=== PATIENT | male | born 1955 | race Caucasian/White ===

== ENCOUNTER 2016-08-14 08:32 | Observation (INO) ==
--- NOTE | 2016-08-14 09:04 | Emergency Department Note ---
Disposition Clinical Impression: Atrial fibrillation with RVR Disposition: Admitted As Inpatient Condition: Fair Time of Disposition: 09:24 Arrhythmia/Palpitations HPI - General Chief Complaint: ED Arrhythmia/Palpitations Stated Complaint: "a-fib" Time Seen by Provider: 08/14/16 08:39 Source: patient Limitations: no limitations Nursing Notes Reviewed: Yes Vital Signs Reviewed: Yes - History of Present Illness HPI Narrative: 60-year-old who has a history of atrial fibrillation in the past he was admitted on amiodarone and then for about 6 months then brought back into the hospital switched to sotalol and beta jassi. He should has been in sinus since that time and developed irregular heartbeat this morning was some exertional chest discomfort. Fred had a cardiac workup in several years. Factors include hypertension, cigarette smoking borderline diabetes. Pt Subjective Complaint: rapid heart beat, irregular heart beat Onset (ago): year(s) Severity: mild, moderate Context: occurred during rest Arrhythmia History: atrial fibrillation Associated symptoms: Reports: denies other symptoms Treatments prior to arrival: beta-jassi - Related Data Home Medications Medication Instructions Recorded Confirmed Albuterol Sulfate [Albuterol 2 puff IH Q6HR PRN 08/14/16 08/14/16 Inhaler] Aspirin [Lo-Dose Aspirin EC] 81 mg PO DAILY 08/14/16 08/14/16 Carvedilol [Coreg] 3.125 mg PO DAILY 08/14/16 08/14/16 Fluticasone/Salmeterol [Advair 1 puff IH Q12H 08/14/16 08/14/16 250-50 Diskus] Furosemide [Lasix] 40 mg PO DAILY 08/14/16 08/14/16 Multivitamin [One Daily Essential] 1 tab PO DAILY 08/14/16 08/14/16 Rivaroxaban [Xarelto] 20 mg PO DAILY 08/14/16 08/14/16 Sotalol HCl [Betapace] 160 mg PO DAILY 08/14/16 08/14/16 Spironolactone [Aldactone] 12.5 mg PO DAILY 08/14/16 08/14/16 Allergies Allergy/AdvReac Type Severity Reaction Status Date / Time lisinopril AdvReac Cough Verified 11/26/15 07:00 flu vaccine Allergy Vomiting Uncoded 11/26/15 07:00 All systems ED: reviewed and negative except as stated. Constitutional: Denies: fever, chills, weakness, weight change Eyes: Denies: eye pain, eye discharge, vision change ENT ED: Denies: ear pain, throat pain, dental pain, hearing loss, epistaxis, congestion, dysphagia Cardiovascular: Reports: palpitations. Denies: chest pain, dyspnea on exertion , edema, syncope Respiratory: Denies: cough, dyspnea, wheezes, hemoptysis, stridor Gastrointestinal: Denies: abdominal pain, nausea, vomiting, diarrhea, constipation, hematemesis, melena, hematochezia Genitourinary: Denies: urgency, dysuria, frequency, hematuria Musculoskeletal: Denies: back pain, neck pain, arthralgia, myalgia Integumentary: Denies: rash, abrasion, lesions Neurological: Denies: headache, weakness, numbness, paresthesias, confusion, abnormal gait, vertigo Psychiatric: Denies: anxiety, depression, suicidal thoughts, homicidal thoughts , auditory hallucinations, visual hallucinations Endocrine: Denies: fatigue Hematological/Lymphatic: Denies: easy bleeding, easy bruising Allergic/Immunologic: Denies: facial swelling, urticaria Past Medical History - Past Medical History Medical history: Reports: atrial fibrillation, COPD, coronary artery disease, diabetes Psychiatric history: Reports: no psych history - Social History Smoking Status: Never smoker Smokeless Tobacco Status: No Alcohol use: Reports: occasionally Drug use: Reports: none Physical Exam - General Limitations: no limitations General appearance: alert, in no apparent distress - Head Head exam: atraumatic, normocephalic, normal inspection - Eye Eye exam: Present: normal appearance, PERRL, EOMI - ENT ENT exam: normal exam, normal oropharynx, mucous membranes moist - Neck Neck exam: Present: normal inspection, full ROM, trachea midline - Chest Chest inspection: Present: normal inspection, symmetric chest wall rise - Respiratory Respiratory exam: Present: normal lung sounds bilaterally - Cardiovascular Cardiovascular exam: Present: tachycardia, irregular rhythm - Abdominal Exam Abdominal exam: Present: soft, Non-Tender. Absent: tenderness, distention, guarding, rebound, rigidity - Extremities Exam Extremities exam: Present: normal inspection, full ROM. Absent: tenderness, pedal edema - Expanded Lower Extremity Exam Neurovascular/Tendon exam: Absent: motor deficit, sensory deficit, tendon deficit Gait: observed and normal - Back Exam Back exam: Present: normal inspection, full ROM. Absent: tenderness - Neurological Exam Neurological exam: Present: alert, oriented X3 - Psychiatric Psychiatric exam: Present: normal affect, normal mood - Skin Skin exam: Present: warm, dry, intact, normal color Course - Consultations Consultation #1: Discussed with cardiology , recommends admission as the patient is in A. fib on a high dose of sotalol. Time: 09:23 Consultation #2: Discussed with , who feels cardiology should admit the patient. 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 Time: 11:07 Consultation #3: I discussed the case with Dr. Soliz the on-call plywood factory worker who would like the patient admitted to the hospitalist. Time: 11:13 Additional Consultation(s): 11:20 AM discussed with , admit to 2. Vital Signs Temperature 97.9 F 08/14/16 08:34 Pulse Rate 110 08/14/16 08:34 Respiratory Rate 16 08/14/16 08:34 Blood Pressure 113/76 08/14/16 08:34 O2 Sat by Pulse Oximetry 96 08/14/16 08:34 Temperature 98 F 08/14/16 11:58 Pulse Rate 114 08/14/16 12:00 Respiratory Rate 17 08/14/16 11:58 Blood Pressure 127/87 08/14/16 11:58 O2 Sat by Pulse Oximetry 99 08/14/16 11:58 Oxygen Delivery Oxygen Delivery Room Air Arrhythmia/Palpitations - Lab Data Result diagrams: 08/14/16 09:07 08/14/16 09:07 Lab Results 08/14/16 08/14/16 08/14/16 Range/Units 09:07 09:07 09:07 WBC 6.9 (4.3-11.1) K/mcL RBC 4.83 (4.19-5.50) M/mcL Hgb 15.1 (12.9-16.9) g/dL Hct 44.3 (37.5-50.1) % MCV 91.7 (83.0-100.0) fL MCH 31.3 (28.0-33.3) pg MCHC 34.1 (31.6-35.5) g/dL RDW 13.1 (11.5-14.5) % Plt Count 185 (140-400) K/mcL MPV 10.2 (9.4-12.4) fL Immature Gran % 0.3 (0-4) % Seg Neutrophils % 59.1 % Lymphocytes % 25.5 % Monocytes % 11.8 % Eosinophils % 2.7 % Basophils % 0.6 % Neutrophils # 4.1 (1.6-8.9) K/mcL Lymphocytes # 1.8 (0.6-4.6) K/mcL Monocytes # 0.8 (0.0-1.3) K/mcL Eosinophils # 0.2 (0.0-0.6) K/mcL Basophils # 0.0 (0.0-0.2) K/mcL PT 17.4 H (9.4-12.1) Seconds INR 1.6 APTT 36.5 H (26.0-36.0) Seconds Sodium 136 (136-145) mEq/L Potassium 4.1 (3.5-4.5) mEq/L Chloride 106 (98-109) mEq/L Carbon Dioxide 22 (19-29) mEq/L BUN 17 (8-26) mg/dL Creatinine 1.00 (0.72-1.25) mg/dL Est GFR ( Amer) > 60 (> 60) Est GFR (Non-Af Amer) > 60 (> 60) BUN/Creatinine Ratio 17 (6-26) Glucose 136 H (70-99) mg/dL Calculated Osmolality 286 (280-300) Calcium 8.8 (8.6-10.8) mg/dL Troponin I (0-0.03) ng/mL TSH 1.797 (0.350-4.840) mcIU/mL 08/14/16 Range/Units 09:07 WBC (4.3-11.1) K/mcL RBC (4.19-5.50) M/mcL Hgb (12.9-16.9) g/dL Hct (37.5-50.1) % MCV (83.0-100.0) fL MCH (28.0-33.3) pg MCHC (31.6-35.5) g/dL RDW (11.5-14.5) % Plt Count (140-400) K/mcL MPV (9.4-12.4) fL Immature Gran % (0-4) % Seg Neutrophils % % Lymphocytes % % Monocytes % % Eosinophils % % Basophils % % Neutrophils # (1.6-8.9) K/mcL Lymphocytes # (0.6-4.6) K/mcL Monocytes # (0.0-1.3) K/mcL Eosinophils # (0.0-0.6) K/mcL Basophils # (0.0-0.2) K/mcL PT (9.4-12.1) Seconds INR APTT (26.0-36.0) Seconds Sodium (136-145) mEq/L Potassium (3.5-4.5) mEq/L Chloride (98-109) mEq/L Carbon Dioxide (19-29) mEq/L BUN (8-26) mg/dL Creatinine (0.72-1.25) mg/dL Est GFR ( Amer) (> 60) Est GFR (Non-Af Amer) (> 60) BUN/Creatinine Ratio (6-26) Glucose (70-99) mg/dL Calculated Osmolality (280-300) Calcium (8.6-10.8) mg/dL Troponin I 0.01 (0-0.03) ng/mL TSH (0.350-4.840) mcIU/mL - EKG Data EKG attestation: Yes I reviewed and interpreted this EKG. Rate: tachycardia Rhythm: A.Fib Interpretation: no acute changes
[2016-08-14 09:23] LABS: Basophils % 0.6 %; Eosinophils # 0.2 K/mcL (0.0-0.6); Eosinophils % 2.7 %; Hematocrit 44.3 % (37.5-50.1); Hemoglobin 15.1 g/dL (12.9-16.9); Immature Granulocytes % 0.3 % (0-4); Lymphocytes # 1.8 K/mcL (0.6-4.6); Lymphocytes % 25.5 %; Mean Corpuscular HGB Conc 34.1 g/dL (31.6-35.5); Mean Corpuscular Hemoglobin 31.3 pg (28.0-33.3); Mean Corpuscular Volume 91.7 fL (83.0-100.0); Mean Platelet Volume 10.2 fL (9.4-12.4); Monocytes # 0.8 K/mcL (0.0-1.3); Monocytes % 11.8 %; Neutrophils # 4.1 K/mcL (1.6-8.9); Platelet Count 185 K/mcL (140-400); Red Blood Count 4.83 M/mcL (4.19-5.50); Red Cell Distribution Width 13.1 % (11.5-14.5); Segmented Neutrophils % 59.1 %
[2016-08-14 09:30] LABS: INR 1.6; Prothrombin Time 17.4 Seconds (9.4-12.1)
[2016-08-14 09:32] LABS: Activated Partial Thrombo Time 36.5 Seconds (26.0-36.0)
[2016-08-14 09:34] LABS: BUN/Creatinine Ratio 17 (6-26); Blood Urea Nitrogen 17 mg/dL (8-26); Calcium 8.8 mg/dL (8.6-10.8); Carbon Dioxide 22 mEq/L (19-29); Chloride 106 mEq/L (98-109); Glucose 136 mg/dL (70-99); Osmolality,Calculated 286 (280-300); Potassium 4.1 mEq/L (3.5-4.5); Sodium 136 mEq/L (136-145); eGFR For African Americans > 60 (> 60); eGFR For Non-African Americans > 60 (> 60)
[2016-08-14 09:56] LABS: Thyroid Stimulating Hormone 1.797 mcIU/mL (0.350-4.840)
[2016-08-14] MEDS ORDERED: Ondansetron 4 MG/2 ML VIAL IVP PRN (11:17)
[2016-08-14] MEDS ORDERED: Naloxone 0.4 MG/ML INJ IVP PRN (11:17)
[2016-08-14] MEDS: Budesonide/Formoterol 80/4.5 MDI IH SCH ×2 (11:30→20:26)
--- NOTE | 2016-08-14 12:35 | Internal Med History&Physical ---
Date of Encounter: 08/14/16 Time of Encounter: 12:35 Assessment and Plan (1) Atrial fibrillation with RVR Current visit: Yes Status: Acute Gave IV Cardizem one dose Resumed home medicatons, may titrate coreg up, starting from next dose Obtain ECHO Cardiology eval Patient is clinically stable (2) Morbid obesity Current visit: Yes Status: Chronic Lifestyle modification Qualifiers: Obesity type: unspecified obesity type Qualified Code(s): E66.01 - Morbid ( severe) obesity due to excess calories (3) Hypertension Current visit: Yes Status: Chronic Controlled, continue current meds Qualifiers: Hypertension type: essential hypertension Qualified Code(s): I10 - Essential (primary) hypertension Internal Medicine - H&P: HPI Chief complaint: Afib Admitted From: Home Plans for Post Hospital Care: Home History of present illness: Mr. Landa is a 60 year old male with Morbid Obesity, HTN, Known Afib, Morbid Obesity, States he was at work (here at [employer] ) and started feeling "wierd", he got an EKG done which showed Afib with RVR, VR 120 He reports he has been in rhythm, for at least 4-5 years and has been complaint with his medications He has no chest pain, chest pressure, palpitations, dizziness, difficulty breathing, orthopnea, PND, or leg swelling He denies illicit drug use After he was found in Afib with RVR, he presented to cardiology clinic, from where he was referred to ER for further eval. Patient mentioned his senior pl sql developer said he may need "cardioversion' At this time of review, he is asymptomatic, his vitals are stable and he is able to participate in the history taking and physicals Work up in ER revealed Afib with RVR, normal CBC, Chem, TSH WNL. Initial troponin negative. Patient is on high dose of sotalol and low dose coreg, he did not miss any medications. He will be placed on observation for afib with RVR with cardiology consultation Past Med Surg Social Fam HX - Past Medical History Medical history: atrial fibrillation, COPD, coronary artery disease, diabetes Psychiatric history: no psych history - Social History Smoking Status: Former smoker Smokeless Tobacco Status: No Alcohol use: occasionally Drug use: none Internal Medicine - H&P: Meds Albuterol Sulfate [Albuterol Inhaler] 2 puff IH Q6HR PRN 08/14/16 [History] Aspirin [Lo-Dose Aspirin EC] 81 mg PO DAILY 08/14/16 [History] Carvedilol [Coreg] 3.125 mg PO DAILY 08/14/16 [History] Fluticasone/Salmeterol [Advair 250-50 Diskus] 1 puff IH Q12H 08/14/16 [History] Furosemide [Lasix] 40 mg PO DAILY 08/14/16 [History] Multivitamin [One Daily Essential] 1 tab PO DAILY 08/14/16 [History] Rivaroxaban [Xarelto] 20 mg PO DAILY 08/14/16 [History] Sotalol HCl [Betapace] 160 mg PO DAILY 08/14/16 [History] Spironolactone [Aldactone] 12.5 mg PO DAILY 08/14/16 [History] Allergies lisinopril Adverse Reaction (Verified 11/26/15 07:00) Cough flu vaccine Allergy (Uncoded 11/26/15 07:00) Vomiting All Systems PM: A 10-system review of systems was performed and is negative for pertinent findings except as documented above in the HPI. - Constitutional Constitutional: no chills, no fever(s), no night sweats - EENT Eyes: no change in vision, no discharge, no pain, no photophobia Ears: no ear discharge, no ear pain, no tinnitus Nose, mouth and throat: no dysphagia, no nasal discharge, no neck pain, no sore throat - Cardiovascular Cardiovascular ROS IM: as per HPI - Respiratory Respiratory: as per HPI - Gastrointestinal Gastrointestinal: no abdominal pain, no diarrhea, no hematemesis, no hematochezia, no melena, no nausea, no vomiting - Musculoskeletal Musculoskeletal ROS IM: no numbness, no tingling - Integumentary Integumentary IM: no rash, no unusual bruising - Neurological Neurological ROS: no confusion, no convulsions, no focal weakness, no numbness, no tingling, no tremor(s) - Hematologic/Lymphatic Hematologic/Lymphatic: no easy bruising - Constitutional Vitals: Temp Pulse Resp BP Pulse Ox 98 F 111 17 127/87 99 08/14/16 11:58 08/14/16 11:58 08/14/16 11:58 08/14/16 11:58 05/09/17 11:58 General appearance: Present: A&O X 3, morbidly obese, pleasant - Head Head exam: Present: atraumatic, normocephalic - Eye Eye exam: Present: PERRL, conjuntiva pink, sclera anicteric Pupils: Present: PERRL - Neck Neck exam general surgery: Present: supple, trachea midline. Absent: lymphadenopathy - Respiratory Respiratory exam: Present: CTAB. Absent: accessory muscle use, rales, rhonchi, wheezes - Cardiovascular Cardiovascular exam: Present: RRR, +S1, +S2. Absent: diastolic murmur, gallop, rubs, systolic murmur - GI/Abdominal GI/Abdominal exam: Present: normal bowel sounds, soft, no peritoneal signs. Absent: distended, tenderness - Extremities Exam Extremities exam: Present: warm, radial pulses palpable and symetrical. Absent : calf tenderness, cyanotic Additional comments: Chronic venous stasis changes, no pedal edema. Bilateral knee scars, normal ROM. Pulses present, no ulcers - Neurological Exam Neurological exam: Present: alert, CN II-XII intact, oriented X3, no focal deficits. Absent: pronater drift, facial droop, speech deficit - Skin Skin exam: Present: dry, intact Internal Med - H&P Results - Labs CBC & Chem 7: 08/14/16 09:07 08/14/16 09:07
--- NOTE | 2016-08-14 13:45 | Cardiology Consult Note ---
Date of Encounter: 08/14/16 Time of Encounter: 13:45 Assessment and Plan (1) Atrial fibrillation with RVR Current Visit: Yes Status: Acute - Continue home medications: Coreg 3.125 mg daily, Lasix 40 mg daily, sotalol 160 mg twice a day, Xarelto 20 mg daily, spironolactone 12.5 mg daily. - TTE ordered to evaluate EF and any wall motion abnormalities. - NPO at midnight for cardioversion tomorrow - suspect pt's chest discomfort from the A fib with RVR. No further ischemic workup necessary at this time. Discussion w patient/family: The assessment and plan as outlined above was discussed with the patient and/or family members who expressed understanding and agreement. All questions were answered. Thank you for involving us in the care of your patient. Please call with any questions. History of Present Illness Consult date: 08/14/16 Requesting physician: Madi Rocha Consult reason: A fib with RVR Chief complaint: palpitations History of present illness: Mr. Landa is a 60 year old male with a past medical history of atrial fibrillation on xarelto, COPD, CAD, diet controlled type 2 diabetes, morbid obesity with BMI 44 who presented to [facility] ED in atrial fibrillation with RVR. Patient states this morning he got up and felt some chest tightness that seemed to come and go. Then walking into work, he got short of breath and felt his pulse racing. 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 fib with RVR. They then sent him down to the emergency department for evaluation. Patient sees fur blowing machine operator Dr. Hager and last appointment was 2016. No medication changes were made at that time. His last heart catheter was done 10/15/2011 showing LVEF 10-15% with minimal CAD. A repeat transthoracic echo on 02/14/2015 showed left ventricular ejection fraction of 50 -55% with mildly dilated LV, mild systolic dysfunction, moderate LAE. Patient states the cardiomyopathy back in 2011 was likely due to his lifestyle. He had been going through a divorce and was drinking at least a 12 pack a day. States he still drinks about 2 beers daily. Occasionally smokes a cigarette. Past Med Surg Social Fam HX - Past Medical History Medical history: atrial fibrillation, COPD, coronary artery disease, diabetes Psychiatric history: no psych history - Social History Smoking Status: Former smoker Smokeless Tobacco Status: No Alcohol use: occasionally Drug use: none Medications and Allergies Albuterol Sulfate [Albuterol Inhaler] 2 puff IH Q6HR PRN 08/14/16 [History] Aspirin [Lo-Dose Aspirin EC] 81 mg PO DAILY 08/14/16 [History] Carvedilol [Coreg] 3.125 mg PO DAILY 08/14/16 [History] Fluticasone/Salmeterol [Advair 250-50 Diskus] 1 puff IH Q12H 08/14/16 [History] Furosemide [Lasix] 40 mg PO DAILY 08/14/16 [History] Multivitamin [One Daily Essential] 1 tab PO DAILY 08/14/16 [History] Rivaroxaban [Xarelto] 20 mg PO DAILY 08/14/16 [History] Sotalol HCl [Betapace] 160 mg PO DAILY 08/14/16 [History] Spironolactone [Aldactone] 12.5 mg PO DAILY 08/14/16 [History] Allergies lisinopril Adverse Reaction (Verified 11/26/15 07:00) Cough flu vaccine Allergy (Uncoded 11/26/15 07:00) Vomiting All Systems Review: A 10-system review of systems was performed and is negative for pertinent findings except as documented above in the HPI. - Constitutional Constitutional: no weakness - EENT Eyes: no blurred vision Nose, mouth and throat: no dysphagia - Cardiovascular Cardiovascular: dyspnea on exertion, palpitations, no chest pain at rest - Respiratory Respiratory: dyspnea, no cough - Gastrointestinal Gastrointestinal: no abdominal pain, no nausea - Genitourinary Genitourinary: no dysuria - Musculoskeletal Musculoskeletal: back pain (chronic), no muscle weakness - Integumentary Integumentary: no rash - Neurological Neurological: no dizziness, no focal weakness Physical Examination Vital Signs, Last 4 Hours Temp Pulse Resp BP Pulse Ox 08/14/16 12:00 114 08/14/16 11:58 98 F 111 17 127/87 99 08/14/16 11:36 18 114/90 08/14/16 11:31 116 19 101/80 98 08/14/16 11:28 110 18 114/90 97 General: Conversant, No Apparent Distress HEENT: Atraumatic, Mucus Membranes Moist Neck: No JVD, Normal carotid pulses Cardiac: Other (a fib with rate 80s-110s) Lungs: Normal Breath Sounds, No Wheeze, Rales, Rhonchi Neuro: Alert and responsive, No focal deficits noted Abdomen: Soft, Non-Tender Skin: No rashes noted on visualized skin Musculoskeletal: No Chest Wall Tenderness Extremities: No Edema, Normal Pulses Results 08/14/16 09:07 08/14/16 09:07 - Imaging and Cardiology Chest Xray: report reviewed - EKG Interpretation EKG results cardiology: personally reviewed, no diagnostic ischemia, other (11: 61- a fib with rvr with rate 140s bpm. QTC 436, Normal axis) Consult Discharge Plan - Plan Referrals: Christopher Poole MD [Primary Care Provider] -
[2016-08-14] MEDS ORDERED: Perflutren Lipid Microsphere 1.3 ML in 0.9 % Sodium Chloride 8.7 ML IVP ONE (16:54)
[2016-08-14] MEDS ORDERED: Perflutren Lipid Microsphere 2 ML VIAL ONE (17:00)
--- NOTE | 2016-08-14 17:08 | Electrocardiograph Report ---
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
--- NOTE | 2016-08-14 17:10 | Electrocardiograph Report ---
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
[2016-08-15 06:13] LABS: Basophils % 0.5 %; Eosinophils # 0.2 K/mcL (0.0-0.6); Eosinophils % 2.4 %; Hematocrit 41.3 % (37.5-50.1); Hemoglobin 14.5 g/dL (12.9-16.9); Immature Granulocytes % 0.2 % (0-4); Lymphocytes # 1.6 K/mcL (0.6-4.6); Lymphocytes % 25.3 %; Mean Corpuscular HGB Conc 35.1 g/dL (31.6-35.5); Mean Corpuscular Volume 91.2 fL (83.0-100.0); Mean Platelet Volume 10.2 fL (9.4-12.4); Monocytes # 0.7 K/mcL (0.0-1.3); Monocytes % 11.3 %; Neutrophils # 3.8 K/mcL (1.6-8.9); Platelet Count 146 K/mcL (140-400); Red Blood Count 4.53 M/mcL (4.19-5.50); Red Cell Distribution Width 12.9 % (11.5-14.5); Segmented Neutrophils % 60.3 %
[2016-08-15 06:21] LABS: BUN/Creatinine Ratio 17 (6-26); Blood Urea Nitrogen 15 mg/dL (8-26); Calcium 8.7 mg/dL (8.6-10.8); Carbon Dioxide 24 mEq/L (19-29); Chloride 105 mEq/L (98-109); Glucose 131 mg/dL (70-99); Magnesium 1.7 mg/dL (1.6-2.6); Osmolality,Calculated 287 (280-300); Phosphorous 3.4 mg/dL (2.3-4.7); Potassium 4.1 mEq/L (3.5-4.5); Sodium 137 mEq/L (136-145); eGFR For African Americans > 60 (> 60); eGFR For Non-African Americans > 60 (> 60)
[2016-08-15] MEDS: Budesonide/Formoterol 80/4.5 MDI IH SCH (08:17)
[2016-08-15] MEDS ORDERED: Multivit/Ca/Min/Fe/FA 1 TAB TABLET PO SCH (09:00)
[2016-08-15] MEDS ORDERED: *HR* Rivaroxaban 10 MG TABLET PO SCH (09:00)
[2016-08-15] MEDS ORDERED: Spironolactone 25 MG TABLET PO SCH (09:00)
[2016-08-15] MEDS ORDERED: Furosemide 40 MG TABLET PO SCH (09:00)
[2016-08-15] MEDS ORDERED: Aspirin Enteric Coated 81 MG Tablet PO SCH (09:00)
--- NOTE | 2016-08-15 11:03 | ECHO - Doppler Report ---
Echo with Imaging Enhancement Agent Name: Duran Landa Date of Study: 08/14/2016 Date: 1955 Ht: 74.0 in Medical Record#: [id number] Age: 60 Wt: 347.0 lb Gender: Male BSA: 2.75 Order #: [id number] Location: [facility] Room #: 2N14 Reading Physician: Bertram Campa DO, FACJAZMIN Tesfaye Title Insurance Agent: Annette Steele Ordering Physician: Yassine Sanchez CNP Primary Physician: Christopher Poole MD Indications: Afib Impressions: Technically sub-optimal due to body habitus. Atrial fibrillation with RVR; HR 100-120 bpm. LVEF 25%. Severely dilated left ventricle. Severe global left ventricular systolic dysfunction. Indeterminate diastolic function. Normal right ventricular structure and function. Severely dilated left atrium. Unable to estimate RVSP due to lack of TR jet. No significant valvular dysfunction. Compared to prior report from 2015, LV size has enlarged and function has decreased. Left Ventricular Wall Motion: Rest Echo Findings The apex, apical inferior, mid inferior, basal inferior, apical anterior, mid anterior, basal anterior, apical septal, mid inferior septal, basal inferior septal, apical lateral, mid anterior lateral, basal anterior lateral, mid anterior septal, mid inferior lateral, basal anterior septal and basal inferior lateral lazaro were hypokinetic. Findings: Study Quality * Technically sub-optimal due to body habitus. ECG Findings * Atrial fibrillation with RVR; HR 100-120 bpm. Left Ventricle * LVEF 25%. * Severely dilated left ventricle. * Severe global left ventricular systolic dysfunction. * Indeterminate diastolic function. Right Ventricle * Normal right ventricular structure and function. Left Atrium * Severely dilated left atrium. Right Atrium * Moderately dilated right atrium. Interatrial Septum * Interatrial septum not well evaluated. Aortic Valve * Aortic valve not well visualized. * No aortic regurgitation. * No aortic stenosis. Mitral Valve * Normal mitral valve structure and function. * No mitral regurgitation. * No mitral stenosis. Tricuspid Valve * Normal tricuspid valve structure and function. * Trace tricuspid regurgitation. * Unable to estimate RVSP due to lack of TR jet. Pulmonic Valve * Pulmonic valve not well visualized. Aorta * Normally sized aortic root. Pericardium * The pericardium appears normal. IVC * Normal IVC dimensions and inspiratory collapse. Pulmonary Artery * Normal visualized portions of the main pulmonary artery. History Hypertension Years 40 Packs 1 Congestive Heart Failure 02/14/2015 a Previous Echo was performed. Contrast: Definity 1.3 ml in 8.7 ml of saline 3 ml. Measurements: BP: 127/ 87 2D Normal Values RVIDd: 4.20 cm <2.7 cm IVSd: 1.10 cm 0.6 - 1.0 cm LVIDd: 6.50 cm 3.7 - 5.6 cm LVPWd: 1.10 cm 0.6 - 1.1 cm LVIDs: 5.10 cm 1.5 - 3.6 cm AO: 3.00 cm < 4.0 cm LA: 5.20 cm 2.0 - 4.0cm %FS: 22.70 cm >25 % LA volume: 115 Mitral Valve Peak E:1.03 m/sec Peak E' Lat Edward:10.2 cm/s Peak E' Med Edward:7.99 cm/s E/E' Lat Ratio:10.1 E/E' Med Ratio:12.9 Tricuspid Valve TV Regurg Peak Grad: 10.00mmHg TV Regurg Peak Edward: 1.55m/sec Updated by Bertram Campa DO, ZELALEM, JAZMIN, ANDRIY on 08/15/2016 10:55:32 AM electronically signed on 08/15/2016 10:58:00 AM with status of Final Wall Motion Pollack: 1=Normal, 2=Hypokinesis, 3=Akinesis, 4=Dyskinesis, 5=Aneurysmal, 6=Hyperkinetic, X=Not Visualized (Blank)=Missing
[2016-08-15] MEDS ORDERED: *HR* Midazolam HCl 5 MG/5 ML VIAL IVP ONE ×2 (11:33→12:06)
[2016-08-15] MEDS ORDERED: *HR* FentaNYL (PF) 250 MCG/5 ML VIAL ONE (11:33)
[2016-08-15] MEDS ORDERED: 0.9 % Sodium Chloride 1,000 ML ONE (11:42)
--- NOTE | 2016-08-15 11:46 | Pre-Sedation Evaluation ---
Pre-sedation evaluation - Pre-sedation checklist Date of procedure: 08/15/16 Procedure: cv Recent Vitals: Last Vital Signs Temp 97.7 F 08/15/16 08:01 Pulse 114 08/15/16 08:52 Resp 16 08/15/16 08:17 BP 109/91 08/15/16 08:01 Pulse Ox 97 08/15/16 08:17 H&P (including ROS) documented in medical record: Yes Previous reaction to sedatives/anesthetics: No Dietary Status: NPO after Midnight Airway Assessment: Patient can open mouth completely, TMJ function normal, Micrognathia (under-bite, receding chin) absent Dentition: No loose teeth or bridges Possible difficult airway: No ASA Classification *see protocol: CLASS II-Mild systemic disease Plan of Care: Pt appropriate candidate for procedure/moderate/conscious sedation , Risks/benefits of procedure/sedation discussed w/ patient/family
--- NOTE | 2016-08-15 13:52 | Event Note ---
Date of Encounter: 08/15/16 Time of Encounter: 10:00 - Cardiology Event Note No acute events overnight. Okay to proceed with cardioversion today.
[2016-08-15 15:32] VITALS: BP 116/82
--- NOTE | 2016-08-15 16:05 | Discharge Summary ---
Date of Encounter: 08/15/16 Time of Encounter: 16:00 - Discharge Diagnosis (1) Atrial fibrillation with RVR Priority: Primary Status: Acute (2) Hypertension Priority: Secondary Status: Chronic Qualifiers: Hypertension type: essential hypertension Qualified Code(s): I10 - Essential (primary) hypertension (3) Morbid obesity Priority: Secondary Status: Chronic Qualifiers: Obesity type: unspecified obesity type Qualified Code(s): E66.01 - Morbid ( severe) obesity due to excess calories - Discharge Medications Home Medications: Albuterol Sulfate [Albuterol Inhaler] 2 puff IH Q6HR PRN 08/14/16 [History] Aspirin [Lo-Dose Aspirin EC] 81 mg PO DAILY 08/14/16 [History] Carvedilol [Coreg] 3.125 mg PO DAILY 08/14/16 [History] Fluticasone/Salmeterol [Advair 250-50 Diskus] 1 puff IH Q12H 08/14/16 [History] Furosemide [Lasix] 40 mg PO DAILY 08/14/16 [History] Multivitamin [One Daily Essential] 1 tab PO DAILY 08/14/16 [History] Rivaroxaban [Xarelto] 20 mg PO DAILY 08/14/16 [History] Sotalol HCl [Betapace] 160 mg PO BID 08/14/16 [History] Spironolactone [Aldactone] 12.5 mg PO DAILY 08/14/16 [History] Allergies/Adverse Reactions: Allergies lisinopril Adverse Reaction (Verified 11/26/15 07:00) Cough flu vaccine Allergy (Uncoded 11/26/15 07:00) Vomiting Procedures/tests Complete & Pending: Procedures Performed prior 72 hours Category Date Time Status CL Cardioversion [CL] Routine Telecommunications Project Manager 08/14/16 15:26 Ordered ECG 12 lead ECG [ECG] Routine Y 08/14/16 11:59 Completed EV echocardiogram w enhance Routine Y 08/14/16 15:25 Completed Date of admission: 08/14/16 11:19 Primary care physician: Christopher Poole MD Consults: 08/14/16 12:37 Consult to Cardiology [CONS] Routine Comment: Consulting Provider: Card[facility] [place] Reason for Consult: Afib with RVR, asymptomatic, referred for possible cardioversion?? from cardiology clinic, kindly evaluate. Thank you. Call Completed: Yes - Patient Status Disposition: Home, Self-Care Condition: Good Functional capacity at discharge: independent ambulation Overall status at discharge: patient is progressing back to baseline - Discharge Instructions Instructions: Atrial Fibrillation (DC), Chronic Hypertension (DC), Obesity (DC) Follow Up With: Christopher Poole MD [Primary Care Provider] - 08/23/16 1:00 pm Estuardo Hager MD [Partnered Physician] - (IN 1 WEEK) Additional Instructions: PLEASE CHECK YOUR BLOOD PRESSURE TWICE DAILY (SAME TIME EVERY DAY IN THE MORNING AND EVENING), WRITE DOWN THE NUMBERS AND BRING RECORD TO DOCTOR'S APPOINTMENT. - Diet and Activity Activity: resume usual activities as tolerated Diet: low fat, low cholesterol, low salt diet Interval History: patient underwent cardioversion this morning with successful conversion to NSR. Hospital course: Mr. 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 His last heart catheter was done 10/15/2011 showing LVEF 10-15% with minimal CAD. Transthoracic echo on 02/14/2015 showed left ventricular ejection fraction of 50 -55% with mildly dilated LV, mild systolic dysfunction, moderate LAE. The day of admission, he got up and felt some chest tightness that seemed to come and go. Then walking into work, he got short of breath and felt his pulse racing. 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 fib with RVR. In our ED, he was in afib with HR of 118 in EKG. He underwent DCCV with successful conversion to NSR. Repeat echocardiogram showed atrial fib with HR 120s, LVEF 25%, severely LV systolic dysfunction. Current EF is likely due to tachycardia induced-- discussed with Dr. Benigno Soliz. Cardioverted successfully today to SR. PLAN: Follow up in the cardiology clinic for repeat echo as outpatient. Continue Sotalol and Coreg. Patient explained in detail his diagnosis and treatment. He verbalized understanding and agreed with the plan. all questions answered. - Time Spent with Patient Total time spent providing and/or coordinating discharge services: - Constitutional Vitals: Temp Pulse Resp BP Pulse Ox 97.4 F L 75 16 116/82 98 08/15/16 15:30 08/15/16 15:30 08/15/16 15:30 08/15/16 15:30 08/15/16 15:30 General appearance: Present: A&O X 3, morbidly obese, pleasant
--- NOTE | 2016-08-15 17:02 | Event Note ---
Date of Encounter: 08/15/16 Time of Encounter: 17:00 - Cardiology Event Note Echo resulted--EF 25%, globally reduced. EF was 50-55% 02/2015. Hx of NICMP with EF 10-15% in 2011 with negative cath. Current CMP thought to be tachycardia induced--discussed with Dr. Benigno Soliz. Cardioverted successfully today to SR. Recommend repeat echo as outpt now that pt is out of A-Fib and not tachycardic. Cardiology signing off. Reconsult PRN. Continue Sotalol and Coreg.
--- NOTE | 2016-08-16 16:03 | Invasive Diagnostic Lab ---
Cardioversion Name: Duran Landa Date of Study: 08/15/2016 : 1955 Ht: 188.0 cm / 74.0 in Medical Record#: [id number] Age: 60 Wt: 158.2 kg / 348.8 lb Gender: Male BSA: 2.75 Location: Fluoro Dose: 5 mGy BMI: 44.76 Operating Physician: Benigno Soliz MD, FACC Referring MD: Procedures Performed: Procedure CARDIOVERSION, EXTERNAL Indications: Description Atrial arrhythmia Impressions: Recommendations: Procedure Description: Following informed consent , the patient was sedated. After adequate sedation was achieved, cardioversion in the AP approach was successful using 300 Joules of biphasic energy. Normal sinus rhythm was restored after 2 attempt(s). The patient was monitored for the standard 30 minutes post procedure. Attempt # 1 200 joules Attempt # 2 300 joules Procedure Medications Time Medication Dose Unit Route Given By 11:45 AM Oxygen 2 L/min nasal cannula Rosemary Campos RN 11:45 AM Versed 2 Mg Intravenous Rosemary Campos RN 11:45 AM Fentanyl 50 Mcg Intravenous Rosemary Campos RN 11:50 AM Oxygen 6 L/min nasal cannula Rosemary Campos RN 11:51 AM Versed 2 Mg Intravenous Rosemary Campos RN 11:51 AM Fentanyl 25 Mcg Intravenous Rosemary Campos RN 11:52 AM Oxygen 6 L/min simple face mask Rosemary Campos RN 11:57 AM Benadryl 50 Mg Intravenous Rosemary Campos RN 11:59 AM Versed 1 Mg Intravenous Rosemary Campos RN 11:59 AM Fentanyl 25 Mcg Intravenous Rosemary Campos RN 12:01 PM Versed 1 Mg Intravenous Rosemary Campos RN 12:01 PM Fentanyl 25 Mcg Intravenous Rosemary Campos RN 12:07 PM Versed 1 Mg Intravenous Rosemary Campos RN 12:07 PM Fentanyl 25 Mcg Intravenous Rosemary Campos RN Contrast: Isovue 0 ml. Complications: No complications occurred during the procedure. Complication None Updated by Benigno Soliz MD, FAC on 08/16/2016 3:58:59 PM electronically signed on 08/16/2016 3:59:41 PM with status of Final
== END 2016-08-15 17:24 | disposition home or self-care (01) ==
LOC: EMEROO 08:32 → 2NNU 08:32
PROVIDERS: ADMIT Internal Medicine; ATTEND Internal Medicine

== ENCOUNTER 2016-08-30 09:59 | Inpatient (IN) ==
--- NOTE | 2016-08-30 10:08 | Emergency Department Note ---
Disposition Clinical Impression: Atrial fibrillation with RVR, Palpitations Disposition: Admitted As Inpatient Condition: Good Referrals: Christopher Poole MD [Primary Care Provider] - Forms: ED Satisfaction Letter Arrhythmia/Palpitations HPI - General Chief Complaint: ED Arrhythmia/Palpitations Stated Complaint: A-Fib Time Seen by Provider: 08/30/16 10:04 Source: patient Mode of arrival: ambulatory Limitations: no limitations Nursing Notes Reviewed: Yes Vital Signs Reviewed: Yes - History of Present Illness Pt Subjective Complaint: rapid heart beat, "heart racing", "skipped beats", palpitations Onset (ago): week(s) (2) Duration: intermittent Severity: moderate Context: occurred during exertion Arrhythmia History: atrial fibrillation, history of electrical cardioversion Associated symptoms: Reports: chest pain, shortness of breath. Denies: near- syncope, nausea, vomiting Treatments prior to arrival: beta-jassi - Related Data Home Medications Medication Instructions Recorded Confirmed Albuterol Sulfate [Albuterol 2 puff IH Q6HR PRN 08/14/16 08/14/16 Inhaler] Aspirin [Lo-Dose Aspirin EC] 81 mg PO DAILY 08/14/16 08/14/16 Carvedilol [Coreg] 3.125 mg PO DAILY 08/14/16 08/14/16 Fluticasone/Salmeterol [Advair 1 puff IH Q12H 08/14/16 08/14/16 250-50 Diskus] Furosemide [Lasix] 40 mg PO DAILY 08/14/16 08/14/16 Multivitamin [One Daily Essential] 1 tab PO DAILY 08/14/16 08/14/16 Rivaroxaban [Xarelto] 20 mg PO DAILY 08/14/16 08/14/16 Sotalol HCl [Betapace] 160 mg PO BID 08/14/16 08/15/16 Spironolactone [Aldactone] 12.5 mg PO DAILY 08/14/16 08/14/16 Allergies Allergy/AdvReac Type Severity Reaction Status Date / Time lisinopril AdvReac Cough Verified 11/26/15 07:00 flu vaccine Allergy Vomiting Uncoded 11/26/15 07:00 All systems ED: reviewed and negative except as stated. Constitutional: Denies: fever Cardiovascular: Reports: chest pain, palpitations, dyspnea on exertion. Denies : edema, syncope Past Medical History - Past Medical History Source: patient, old records reviewed, nursing notes reviewed Medical history: Reports: atrial fibrillation, COPD, coronary artery disease, diabetes Psychiatric history: Reports: no psych history - Social History Smoking Status: Former smoker Smokeless Tobacco Status: No Alcohol use: Reports: occasionally Drug use: Reports: none Physical Exam - General Limitations: no limitations General appearance: alert, in no apparent distress - Head Head exam: atraumatic, normocephalic, normal inspection - Eye Eye exam: Present: normal appearance, PERRL, EOMI - Expanded Eye Exam Pupils: Left: reactive - ENT ENT exam: normal exam, normal oropharynx, mucous membranes moist - Expanded ENT Exam External ear exam: Present: normal external inspection Mouth exam: Present: normal external inspection Teeth exam: Present: normal inspection Throat exam: Present: normal inspection - Neck Neck exam: Present: normal inspection, full ROM, trachea midline - Chest Chest inspection: Present: normal inspection, symmetric chest wall rise - Respiratory Respiratory exam: Present: normal lung sounds bilaterally - Cardiovascular Cardiovascular exam: Present: tachycardia (103), irregular rhythm - Abdominal Exam Abdominal exam: Present: soft, Non-Tender. Absent: tenderness, distention, guarding, rebound, rigidity - Extremities Exam Extremities exam: Present: normal inspection, full ROM. Absent: tenderness, pedal edema - Expanded Upper Extremity Exam Shoulder exam: Present: normal inspection, full ROM Arm exam: Present: normal inspection, full ROM Elbow exam: Present: normal inspection, full ROM Forearm/Wrist exam: Present: normal inspection, full ROM Hand exam: Present: normal inspection, full ROM Vascular exam: Normal: capillary refill, radial pulse - Expanded Lower Extremity Exam Hip/Pelvis exam: Present: normal inspection, full ROM Upper leg exam: Present: normal inspection, full ROM Knee exam: Present: normal inspection, full ROM Lower leg exam: Present: normal inspection, full ROM Ankle exam: Present: normal inspection, full ROM Foot/toe exam: Present: normal inspection, full ROM Neurovascular/Tendon exam: Absent: motor deficit, sensory deficit, tendon deficit - Back Exam Back exam: Present: normal inspection, full ROM. Absent: tenderness - Neurological Exam Neurological exam: Present: alert, oriented X3 - Expanded Neurological Exam Patient oriented to: Present: person, place, time Coma Scale Eye Opening: Spontaneous Coma Scale Motor Response: Obeys Commands Coma Scale Verbal Response: Oriented Coma Scale Total: 15 - Psychiatric Psychiatric exam: Present: normal affect, normal mood - Skin Skin exam: Present: warm, dry, intact, normal color Course - Consultations Consultation #1: cardiology evaluated the patient ER they want admitted to the hospitalist service the plan is to stop the sotalol at amiodarone and possible cardiac ablation Time: 12:22 Vital Signs Temperature 98.1 F 08/30/16 10:02 Pulse Rate 111 08/30/16 10:02 Respiratory Rate 22 08/30/16 10:02 Blood Pressure 170/82 08/30/16 10:02 O2 Sat by Pulse Oximetry 98 08/30/16 10:02 Temperature 98.1 F 08/30/16 10:02 Pulse Rate 98 08/30/16 11:48 Respiratory Rate 18 08/30/16 11:48 Blood Pressure 130/96 08/30/16 11:48 O2 Sat by Pulse Oximetry 98 08/30/16 11:48 Oxygen Delivery Oxygen Delivery Room Air Arrhythmia/Palpitations - Differential Diagnosis Differential Diagnosis: Likely: palpitations, ventricular premature beats, supraventricular tachycardia, ventricular tachycardia, metabolic/electrolyte disturbance - Medical Records Medical records reviewed: Yes I reviewed the patient's medical records. - Lab Data Lab results reviewed: Yes I reviewed the patient's lab results. Result diagrams: 08/30/16 10:25 08/30/16 10:25 Lab Results 08/30/16 08/30/16 08/30/16 Range/Units 10:25 10:25 10:25 WBC 5.9 (4.3-11.1) K/mcL RBC 4.83 (4.19-5.50) M/mcL Hgb 15.2 (12.9-16.9) g/dL Hct 43.9 (37.5-50.1) % MCV 90.9 (83.0-100.0) fL MCH 31.5 (28.0-33.3) pg MCHC 34.6 (31.6-35.5) g/dL RDW 12.7 (11.5-14.5) % Plt Count 185 (140-400) K/mcL MPV 10.0 (9.4-12.4) fL Immature Gran % 0.2 (0-4) % Seg Neutrophils % 51.7 % Lymphocytes % 33.7 % Monocytes % 11.5 % Eosinophils % 2.2 % Basophils % 0.7 % Neutrophils # 3.0 (1.6-8.9) K/mcL Lymphocytes # 2.0 (0.6-4.6) K/mcL Monocytes # 0.7 (0.0-1.3) K/mcL Eosinophils # 0.1 (0.0-0.6) K/mcL Basophils # 0.0 (0.0-0.2) K/mcL PT 16.9 H (9.4-12.1) Seconds INR 1.5 APTT 35.3 (26.0-36.0) Seconds Sodium 137 (136-145) mEq/L Potassium 3.9 (3.5-4.5) mEq/L Chloride 102 (98-109) mEq/L Carbon Dioxide 26 (19-29) mEq/L BUN 18 (8-26) mg/dL Creatinine 1.08 (0.72-1.25) mg/dL Est GFR ( Amer) > 60 (> 60) Est GFR (Non-Af Amer) > 60 (> 60) BUN/Creatinine Ratio 17 (6-26) Glucose 140 H (70-99) mg/dL Calculated Osmolality 288 (280-300) Calcium 9.2 (8.6-10.8) mg/dL Magnesium 1.6 (1.6-2.6) mg/dL Troponin I (0-0.03) ng/mL TSH 1.777 (0.350-4.840) mcIU/mL 08/30/ Range/Units 10:25 WBC (4.3-11.1) K/mcL RBC (4.19-5.50) M/mcL Hgb (12.9-16.9) g/dL Hct (37.5-50.1) % MCV (83.0-100.0) fL MCH (28.0-33.3) pg MCHC (31.6-35.5) g/dL RDW (11.5-14.5) % Plt Count (140-400) K/mcL MPV (9.4-12.4) fL Immature Gran % (0-4) % Seg Neutrophils % % Lymphocytes % % Monocytes % % Eosinophils % % Basophils % % Neutrophils # (1.6-8.9) K/mcL Lymphocytes # (0.6-4.6) K/mcL Monocytes # (0.0-1.3) K/mcL Eosinophils # (0.0-0.6) K/mcL Basophils # (0.0-0.2) K/mcL PT (9.4-12.1) Seconds INR APTT (26.0-36.0) Seconds Sodium (136-145) mEq/L Potassium (3.5-4.5) mEq/L Chloride (98-109) mEq/L Carbon Dioxide (19-29) mEq/L BUN (8-26) mg/dL Creatinine (0.72-1.25) mg/dL Est GFR ( Amer) (> 60) Est GFR (Non-Af Amer) (> 60) BUN/Creatinine Ratio (6-26) Glucose (70-99) mg/dL Calculated Osmolality (280-300) Calcium (8.6-10.8) mg/dL Magnesium (1.6-2.6) mg/dL Troponin I 0.01 (0-0.03) ng/mL TSH (0.350-4.840) mcIU/mL - Radiology Data Radiology results reviewed: Yes I reviewed the patient's radiology results.
[2016-08-30 10:38] LABS: Basophils % 0.7 %; Eosinophils # 0.1 K/mcL (0.0-0.6); Eosinophils % 2.2 %; Hematocrit 43.9 % (37.5-50.1); Hemoglobin 15.2 g/dL (12.9-16.9); Immature Granulocytes % 0.2 % (0-4); Lymphocytes % 33.7 %; Mean Corpuscular HGB Conc 34.6 g/dL (31.6-35.5); Mean Corpuscular Hemoglobin 31.5 pg (28.0-33.3); Mean Corpuscular Volume 90.9 fL (83.0-100.0); Monocytes # 0.7 K/mcL (0.0-1.3); Monocytes % 11.5 %; Platelet Count 185 K/mcL (140-400); Red Blood Count 4.83 M/mcL (4.19-5.50); Red Cell Distribution Width 12.7 % (11.5-14.5); Segmented Neutrophils % 51.7 %
[2016-08-30 10:40] LABS: INR 1.5; Prothrombin Time 16.9 Seconds (9.4-12.1)
[2016-08-30 10:42] LABS: Activated Partial Thrombo Time 35.3 Seconds (26.0-36.0)
[2016-08-30 10:46] LABS: BUN/Creatinine Ratio 17 (6-26); Blood Urea Nitrogen 18 mg/dL (8-26); Calcium 9.2 mg/dL (8.6-10.8); Carbon Dioxide 26 mEq/L (19-29); Chloride 102 mEq/L (98-109); Glucose 140 mg/dL (70-99); Magnesium 1.6 mg/dL (1.6-2.6); Osmolality,Calculated 288 (280-300); Potassium 3.9 mEq/L (3.5-4.5); Sodium 137 mEq/L (136-145); eGFR For African Americans > 60 (> 60); eGFR For Non-African Americans > 60 (> 60)
[2016-08-30 11:08] LABS: Thyroid Stimulating Hormone 1.777 mcIU/mL (0.350-4.840)
[2016-08-30] MEDS ORDERED: 0.9 % Sodium Chloride 1,000 ML IVC ONE (11:17)
--- NOTE | 2016-08-30 12:41 | Cardiology Consult Note ---
Date of Encounter: 08/30/16 Time of Encounter: 11:30 Assessment and Plan (1) Atrial fibrillation with RVR Current Visit: Yes Status: Acute Per Cardiology: Patient with known history of paroxysmal atrial fibrillation previously managed past 4-5 years with sotalol 160 mg by mouth every 12 hours. Recent failed therapy with subsequent increased dose of Coreg and cardioversion within the past few weeks with successful conversion to sinus rhythm on second shock. Now with recurrent A. fib with RVR. Patient reviewed and discussed with Dr. Flores and EP consult completed with Dr. Benigno Soliz. Recommendations for admission and discontinuation sotalol. Once sotalol washout will proceed with by mouth amiodarone 200 mg by mouth twice a day most likely to be started Saturday. Continue with rate control strategy with beta jassi. Possible cardioversion if not rate controlled prior to discharge. TSH and mag stable. Troponin negative 1. (2) Nonischemic cardiomyopathy Current Visit: Yes Status: Acute Per Cardiology: Past history of nonischemic cardio myopathy suspected to be tachycardia induced. Had noted EF of 10% October 2011, 45-50% in 2012 and most recently 50-55% . Echo from last week showed EF down to 25%. Chest x-ray shows mild vascular congestion, patient with mild conversational dyspnea, with edema. We'll discontinue IV fluids and give IV Lasix 40 mg 1 now. Patient discussed and reviewed with Dr. Flores and Dr. Soliz, patient is symptomatically prior to recurrent A. fib and no further ischemic evaluation warranted at this time. (3) [facility] current use of antiarrhythmic drug Current Visit: Yes Status: Chronic Per Cardiology: Recommend admission and discontinuation of sotalol. Will allow for washout with intent to initiate amiodarone this weekend. (4) [facility] current use of anticoagulant Current Visit: Yes Status: Acute Per Cardiology: Patient remains on Xarelto 20 mg by mouth daily. Has not missed any doses. Kidney fxn stable. Denies any active bleeding or blood loss. If were to require DCCV, no [place] would be required. Medical records indicate hx of CVA, however patient denies. (5) SNEHA on CPAP Current Visit: Yes Status: Chronic Per Cardiology: Patient to have bring in home machine. Discussion w patient/family: The assessment and plan as outlined above was discussed with the patient who expressed understanding and agreement. All questions were answered. Thank you for involving us in the care of your patient. Please call with any questions. History of Present Illness Consult date: 08/30/16 Requesting physician: Roland Elkins Consult reason: Afib RVR Chief complaint: Fatigue, BRIGGS, "afib" History of present illness: Mr. Landa is a 61 year old male with relevant past medical history of paroxysmal atrial fibrillation on sotalol therapy and anticoagulated with serosal, history of nonischemic cardiomyopathy, checked sleep apnea with utilization of CPAP, and reported diet-controlled diabetes mellitus. Cardiology consult from ER today for recurrent A. fib with RVR. Patient reports since cardioversion about a week and a half to 2 weeks ago he did feel better for a few days. Unfortunately about one week ago he reports he "went back into A. fib "has been expressing increasing fatigue, dyspnea on exertion, and exertional chest tightness. He reports compliance with sotalol and recent increased dose of Coreg. Additional complaint with his relative denies any active bleeding or blood loss. Reports compliance with CPAP at home. He does report he drinks about 2-3 beers daily. Denies any recent fever, chills, nausea , vomiting, diarrhea, cough. Reports prior to the past few weeks had "been feeling great" and doing his normal activities. Also, prior to this event he denies any chest pain, dyspnea on exertion, or fatigue. Past Med Surg Social Fam HX - Past Medical History Attestation: Yes The following information was validated with the patient. Source: patient, old records reviewed Medical history: atrial fibrillation, COPD, coronary artery disease, diabetes Psychiatric history: no psych history - Social History Smoking Status: Former smoker Smokeless Tobacco Status: No Alcohol use: occasionally Drug use: none Medications and Allergies Albuterol Sulfate [Albuterol Inhaler] 2 puff IH Q6HR PRN 08/14/16 [History] Aspirin [Lo-Dose Aspirin EC] 81 mg PO DAILY 08/14/16 [History] Carvedilol [Coreg] 3.125 mg PO DAILY 08/14/16 [History] Fluticasone/Salmeterol [Advair 250-50 Diskus] 1 puff IH Q12H 08/14/16 [History] Furosemide [Lasix] 40 mg PO DAILY 08/14/16 [History] Multivitamin [One Daily Essential] 1 tab PO DAILY 08/14/16 [History] Rivaroxaban [Xarelto] 20 mg PO DAILY 08/14/16 [History] Sotalol HCl [Betapace] 160 mg PO BID 08/14/16 [History] Spironolactone [Aldactone] 12.5 mg PO DAILY 08/14/16 [History] Allergies lisinopril Adverse Reaction (Verified 11/26/15 07:00) Cough flu vaccine Allergy (Uncoded 11/26/15 07:00) Vomiting All Systems Review: A 10-system review of systems was performed and is negative for pertinent findings except as documented above in the HPI. - Constitutional Constitutional: fatigue - Cardiovascular Cardiovascular: as per HPI, chest pain with exertion, dyspnea on exertion, leg edema Physical Examination Vital Signs, Last 4 Hours Temp Pulse Resp BP Pulse Ox 08/30/16 11:48 98 18 130/96 98 08/30/16 11:35 115 22 127/71 98 08/30/16 10:41 98 08/30/16 10:12 111 22 170/82 98 08/30/16 10:02 98.1 F 111 22 170/82 98 General: Conversant, No Apparent Distress HEENT: Atraumatic, Normocephaly, Mucus Membranes Moist Neck: No JVD, Normal carotid pulses Cardiac: No Murmur, Other (Irregularly irregular) Lungs: Normal Breath Sounds, No Wheeze, Rales, Rhonchi, Other (Slightly diminished bases, mild conversational dyspnea noted) Neuro: Alert and responsive, No focal deficits noted Abdomen: Soft, Non-Tender, Other (Obese) Skin: No rashes noted on visualized skin, Other (lower extremities dusky colored ) Extremities: Normal Pulses, Other (+1 pitting edema to bilateral lower extremities) Results 08/30/16 10:25 08/30/16 10:25 Lab Results Laboratory Tests 08/30/16 08/30/16 08/30/16 10:25 10:25 10:25 Hgb 15.2 Hct 43.9 Plt Count 185 INR 1.5 Potassium 3.9 Creatinine 1.08 Est GFR (Non-Af Amer) > 60 Magnesium 1.6 Troponin I TSH 1.777 08/30/16 10:25 Hgb Hct Plt Count INR Potassium Creatinine Est GFR (Non-Af Amer) Magnesium Troponin I 0.01 TSH ITS Impressions Chest X-Ray 08/30/16 10:07 IMPRESSION: Cardiomegaly with mild pulmonary vascular congestion D/ / Estuardo Fuller MD / Estuardo Fuller MD Interpreting Provider: Estuardo Fuller MD Active Medications Sodium Chloride (0.9 % Sodium Chloride) 1,000 mls @ 150 mls/hr IVC .[id number] ONE Stop: 08/30/16 17:56 Last Admin: 08/30/16 11:32 Dose: 150 mls/hr - Imaging and Cardiology Echo: report reviewed Cardiac cath: report reviewed - EKG Interpretation EKG results cardiology: personally reviewed (afib rvr), other (Currently A. fib with RVR in the 90s to 100s) Consult Discharge Plan - Plan Referrals: Christopher Poole MD [Primary Care Provider] -
[2016-08-30] MEDS ORDERED: Furosemide 40 MG/4 ML VIAL IVP ONE (12:43)
--- NOTE | 2016-08-30 13:08 | Electrocardiograph Report ---
[address] [place], [place] [address] Test Date: 2016-08-30 Pat Name: Duran Landa Department: 105 Room: [facility] Gender: M Quality Assurance Supervisor: : 1955 Requested By: Roland Elkins Order Number: [id number] Reading MD: Gene Flores MD Measurements Intervals [place] Rate: 99 P: MT: 0 QRS: 0 QRSD: 89 T: 31 QT: 364 QTc: 420 Interpretive Statements ATRIAL FIBRILLATION Poor R wave progression Electronically Signed On 08-30-2016 13:07:15 EDT by Gene Flores MD
--- NOTE | 2016-08-30 13:09 | Cardiology Consult Note ---
Date of Encounter: 08/30/16 Time of Encounter: 13:05 Assessment and Plan (1) Atrial fibrillation with RVR Current Visit: Yes Status: Acute Per Electrophysiology: Known hx of PAF, managed past 4-5 years with sotalol 160 mg by mouth every 12 hours. Recent failed therapy with subsequent increased dose of Coreg and successful DCCV within the past 2 weeks. Now with recurrent A. fib with RVR. EP was consulted for recommendations. Reviewed and discussed with Dr. Benigno Soliz. Recommend discontinuation of sotalol. Allow Sotalol washout for 48 hours. Start amiodarone 200 mg PO BID on Saturday. Continue BB and will uptitrate as necessary. Possible DCCV during stay if not rate controlled prior to discharge. TSH and mag stable. Troponin negative 1. Pt anticoagulated on Xarelto with no missed doses in the past month. Will plan to follow-up with EP, Dr. Benigno Soliz as outpt to discuss A-Fib ablation. (2) Nonischemic cardiomyopathy Current Visit: Yes Status: Acute Per Electrophysiology: Hx of NICMP thought to be tachycardia induced. EF of 10% October 2011, then improved to 50-55%. Echo last week shows EF again reduced to 25%. CXR shows mild vascular congestion, patient with mild conversational dyspnea, with edema. Agree with D/Cing IV fluids and give IV Lasix 40 mg 1 now. Current CMP possible tachycardia induced with recurrence of A-Fib. Discussed with Dr. Benigno Soliz. No need for ischemic evaluation during this stay. Recheck echo as outpt to re-evaluate EF, then determine if further work-up is necessary. 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 Will allow for 48 hour washout with intent to initiate amiodarone 200mg BID on Saturday. Discussion w patient/family: The assessment and plan as outlined above was discussed with the patient and/or family members who expressed understanding and agreement. All questions were answered. Thank you for involving us in the care of your patient. Please call with any questions. I will discuss all the above with Dr. Benigno Soliz and make changes as necessary. History of Present Illness Consult date: 08/30/16 Requesting physician: Chico Mccarthy Consult reason: A-Fib Chief complaint: fatigue, dyspnea, chest tightness History of present illness: Mr. Landa is a 61 year old male with relevant PMH of PAF on sotalol and anticoagulated with xarelto, hx of NICMP that initially recovered with recent decrease in EF to 25%, SNEHA with CPAP, and reported diet-controlled diabetes mellitus. Electrophysiology consult from ER today for recurrent A. fib with RVR on Sotalol. Patient had a cardioversion approximately 2 weeks ago and felt better for a few days. One week ago he felt he went back into A. fib. He is symptomatic with increasing fatigue, dyspnea on exertion, and exertional chest tightness. He reports compliance with sotalol and recent increased dose of Coreg. Reports compliance with CPAP at home. He reports he drinking 2-3 beers daily. Reports prior to the past few weeks had been feeling great and doing his normal activities without any chest pain, dyspnea on exertion, or fatigue. Past Med Surg Social Fam HX - Past Medical History Medical history: atrial fibrillation, COPD, coronary artery disease, diabetes Psychiatric history: no psych history - Social History Smoking Status: Former smoker Smokeless Tobacco Status: No Alcohol use: occasionally Drug use: none Medications and Allergies Albuterol Sulfate [Albuterol Inhaler] 2 puff IH Q6HR PRN 08/14/16 [History] Aspirin [Lo-Dose Aspirin EC] 81 mg PO DAILY 08/14/16 [History] Carvedilol [Coreg] 3.125 mg PO BID 08/14/16 [History] Fluticasone/Salmeterol [Advair 250-50 Diskus] 1 puff IH Q12H 08/14/16 [History] Furosemide [Lasix] 40 mg PO DAILY 08/14/16 [History] Multivitamin [One Daily Essential] 1 tab PO DAILY 08/14/16 [History] Rivaroxaban [Xarelto] 20 mg PO DAILY 08/14/16 [History] Sotalol HCl [Betapace] 160 mg PO BID 08/14/16 [History] Spironolactone [Aldactone] 12.5 mg PO DAILY 08/14/16 [History] Allergies lisinopril Adverse Reaction (Verified 11/26/15 07:00) Cough flu vaccine Allergy (Uncoded 11/26/15 07:00) Vomiting All Systems Review: A 10-system review of systems was performed and is negative for pertinent findings except as documented above in the HPI. - Constitutional Constitutional: fatigue - Cardiovascular Cardiovascular: as per HPI, chest pain with exertion, dyspnea on exertion - Respiratory Respiratory: dyspnea Physical Examination Vital Signs Temp Pulse Resp BP Pulse Ox 08/30/16 11:48 98 18 130/96 98 08/30/16 11:35 115 22 127/71 98 08/30/16 10:41 98 08/30/16 10:12 111 22 170/82 98 08/30/16 10:02 98.1 F 111 22 170/82 98 Intake and Output 08/29/16 08/30/16 08/30/16 23:59 07:59 15:59 Other: Weight 156.489 kg Patient Weight 08/30/16 23:59 Weight 156.489 kg General: Conversant, No Apparent Distress HEENT: Atraumatic, Normocephaly, Mucus Membranes Moist Neck: No JVD, Normal carotid pulses Cardiac: Other (irregularly irregular) Lungs: Normal Breath Sounds, No Wheeze, Rales, Rhonchi Neuro: Alert and responsive, No focal deficits noted Abdomen: Soft, Non-Tender Skin: No rashes noted on visualized skin Musculoskeletal: No Chest Wall Tenderness Extremities: No Clubbing, No Cyanosis, Normal Pulses, Other (mild BLE edema noted) Results 08/30/16 10:25 08/30/16 10:25 Short CBC 08/30/16 Range/Units 10:25 WBC 5.9 (4.3-11.1) K/mcL Hgb 15.2 (12.9-16.9) g/dL Hct 43.9 (37.5-50.1) % Plt Count 185 (140-400) K/mcL Neutrophils # 3.0 (1.6-8.9) K/mcL BMP 08/30/16 Range/Units 10:25 Sodium 137 (136-145) mEq/L Potassium 3.9 (3.5-4.5) mEq/L Chloride 102 (98-109) mEq/L Carbon Dioxide 26 (19-29) mEq/L BUN 18 (8-26) mg/dL Creatinine 1.08 (0.72-1.25) mg/dL Glucose 140 H (70-99) mg/dL Calcium 9.2 (8.6-10.8) mg/dL Cardiac Enzymes 08/30/16 Range/Units 10:25 Troponin I 0.01 (0-0.03) ng/mL Impressions Chest X-Ray 08/30/16 10:07 IMPRESSION: Cardiomegaly with mild pulmonary vascular congestion D/ / Estuardo Fuller MD / Estuardo Fuller MD Interpreting Provider: Estuardo Fuller MD - Imaging and Cardiology Echo: report reviewed Cardiac cath: report reviewed - EKG Interpretation EKG results cardiology: personally reviewed Consult Discharge Plan - Plan Referrals: Christopher Poole MD [Primary Care Provider] -
--- NOTE | 2016-08-30 13:13 | Event Note ---
Date of Encounter: 08/30/16 Time of Encounter: 13:11 1. Recurrent A fib with RVR, unclear trigger, had ablation cardiology recomended to stop sotalol and start amiodarone continue Xarelto consider to repeat ablation 2. acute systolic CHF exacerbation due to A fib with RVR, EF 25% start Lasix 40 mg IV BID strict I's and O's daily weight 3) COPD not oxygen dep, stable 4) CAD Inpatient. Time spent 40 min
[2016-08-30] MEDS ORDERED: Naloxone 0.4 MG/ML INJ IVP PRN (13:21)
--- NOTE | 2016-08-30 13:48 | Internal Med History&Physical ---
<Seth Cross Roselyn - Last Filed: 08/30/16 14:19> Date of Encounter: 08/30/16 Time of Encounter: 12:30 Assessment and Plan (1) Atrial fibrillation with RVR Current visit: Yes Status: Acute Assess: Mr. Landa is a 61 year old male who presents from the ED with chief complaint of atrial fibrillation with RVR, palpitations, and shortness of breath with exertion. Patient also reports feeling of chest tightness with no radiation to arms or neck and no muscle weakness. Syeda was cardioverted assess fully on 08/14/16 but came out of rhythm within the past week. Patient has a history of atrial fibrillation. Plan: Continuous cardiac telemetry ordered Repeat EKG Cardiology consult ordered and confirmed Stop sotalol per cardiology Amiodarone to start on 09/01/16 per cardiology Continue Xarelto Consider repeat cardioversion (2) CHF (congestive heart failure) Current visit: Yes Status: Acute Assess: Patient presents with acute congestive heart failure related to A. fib with RVR and current EF of 25% Plan: Lasix 40 mg BID ordered Measure I&O Measure daily weight Monitor patient's vital signs Qualifiers: Congestive heart failure type: unspecified congestive heart failure type Congestive heart failure chronicity: unspecified congestive heart failure chronicity Qualified Code(s): I50.9 - Heart failure, unspecified (3) COPD (chronic obstructive pulmonary disease) Current visit: Yes Status: Chronic Assess: Patient presents with history of chronic obstructive pulmonary disease. Patient reports that 5 years ago he smoked 1-1/2 packs per day. Patient also currently reports SOB with exertion. Plan: O2 @ 2L with titration if SpO2 <92% Continue albuterol inhaler PRN Continue Symbicort Monitor SpO2 Monitor patient's vital signs Falls precautions due to patient's current status of SOB with exertion Bedrest with bathroom privileges Qualifiers: COPD type: unspecified COPD Qualified Code(s): J44.9 - Chronic obstructive pulmonary disease, unspecified (4) CAD (coronary artery disease) Current visit: Yes Status: Chronic Assess: Patient presents with history of coronary artery disease. Plan: Lipitor 40 mg daily ordered Continue low-dose aspirin therapy Continue Coreg Continue Xarelto Continue spironolactone Qualifiers: Coronary Disease-Associated Artery/Lesion type: unspecified vessel or lesion type [place]oi vs. transplanted heart: sun'aq heart Associated angina: without angina Qualified Code(s): I25.10 - Atherosclerotic heart disease of [place] coronary artery without angina pectoris (5) Hypertension Current visit: Yes Status: Chronic Assess: Patient presents with chronic history of hypertension. Plan: Continue spironolactone Qualifiers: Hypertension type: essential hypertension Qualified Code(s): I10 - Essential (primary) hypertension (6) DVT prophylaxis Current visit: Yes Status: Acute Assess: Patient to be continued on current Xarelto and low-dose aspirin therapy as DVT prophylaxis. Antiembolic stockings are contraindicated due to patient's current bilateral lower extremity and pedal edema edema. Internal Medicine - H&P: HPI Chief complaint: Afib with RVR/Palpitations Admitted From: Emergency Dept Plans for Post Hospital Care: Home History of present illness: Mr. Landa is a 61 year old male who presents from the ED with chief complaint of atrial fibrillation with RVR, palpitations, and shortness of breath with exertion. Patient also reports feeling of chest tightness with no radiation to arms or neck and no muscle weakness. Syeda was cardioverted assess fully on 08/14/16 but came out of rhythm within the past week. Patient has a history of atrial fibrillation, coronary artery disease, diabetes and COPD. Patient is also currently hyperlipidemic and morbidly obese. Patient states he was on amiodarone previously 5 years ago but this was discontinued. Recent denies syncope, falls, dizziness, generalized weakness, nausea, vomiting , and diarrhea. Patient reports she drank heavily 5 years ago included a case of beer a day and whiskey. Patient also reports he smoked one pack per day 5 years ago as well. Patient states he has reduced his alcohol use to 2 beers per day and no longer smokes cigarettes. Cardiology consult placed in the ED. I confirmed cardiology plan to stop sotalol and begin administration of amiodarone on Saturday09/01/16 cardiology CMP, Yassine Sanchez. Asians admitted inpatient status with continuous cardiac telemetry, repeat EKG, continuation of Coreg and Xarelto, trending troponins x2, illustration of supplemental O2, and SPO2 monitoring. Lipitor 40 mg daily ordered for current hyperlipidemia. DVT prophylaxis contraindicated due to continuation of Xarelto. Falls precautions with bed rest and bathroom privileges. Patient to be monitored closely. Past Med Surg Social Fam HX - Past Medical History Source: patient Medical history: atrial fibrillation, COPD, coronary artery disease, diabetes ( Patient is currently prediabetic status) Psychiatric history: no psych history - Past Surgical History Surgical History: orthopedic, other (Right shoulder, 3 skips on knees bilaterally, repair of right broken tibia with screws and rods, and bilateral knee replacement.) - Social History Smoking Status: Former smoker Packs per day: 1-1 1/2 PPD Smokeless Tobacco Status: No Alcohol use: occasionally (Patient reports drinking 2 beers per day currently.) , heavy (Patient reports drinking 1 case of beer daily and whiskey 5 years ago. He reports he now only drinks 2 beers per day.) Drug use: none Occupational status: employed Current living situation: Home, With Family Activity Level: Independent ambulation, Very active Recent Out of Country Travel Within the Last 8 Weeks: No Exposure or Possible Exposure to Illness During Travel: No - Family History Mother Race: Family Member Ethnicity: Non- Living Status: Age at : 78 Cause of : Complications from Hep C Father Race: Family Member Ethnicity: Non- Living Status: Cause of : Unknown Brother Race: Family Member Ethnicity: Non- Living Status: Still Living Hx Family Medical Disorders: No Sister Race: Family Member Ethnicity: Non- Living Status: Still Living Hx Family Cardiac Disorders: Yes (BP, Hyperlipidemia) Internal Medicine - H&P: Meds Albuterol Sulfate [Albuterol Inhaler] 2 puff IH Q6HR PRN 08/14/16 [History] Aspirin [Lo-Dose Aspirin EC] 81 mg PO DAILY 08/14/16 [History] Carvedilol [Coreg] 3.125 mg PO BID 08/14/16 [History] Fluticasone/Salmeterol [Advair 250-50 Diskus] 1 puff IH Q12H 08/14/16 [History] Furosemide [Lasix] 40 mg PO DAILY 08/14/16 [History] Multivitamin [One Daily Essential] 1 tab PO DAILY 08/14/16 [History] Rivaroxaban [Xarelto] 20 mg PO DAILY 08/14/16 [History] Sotalol HCl [Betapace] 160 mg PO BID 08/14/16 [History] Spironolactone [Aldactone] 12.5 mg PO DAILY 08/14/16 [History] Allergies lisinopril Adverse Reaction (Verified 11/26/15 07:00) Cough flu vaccine Allergy (Uncoded 11/26/15 07:00) Vomiting All Systems PM: A 10-system review of systems was performed and is negative for pertinent findings except as documented above in the HPI. - Constitutional Constitutional: no chills, no fever(s), no night sweats - EENT Eyes: no change in vision, no discharge, no pain, no photophobia Ears: no ear discharge, no ear pain, no tinnitus Nose, mouth and throat: no dysphagia, no nasal discharge, no neck pain, no sore throat - Breasts Breasts: as per HPI - Cardiovascular Cardiovascular ROS IM: as per HPI, dyspnea, irregular heart rhythm, palpitations , no chest pain, no diaphoresis, no lightheadedness, no syncope - Respiratory Respiratory: wheezing, no cough, no dyspnea, no excessive phlegm production - Gastrointestinal Gastrointestinal: no abdominal pain, no diarrhea, no hematemesis, no hematochezia, no melena, no nausea, no vomiting - Genitourinary Genitourinary ROS male: as per HPI - Musculoskeletal Musculoskeletal ROS IM: no numbness, no tingling - Integumentary Integumentary IM: unusual bruising (Bruising present due to Xarelto), no rash - Neurological Neurological ROS: no confusion, no convulsions, no focal weakness, no numbness, no tingling, no tremor(s) - Psychiatric Psychiatric: as per HPI - Endocrine Endocrine IM: as per HPI - Hematologic/Lymphatic Hematologic/Lymphatic: easy bruising - Allergic/Immunologic Allergic/Immunologic: as per HPI - Constitutional Vitals: Temp Pulse Resp BP Pulse Ox 98.1 F 98 18 130/96 98 08/30/16 10:02 08/30/16 11:48 08/30/16 11:48 08/30/16 11:48 08/30/16 11:48 General appearance: Present: cooperative, A&O X 3, morbidly obese, pleasant, no acute distress, answers questions appropriately - Head Head exam: Present: atraumatic, normocephalic - Eye Eye exam: Present: PERRL, conjuntiva pink, sclera anicteric Pupils: Present: PERRL - ENT ENT exam: Present: normal exam, normal external ear exam - Neck Neck exam general surgery: Present: supple, trachea midline. Absent: lymphadenopathy - Respiratory Respiratory exam: Present: CTAB, wheezes (Mild expiratory wheezes noted bilaterally on auscultation). Absent: accessory muscle use, rales, rhonchi - Cardiovascular Cardiovascular exam: Present: irregular rhythm - GI/Abdominal GI/Abdominal exam: Present: normal bowel sounds, soft, no peritoneal signs. Absent: distended, tenderness - Rectal Rectal exam: Present: deferred - Additional comments: exam deferred. - Extremities Exam Extremities exam: Present: normal capillary refill, pedal edema (Bilaterally), warm, radial pulses palpable and symetrical. Absent: calf tenderness, cyanotic - Back Exam Back exam: Present: normal inspection - Neurological Exam Neurological exam: Present: CN II-XII intact, oriented X3, no focal deficits. Absent: pronater drift, facial droop, speech deficit - Psychiatric Psychiatric exam: Present: normal affect, normal mood - Skin Skin exam: Present: dry, intact Internal Med - H&P Results - Labs CBC & Chem 7: 08/30/16 10:25 08/30/16 10:25 - EKG Data Prior EKG available for review: yes When compared to previous EKG: there is no significant change EKG comments: 08/30/16 13:57 EKG dated 08/14/16 shows atrial fibrillation with rapid ventricular response. EKG dated shows atrial fibrillation - Diagnostic Studies Chest x-ray Additional comments: 1-View CXR chest dated 08/30/16 shows stable cardiomegaly. There appears to be mild pulmonary vascular congestion. No acute airspace disease. No pleural effusion. Overall impression: Cardiomegaly with mild pulmonary vascular congestion. - VTE Reasons for not Prescribing Prophylaxis: Not indicated-Anticoagulated or INR therapeutic <Hebert Parada H - Last Filed: 08/30/16 15:50> Date of Encounter: 08/30/16 Internal Medicine - H&P: HPI History of present illness: Mr. Landa is a 61 year old male All Systems PM: A 10-system review of systems was performed and is negative for pertinent findings except as documented above in the HPI. - Constitutional Vitals: Temp Pulse Resp BP Pulse Ox 98.3 F 100 20 126/110 95 08/30/16 15:46 08/30/16 15:46 08/30/16 15:46 08/30/16 15:46 08/30/16 15:46 Internal Med - H&P Results - Labs CBC & Chem 7: 08/30/16 10:25 08/30/16 10:25 Labs: Cardiac Enzymes 08/30/16 Range/Units 13:41 Troponin I 0.01 (0-0.03) ng/mL - Attending Attestation 1. Recurrent A fib with RVR, unclear trigger, had ablation cardiology recomended to stop sotalol and start amiodarone continue Xarelto consider to repeat ablation 2. acute systolic CHF exacerbation due to A fib with RVR, EF 25% start Lasix 40 mg IV BID strict I's and O's daily weight 3) COPD not oxygen dep, stable 4) CAD Inpatient. Time spent 40 min I examined this patient and my medical decision-making was reviewed with the INTERNAL CONTROL CONSULTANT/PA/Advanced Practice Nurse/Resident Physician. I agree with the documented findings, disposition and treatment plan as described except to the extent set forth below.
[2016-08-30] MEDS ORDERED: Ibuprofen 400 MG TABLET PO PRN (14:09)
[2016-08-30] MEDS ORDERED: *HR* Morphine 2 MG/ML SYRINGE IVP PRN (14:09)
[2016-08-30] MEDS ORDERED: *HR* HYDROcodone/Acet 5/325 mg TABLET PO PRN (14:09)
[2016-08-30] MEDS: Budesonide/Formoterol 80/4.5 MDI IH SCH ×2 (15:46→21:28)
[2016-08-30] MEDS: Furosemide 40 MG TABLET PO SCH (17:51)
[2016-08-31 04:14] LABS: Basophils % 0.6 %; Eosinophils # 0.2 K/mcL (0.0-0.6); Eosinophils % 3.8 %; Hematocrit 42.9 % (37.5-50.1); Hemoglobin 14.4 g/dL (12.9-16.9); Immature Granulocytes % 0.5 % (0-4); Mean Corpuscular HGB Conc 33.6 g/dL (31.6-35.5); Mean Corpuscular Volume 92.3 fL (83.0-100.0); Monocytes # 0.8 K/mcL (0.0-1.3); Neutrophils # 3.3 K/mcL (1.6-8.9); Platelet Count 164 K/mcL (140-400); Red Blood Count 4.65 M/mcL (4.19-5.50); Red Cell Distribution Width 12.8 % (11.5-14.5); Segmented Neutrophils % 51.1 %
[2016-08-31 04:29] LABS: Alanine Aminotransferase 30 Units/L (0-55); Albumin 3.4 g/dL (3.5-5.0); Albumin/Globulin Ratio 1.2 (1.1-2.2); Alkaline Phosphatase 72 Units/L (38-126); Aspartate Amino Transferase 25 Units/L (5-34); BUN/Creatinine Ratio 15 (6-26); Bilirubin,Total 0.8 mg/dL (0.2-1.2); Blood Urea Nitrogen 16 mg/dL (8-26); Calcium 8.7 mg/dL (8.6-10.8); Carbon Dioxide 24 mEq/L (19-29); Chloride 102 mEq/L (98-109); Globulin 2.9 g/dL (2.4-3.5); Glucose 125 mg/dL (70-99); Magnesium 1.6 mg/dL (1.6-2.6); Osmolality,Calculated 287 (280-300); Potassium 3.9 mEq/L (3.5-4.5); Sodium 137 mEq/L (136-145); Total Protein 6.3 g/dL (6.0-8.3); eGFR For African Americans > 60 (> 60); eGFR For Non-African Americans > 60 (> 60)
[2016-08-31] MEDS: Budesonide/Formoterol 80/4.5 MDI IH SCH ×2 (07:59→20:27)
--- NOTE | 2016-08-31 08:22 | Cardiology Progress Note ---
Date of Encounter: 08/31/16 Time of Encounter: 08:30 Assessment and Plan (1) Atrial fibrillation with RVR Current Visit: Yes Status: Acute Per Electrophysiology: Known hx of PAF, managed past 4-5 years with sotalol 160 mg by mouth every 12 hours. Recent failed therapy with subsequent increased dose of Coreg and successful DCCV within the past 2 weeks. Now with recurrent A. fib with RVR. EP consult appreciated-- off sotalol. Allow Sotalol washout for 48 hours. Start amiodarone 200 mg PO BID on Saturday. Continue BB and will uptitrate as necessary-- average heart rate on telemetry as 24 hours 128, currently A. fib at 126. Will discontinue Coreg and start Toprol-XL 25 mg by mouth daily. Systolic blood pressures in the 100s to 110s. Will discontinue Aldactone to allow for blood pressure room for titration of beta jassi. Recommend avoid calcium channel jassi with low EF. Possible DCCV during stay if not rate controlled prior to discharge. TSH and mag stable. Troponin negative 1. Pt anticoagulated on Xarelto with no missed doses in the past month. Will plan to follow-up with EP, Dr. Benigno Soliz as outpt to discuss A-Fib ablation. (2) Nonischemic cardiomyopathy Current Visit: Yes Status: Acute Per Cardiology: Hx of NICMP thought to be tachycardia induced. EF of 10% October 2011, then improved to 50-55%. Echo last week shows EF again reduced to 25. CXR shows mild vascular congestion, patient with mild conversational dyspnea, with edema. On Lasix 40mg PO BID. Net negative 2550ml. Suspect mild systolic HF contributing to RVR. Current CMP possible tachycardia induced with recurrence of A-Fib. Discussed with Dr. Benigno Soliz/Dr. Flores. No need for ischemic evaluation during this stay. Re-check echo as outpt to re-evaluate EF, then determine if further work-up is necessary. (3) long-term current use of antiarrhythmic drug Current Visit: Yes Status: Chronic Per Cardiology: Sotalol off. Will allow for 48 hour washout with intent to initiate amiodarone 200mg BID on Saturday. 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 Has not missed any doses. Kidney fxn stable. Denies any active bleeding or blood loss. If were to require DCCV, no [place] would be required. Medical records indicate hx of CVA, however patient denies. (5) SNEHA on CPAP Current Visit: Yes Status: Chronic Per Cardiology: Patient utilizing home machine. Discussion w patient/family: The assessment and plan as outlined above was discussed with the patient who expressed understanding and agreement. All questions were answered. Thank you for involving us in the care of your patient. Please call with any questions. Subjective Principal diagnosis: Afib RVR Interval history: Patient denies any chest pain. Reports shortness of breath at rest slightly improved. Denies any current palpitations. Denies any concerns or complaints. Reports thoughts well throughout the night. Objective Vital Signs, Last 4 Hours Pulse Resp BP Pulse Ox 08/31/16 07:00 118 19 113/88 95 General: Conversant, No Apparent Distress HEENT: Atraumatic, Normocephaly Cardiac: No Murmur, Other (Irregularly irregular) Lungs: Normal Breath Sounds, No Wheeze, Rales, Rhonchi Neuro: Alert and responsive, No focal deficits noted Skin: No rashes noted on visualized skin Extremities: Other (+1 nonpitting bilateral lower extremity right greater than left edema) Results 08/31/16 03:52 08/31/16 03:52 Lab Results Laboratory Tests 08/31/16 03:52 Creatinine 1.06 Est GFR (Non-Af Amer) > 60 Impressions Chest X-Ray 08/30/16 10:07 IMPRESSION: Cardiomegaly with mild pulmonary vascular congestion D/ / Estuardo Fuller MD / Estuardo Fuller MD Interpreting Provider: Estuardo Fuller MD Active Medications Acetaminophen/Hydrocodone Bitart ([place] 5-325 Mg) 1 tab PO Q4HR PRN PRN Reason: Moderate Pain (4-6) Stop: 03/01/17 14:10 Albuterol Sulfate (Albuterol Inhaler) 2 puff IH Q6HR PRN PRN Reason: Shortness Of Breath Stop: 03/01/17 13:37 Aspirin (Aspirin Ec) 81 mg PO DAILY [facility] Stop: 03/02/17 09:01 Atorvastatin Calcium (Lipitor) 40 mg PO HS [facility] Stop: 03/01/17 21:01 Last Admin: 08/30/16 20:02 Dose: 40 mg Budesonide/Formoterol Fumarate (Symbicort) 2 puff IH [id number] [facility]AI Stop: 03/01/17 13:46 Last Admin: 08/31/16 07:59 Dose: 2 puff Furosemide (Lasix) 40 mg PO BIDDIURETIC [facility]AI Stop: 03/01/17 17:01 Last Admin: 08/30/16 17:51 Dose: 40 mg Ibuprofen (Motrin) 400 mg PO Q6HR PRN PRN Reason: Mild Pain (1-3) Stop: 03/01/17 14:10 Metoprolol Succinate (Toprol Xl) 25 mg PO DAILY [facility] Stop: 03/02/17 09:01 Morphine Sulfate (Morphine Sulfate) 2 mg IVP Q4HR PRN PRN Reason: Severe Pain (7-10) Stop: 03/01/17 14:10 Multivitamins/Calcium (Thera M Plus) 1 tab PO DAILY [facility] Stop: 03/02/17 09:01 Naloxone HCl (Narcan) 0.4 mg IVP Q2MIN PRN PRN Reason: Opioid Reversal Stop: 03/01/17 13:22 Rivaroxaban (Xarelto) 20 mg PO DAILY [facility] Stop: 03/02/17 09:01 - Imaging and Cardiology Chest Xray: report reviewed - EKG Interpretation EKG results cardiology: other (24-hour time she reviewed with average heart rate 128, atrial fibrillation, currently A. fib in the 120s on telemetry) - VTE Reasons for not Prescribing Prophylaxis: Not indicated-Anticoagulated or INR therapeutic Consult Discharge Plan - Plan Referrals: Christopher Poole MD [Primary Care Provider] -
[2016-08-31] MEDS ORDERED: Metoprolol XL (24 HR) Succ 25 MG TAB.ER.24H PO SCH (09:00)
[2016-08-31] MEDS ORDERED: Spironolactone 25 MG TABLET PO SCH (09:00)
[2016-08-31] MEDS: *HR* Rivaroxaban 10 MG TABLET PO SCH (09:51)
[2016-08-31] MEDS: Aspirin Enteric Coated 81 MG Tablet PO SCH (09:51)
[2016-08-31] MEDS: Multivit/Ca/Min/Fe/FA 1 TAB TABLET PO SCH (09:51)
[2016-08-31] MEDS: Furosemide 40 MG TABLET PO SCH ×2 (09:51→16:12)
--- NOTE | 2016-08-31 13:15 | Internal Med Progress Note ---
<Bennett Skaggs P - Last Filed: 08/31/16 13:40> Date of Encounter: 08/31/16 - Constitutional Vitals: Temp Pulse Resp BP Pulse Ox 98.1 F 91 19 113/100 95 08/31/16 03:53 08/31/16 12:45 08/31/16 07:00 08/31/16 12:45 08/31/16 07:00 Internal Medicine: Result - Labs CBC & Chem 7: 08/31/16 03:52 08/31/16 03:52 Labs: Short CBC 08/31/16 Range/Units 03:52 WBC 6.4 (4.3-11.1) K/mcL Hgb 14.4 (12.9-16.9) g/dL Hct 42.9 (37.5-50.1) % Plt Count 164 (140-400) K/mcL Neutrophils # 3.3 (1.6-8.9) K/mcL BMP 08/31/16 03:52 Sodium 137 Potassium 3.9 Chloride 102 Carbon Dioxide 24 BUN 16 Creatinine 1.06 Glucose 125 H Calcium 8.7 Cardiac Enzymes 08/30/16 08/30/16 Range/Units 13:41 19:38 Troponin I 0.01 0.00 (0-0.03) ng/mL Liver Function 08/31/16 Range/Units 03:52 Total Bilirubin 0.8 (0.2-1.2) mg/dL AST 25 (5-34) Units/L ALT 30 (0-55) Units/L Alkaline Phosphatase 72 (38-126) Units/L Albumin 3.4 L (3.5-5.0) g/dL - ABG Interpretation ABG results: PT/INR, D-dimer PT 16.9 Seconds (9.4-12.1) H 08/30/16 10:25 Consult Discharge Plan - Plan Referrals: Christopher Poole MD [Primary Care Provider] - - Attending Attestation I examined this patient and my medical decision-making was reviewed with the BODYWORK THERAPIST/PA/Advanced Practice Nurse/Resident Physician. I agree with the documented findings, disposition and treatment plan as described except to the extent set forth below. <Bahman Albrecht - Last Filed: 08/31/16 16:43> Date of Encounter: 08/31/16 Time of Encounter: 10:00 - Assessment and plan (1) Atrial fibrillation with RVR Current Visit: Yes Status: Acute Assessment and plan: - Still in A-fib at rate as high as 130s this morning. - Patient was on sotalol for past 4-5 years but recently hospitalized 2 weeks ago for A-fib RVR. Patient had successful cardioversion on 08/14/16 but back to A- fib again within a week after discharge. - Cardiology on board and plans to start amiodarone 200 mg PO BID on Saturday ( after 48-hour sotalol washout). - Continue Toprol XL. - Continue to monitor with telemetry. (2) Nonischemic cardiomyopathy Current Visit: Yes Status: Acute Assessment and plan: - History of nonischemic cardiomyopathy likely tachycardia-induced. - LVEF was 10% in October 2011, then improved to 50-55% but latest echo on 08/14/16 showed LVEF 25%. - CXR on admission shows mild vascular congestion. - Continue diuresis with Lasix. Net negative 2.3 L since admission. - Strict I/O, daily weigh, fluid restriction. - Continue to monitor. (3) COPD (chronic obstructive pulmonary disease) Current Visit: Yes Status: Chronic Assessment and plan: - Continue bronchodilators and Symbicort. Qualifiers: COPD type: unspecified COPD Qualified Code(s): J44.9 - Chronic obstructive pulmonary disease, unspecified (4) SNEHA on CPAP Current Visit: Yes Status: Chronic Assessment and plan: - Continue CPAP use at night or sleep during patient's hospital stay. (5) Hypertension Current Visit: Yes Status: Chronic Assessment and plan: - BP within normal range. - Continue current antihypertensive regimen. Qualifiers: Hypertension type: essential hypertension Qualified Code(s): I10 - Essential (primary) hypertension - Subjective Interval history: No significant event noted overnight. Patient was seen and examined this morning. Patient reports his symptoms are only exertion with shortness of breath , racing heart and chest tightness on exertion. Patient denies syncope, fever, chills, nausea, vomiting, diarrhea. Patient is aware of cardiology's plan to switch him to Amiodarone. Patient is still in A-fib with rate as high as 130s per bedside monitor. - Constitutional Vitals: Temp Pulse Resp BP Pulse Ox 98.1 F 91 19 113/100 95 08/31/16 03:53 08/31/16 12:45 08/31/16 07:00 08/31/16 12:45 08/31/16 07:00 General appearance: Present: cooperative, A&O X 3, morbidly obese, pleasant, no acute distress, answers questions appropriately - Head Head exam: Present: atraumatic, normocephalic - Eye Eye exam: Present: EOMI, PERRL, conjuntiva pink, sclera anicteric - Neck Neck exam general surgery: Present: supple, trachea midline. Absent: lymphadenopathy - Respiratory Respiratory exam: Present: CTAB. Absent: accessory muscle use, rales, rhonchi, wheezes - Cardiovascular Cardiovascular exam: Present: irregular rhythm, +S1, +S2, tachycardia. Absent: diastolic murmur, gallop, rubs, systolic murmur - GI/Abdominal GI/Abdominal exam: Present: normal bowel sounds, soft, no peritoneal signs. Absent: distended, tenderness - Extremities Exam Extremities exam: Present: pedal edema (Mild to moderate), warm, radial pulses palpable and symetrical. Absent: calf tenderness, cyanotic - Neurological Exam Neurological exam: Present: CN II-XII intact, oriented X3, no focal deficits. Absent: pronater drift, facial droop, speech deficit - Skin Skin exam: Present: dry, intact, warm Internal Medicine: Result - Labs CBC & Chem 7: 08/31/16 03:52 08/31/16 03:52 Labs: Short CBC 08/31/16 Range/Units 03:52 WBC 6.4 (4.3-11.1) K/mcL Hgb 14.4 (12.9-16.9) g/dL Hct 42.9 (37.5-50.1) % Plt Count 164 (140-400) K/mcL Neutrophils # 3.3 (1.6-8.9) K/mcL BMP 08/31/16 03:52 Sodium 137 Potassium 3.9 Chloride 102 Carbon Dioxide 24 BUN 16 Creatinine 1.06 Glucose 125 H Calcium 8.7 Cardiac Enzymes 08/30/16 08/30/16 Range/Units 13:41 19:38 Troponin I 0.01 0.00 (0-0.03) ng/mL Liver Function 08/31/16 Range/Units 03:52 Total Bilirubin 0.8 (0.2-1.2) mg/dL AST 25 (5-34) Units/L ALT 30 (0-55) Units/L Alkaline Phosphatase 72 (38-126) Units/L Albumin 3.4 L (3.5-5.0) g/dL - ABG Interpretation ABG results: PT/INR, D-dimer PT 16.9 Seconds (9.4-12.1) H 08/30/16 10:25 - VTE Reasons for not Prescribing Prophylaxis: Not indicated-Anticoagulated or INR therapeutic
[2016-08-31] MEDS ORDERED: Metoprolol XL (24 HR) Succ 25 MG TAB.ER.24H PO ONE (13:40)
[2016-08-31] MEDS ORDERED: Acetaminophen 325 MG TABLET PO PRN (14:05)
[2016-09-01 04:55] LABS: BUN/Creatinine Ratio 23 (6-26); Blood Urea Nitrogen 22 mg/dL (8-26); Calcium 8.8 mg/dL (8.6-10.8); Carbon Dioxide 26 mEq/L (19-29); Chloride 101 mEq/L (98-109); Glucose 118 mg/dL (70-99); Osmolality,Calculated 288 (280-300); Potassium 3.6 mEq/L (3.5-4.5); Sodium 137 mEq/L (136-145); eGFR For African Americans > 60 (> 60); eGFR For Non-African Americans > 60 (> 60)
[2016-09-01] MEDS: Budesonide/Formoterol 80/4.5 MDI IH SCH ×2 (08:04→20:25)
[2016-09-01] MEDS: *HR* Rivaroxaban 10 MG TABLET PO SCH (08:28)
[2016-09-01] MEDS: Aspirin Enteric Coated 81 MG Tablet PO SCH (08:28)
[2016-09-01] MEDS: Metoprolol XL (24 HR) Succ 25 MG TAB.ER.24H PO SCH (08:28)
[2016-09-01] MEDS: Multivit/Ca/Min/Fe/FA 1 TAB TABLET PO SCH (08:28)
[2016-09-01] MEDS: Furosemide 40 MG TABLET PO SCH ×2 (08:28→16:56)
--- NOTE | 2016-09-01 10:35 | Cardiology Progress Note ---
Date of Encounter: 09/01/16 Time of Encounter: 08:45 Assessment and Plan (1) Atrial fibrillation with RVR Current Visit: Yes Status: Acute Per Cardiology: Known hx of PAF, managed past 4-5 years with sotalol 160 mg by mouth every 12 hours. Recent failed therapy with subsequent increased dose of Coreg and successful DCCV within the past 2 weeks. Now with recurrent A. fib with RVR. TSH and mag stable. Troponin negative 3. Off Sotalol. ECG today showed A. fib with RVR at 117, QT/QTC 316/386. Per previous discussion with EP, will initiate amiodarone 200 mg PO BID. On Toprol-XL 50 mg by mouth daily. Systolic blood pressure in the 90s to 100s. We'll titrate beta jassi if able. Recommend avoid calcium channel jassi with low EF. Possible DCCV during stay if not rate controlled prior to discharge. Will plan to follow-up with EP, Dr. Benigno Soliz as outpt to discuss A-Fib ablation once rate controlled. Pt anticoagulated on Xarelto with no missed doses in the past month. (2) Nonischemic cardiomyopathy Current Visit: Yes Status: Acute Per Cardiology: Hx of NICMP thought to be tachycardia induced. EF of 10% October 2011, then improved to 50-55%. Echo last week shows EF again reduced to 25. On Lasix 40mg PO BID. I&O net -2570ml. Suspect mild systolic HF contributing to RVR. Current CMP possible tachycardia induced with recurrence of A-Fib. Discussed with Dr. Benigno Soliz/Dr. Flores. No need for ischemic evaluation during this stay. Re- check echo as outpt to re-evaluate EF, then determine if further work-up is necessary. Consider adding ARB if able once afib rate controlled. 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 Will initiate amiodarone 200mg BID. (4) residential current use of anticoagulant Current Visit: Yes Status: Acute Per Cardiology: Patient remains on Xarelto 20 mg by mouth daily. Has not missed any doses. Kidney fxn stable. Denies any active bleeding or blood loss. If were to require DCCV, no [place] would be required. Medical records indicate hx of CVA, however patient denies. (5) SNEHA on CPAP Current Visit: Yes Status: Chronic Per Cardiology: Patient utilizing home machine. Discussion w patient/family: The assessment and plan as outlined above was discussed with the patient who expressed understanding and agreement. All questions were answered. Thank you for involving us in the care of your patient. Please call with any questions. Subjective Principal diagnosis: Afib RVR Interval history: Patient denies any chest pain. Reports shortness of breath at rest slightly improved. Denies any current palpitations. Denies any concerns or complaints. Reports slept well throughout the night. Objective Vital Signs, Last 4 Hours Temp Pulse Resp BP Pulse Ox 09/01/16 08:05 16 96 09/01/16 07:32 97.6 F 111 16 107/93 97 General: Conversant, No Apparent Distress HEENT: Atraumatic, Normocephaly, Mucus Membranes Moist Neck: No JVD, Normal carotid pulses Cardiac: No Murmur, Other (Irregularly irregular) Lungs: Normal Breath Sounds, No Wheeze, Rales, Rhonchi Neuro: Alert and responsive, No focal deficits noted Abdomen: Soft, Non-Tender Skin: No rashes noted on visualized skin Musculoskeletal: No Chest Wall Tenderness Extremities: Normal Pulses, Other (+1 nonpitting bilateral lower extremity) Results 08/31/16 03:52 09/01/16 03:39 Lab Results Laboratory Tests 08/30/16 08/30/16 08/30/16 10:25 13:41 19:38 Troponin I 0.01 0.01 0.00 Active Medications Acetaminophen (Tylenol) 650 mg PO Q6HR PRN PRN Reason: Mild Pain Stop: 03/02/17 14:06 Acetaminophen/Hydrocodone Bitart ([place] 5-325 Mg) 1 tab PO Q4HR PRN PRN Reason: Moderate Pain (4-6) Stop: 03/01/17 14:10 Albuterol Sulfate (Albuterol Inhaler) 2 puff IH Q6HR PRN PRN Reason: Shortness Of Breath Stop: 03/01/17 13:37 Amiodarone HCl (Cordarone) 200 mg PO BID SARAI Stop: 03/03/17 10:46 Aspirin (Aspirin Ec) 81 mg PO DAILY [facility]AI Stop: 03/02/17 09:01 Last Admin: 09/01/16 08:28 Dose: 81 mg Atorvastatin Calcium (Lipitor) 40 mg PO HS SARAI Stop: 03/01/17 21:01 Last Admin: 08/31/16 21:41 Dose: 40 mg Budesonide/Formoterol Fumarate (Symbicort) 2 puff IH [id number] SARAI Stop: 03/01/17 13:46 Last Admin: 09/01/16 08:04 Dose: 2 puff Furosemide (Lasix) 40 mg PO BIDDIURETIC SARAI Stop: 03/01/17 17:01 Last Admin: 09/01/16 08:28 Dose: 40 mg Metoprolol Succinate (Toprol Xl) 50 mg PO DAILY [facility] Stop: 03/03/17 09:01 Last Admin: 09/01/16 08:28 Dose: 50 mg Morphine Sulfate (Morphine Sulfate) 2 mg IVP Q4HR PRN PRN Reason: Severe Pain (7-10) Stop: 03/01/17 14:10 Multivitamins/Calcium (Thera M Plus) 1 tab PO DAILY [facility] Stop: 03/02/17 09:01 Last Admin: 09/01/16 08:28 Dose: 1 tab Naloxone HCl (Narcan) 0.4 mg IVP Q2MIN PRN PRN Reason: Opioid Reversal Stop: 03/01/17 13:22 Rivaroxaban (Xarelto) 20 mg PO DAILY [facility] Stop: 03/02/17 09:01 Last Admin: 09/01/16 08:28 Dose: 20 mg - EKG Interpretation EKG results cardiology: other (Telemetry reviewed with average heart rate 117 the past 12 hours, remains atrial fibrillation, currently A. fib in the 120s) - VTE Reasons for not Prescribing Prophylaxis: Not indicated-Anticoagulated or INR therapeutic Consult Discharge Plan - Plan Referrals: Christopher Poole MD [Primary Care Provider] -
--- NOTE | 2016-09-01 11:17 | Internal Med Progress Note ---
Date of Encounter: 09/01/16 Time of Encounter: 11:15 - Assessment and plan (1) Atrial fibrillation with RVR Current Visit: Yes Status: Acute Assessment and plan: - Still in A-fib at rate as high as 130s this morning. - Patient was on sotalol for past 4-5 years but recently hospitalized 2 weeks ago for A-fib RVR. Patient had successful cardioversion on 08/14/16 but back to A- fib again within a week after discharge. - Cardiology on board and plans to start amiodarone 200 mg PO BID on Saturday ( after 48-hour sotalol washout). - Continue Toprol XL. - Continue to monitor with telemetry. 09/01/2016 Noted that this morning heart rate is still in the 130s. Cardiology on board. Noted that plan is to start amiodarone today. We will follow the recommendation from cardiology. (2) Nonischemic cardiomyopathy Current Visit: Yes Status: Acute Assessment and plan: - History of nonischemic cardiomyopathy likely tachycardia-induced. - LVEF was 10% in October 2011, then improved to 50-55% but latest echo on 08/14/16 showed LVEF 25%. - CXR on admission shows mild vascular congestion. - Continue diuresis with Lasix. Net negative 2.3 L since admission. - Strict I/O, daily weigh, fluid restriction. - Continue to monitor. (3) COPD (chronic obstructive pulmonary disease) Current Visit: Yes Status: Chronic Assessment and plan: - Continue bronchodilators and Symbicort. Qualifiers: COPD type: unspecified COPD Qualified Code(s): J44.9 - Chronic obstructive pulmonary disease, unspecified (4) SNEHA on CPAP Current Visit: Yes Status: Chronic Assessment and plan: - Continue CPAP use at night or sleep during patient's hospital stay. - Subjective Interval history: Seen and examined. Chart reviewed. Patient is comfortably sitting up in a chair. Patient denies chest pain, shortness of breath, palpitation or any flutter sensation. - Constitutional Vitals: Temp Pulse Resp BP Pulse Ox 97.6 F 111 16 107/93 96 09/01/16 07:32 09/01/16 07:32 09/01/16 08:05 09/01/16 07:32 09/01/16 08:05 General appearance: Present: cooperative, A&O X 3, morbidly obese, pleasant, no acute distress, answers questions appropriately - Head Head exam: Present: atraumatic, normocephalic - Eye Eye exam: Present: PERRL, conjuntiva pink, sclera anicteric Pupils: Present: PERRL - Neck Neck exam general surgery: Present: supple, trachea midline. Absent: lymphadenopathy - Respiratory Respiratory exam: Present: CTAB. Absent: accessory muscle use, rales, rhonchi, wheezes - Cardiovascular Cardiovascular exam: Present: RRR, +S1, +S2. Absent: diastolic murmur, gallop, rubs, systolic murmur - GI/Abdominal GI/Abdominal exam: Present: normal bowel sounds, soft, no peritoneal signs. Absent: distended, tenderness - Extremities Exam Extremities exam: Present: warm, radial pulses palpable and symetrical. Absent : calf tenderness, cyanotic, pedal edema - Neurological Exam Neurological exam: Present: CN II-XII intact, oriented X3, no focal deficits. Absent: pronater drift, facial droop, speech deficit - Skin Skin exam: Present: dry, intact Internal Medicine: Result - Labs CBC & Chem 7: 08/31/16 03:52 09/01/16 03:39 Labs: BMP 09/01/16 03:39 Sodium 137 Potassium 3.6 Chloride 101 Carbon Dioxide 26 BUN 22 Creatinine 0.96 Glucose 118 H Calcium 8.8 - ABG Interpretation ABG results: PT/INR, D-dimer PT 16.9 Seconds (9.4-12.1) H 08/30/16 10:25 - VTE Reasons for not Prescribing Prophylaxis: Not indicated-Anticoagulated or INR therapeutic Consult Discharge Plan - Plan Referrals: Christopher Poole MD [Primary Care Provider] -
[2016-09-01] MEDS: *HR* Amiodarone 200 MG TABLET PO SCH ×2 (12:11→20:12)
[2016-09-02 05:39] LABS: Basophils % 0.6 %; Eosinophils # 0.2 K/mcL (0.0-0.6); Eosinophils % 3.4 %; Hematocrit 42.5 % (37.5-50.1); Hemoglobin 14.8 g/dL (12.9-16.9); Immature Granulocytes % 0.4 % (0-4); Immature Platelets 4.5 % (1.1-6.1); Lymphocytes # 2.2 K/mcL (0.6-4.6); Lymphocytes % 32.2 %; Mean Corpuscular HGB Conc 34.8 g/dL (31.6-35.5); Mean Corpuscular Hemoglobin 31.6 pg (28.0-33.3); Mean Corpuscular Volume 90.6 fL (83.0-100.0); Mean Platelet Volume 10.3 fL (9.4-12.4); Monocytes # 0.9 K/mcL (0.0-1.3); Monocytes % 12.8 %; Neutrophils # 3.4 K/mcL (1.6-8.9); Platelet Count 170 K/mcL (140-400); Red Blood Count 4.69 M/mcL (4.19-5.50); Red Cell Distribution Width 12.6 % (11.5-14.5); Segmented Neutrophils % 50.6 %
[2016-09-02 06:08] LABS: Alanine Aminotransferase 27 Units/L (0-55); Albumin 3.4 g/dL (3.5-5.0); Albumin/Globulin Ratio 1.1 (1.1-2.2); Alkaline Phosphatase 96 Units/L (38-126); Aspartate Amino Transferase 18 Units/L (5-34); BUN/Creatinine Ratio 19 (6-26); Bilirubin,Total 0.5 mg/dL (0.2-1.2); Blood Urea Nitrogen 21 mg/dL (8-26); Carbon Dioxide 27 mEq/L (19-29); Chloride 102 mEq/L (98-109); Glucose 126 mg/dL (70-99); Osmolality,Calculated 291 (280-300); Potassium 4.1 mEq/L (3.5-4.5); Sodium 138 mEq/L (136-145); Total Protein 6.4 g/dL (6.0-8.3); eGFR For African Americans > 60 (> 60); eGFR For Non-African Americans > 60 (> 60)
[2016-09-02] MEDS: Budesonide/Formoterol 80/4.5 MDI IH SCH ×2 (07:57→20:27)
--- NOTE | 2016-09-02 08:13 | Cardiology Progress Note ---
Date of Encounter: 09/02/16 Time of Encounter: 09:00 Assessment and Plan (1) Atrial fibrillation with RVR Current Visit: Yes Status: Acute Per Cardiology: Known hx of PAF, managed past 4-5 years with sotalol 160 mg by mouth every 12 hours. Recent failed therapy with subsequent increased dose of Coreg and successful DCCV within the past 2 weeks. Now with recurrent A. fib with RVR. TSH and mag stable. Troponin negative 3. Off Sotalol. ECG today showed A. fib with RVR. On amiodarone 200 mg PO BID and Toprol-XL 50 mg by mouth daily. Systolic blood pressure in the 90s to 100s. We'll titrate beta jassi if able. Recommend avoid calcium channel jassi with low EF. Possible DCCV tomorrow. Will plan to follow-up with EP, Dr. Benigno Soliz as outpt to discuss A-Fib ablation once rate controlled. Pt anticoagulated on Xarelto with no missed doses in the past month. (2) Nonischemic cardiomyopathy Current Visit: Yes Status: Acute Per Cardiology: Hx of NICMP thought to be tachycardia induced. EF of 10% October 2011, then improved to 50-55%. Echo last week shows EF again reduced to 25. On Lasix 40mg PO BID. I&O net -2420ml. Suspect mild systolic HF contributing to RVR. Current CMP possible tachycardia induced with recurrence of A-Fib. Discussed with Dr. Benigno Soliz/Dr. Flores. No need for ischemic evaluation during this stay. Re- check echo as outpt to re-evaluate EF, then determine if further work-up is necessary. Consider adding ARB if able once afib rate controlled. 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 Now on amiodarone 200mg BID. (4) group home current use of anticoagulant Current Visit: Yes Status: Acute Per Cardiology: Patient remains on Xarelto 20 mg by mouth daily. Has not missed any doses. Kidney fxn stable. Denies any active bleeding or blood loss. If were to require DCCV, no [place] would be required. Medical records indicate hx of CVA, however patient denies. (5) SNEHA on CPAP Current Visit: Yes Status: Chronic Per Cardiology: Patient utilizing home machine. Discussion w patient/family: The assessment and plan as outlined above was discussed with the patient who expressed understanding and agreement. All questions were answered. Thank you for involving us in the care of your patient. Please call with any questions. Subjective Principal diagnosis: Afib RVR Interval history: Patient denies any chest pain. Reports shortness of breath at rest slightly improved. Denies any current palpitations. Denies any concerns or complaints. Reports slept well throughout the night. Objective Vital Signs, Last 4 Hours Temp Pulse Resp BP Pulse Ox 09/02/16 07:23 97.8 F 117 15 107/95 98 09/02/16 05:23 97.9 F 18 103/90 98 General: Conversant, No Apparent Distress HEENT: Atraumatic, Normocephaly, Mucus Membranes Moist Cardiac: Reg Rate and Rhythm, Normal S1 and S2, No Murmur Lungs: Normal Breath Sounds, No Wheeze, Rales, Rhonchi Neuro: Alert and responsive, No focal deficits noted Skin: No rashes noted on visualized skin Musculoskeletal: No Chest Wall Tenderness Extremities: Normal Pulses, Other (trace nonpitting bilateral LE edema) Results 09/02/16 05:07 09/02/16 05:47 Lab Results Laboratory Tests 09/02/16 05:47 Creatinine 1.12 Est GFR (Non-Af Amer) > 60 Active Medications Acetaminophen (Tylenol) 650 mg PO Q6HR PRN PRN Reason: Mild Pain Stop: 03/02/17 14:06 Acetaminophen/Hydrocodone Bitart ([place] 5-325 Mg) 1 tab PO Q4HR PRN PRN Reason: Moderate Pain (4-6) Stop: 03/01/17 14:10 Albuterol Sulfate (Albuterol Inhaler) 2 puff IH Q6HR PRN PRN Reason: Shortness Of Breath Stop: 03/01/17 13:37 Amiodarone HCl (Cordarone) 200 mg PO BID [facility]AI Stop: 03/03/17 10:46 Last Admin: 09/02/16 08:54 Dose: 200 mg Aspirin (Aspirin Ec) 81 mg PO DAILY [facility] Stop: 03/02/17 09:01 Last Admin: 09/02/16 08:55 Dose: 81 mg Atorvastatin Calcium (Lipitor) 40 mg PO HS [facility] Stop: 03/01/17 21:01 Last Admin: 09/01/16 20:12 Dose: 40 mg Budesonide/Formoterol Fumarate (Symbicort) 2 puff IH [id number] SARAI Stop: 03/01/17 13:46 Last Admin: 09/02/16 07:57 Dose: 2 puff Furosemide (Lasix) 40 mg PO BIDDIURETIC SARAI Stop: 03/01/17 17:01 Last Admin: 09/02/16 08:54 Dose: 40 mg Metoprolol Succinate (Toprol Xl) 50 mg PO DAILY [facility] Stop: 03/03/17 09:01 Last Admin: 09/02/16 08:54 Dose: 50 mg Morphine Sulfate (Morphine Sulfate) 2 mg IVP Q4HR PRN PRN Reason: Severe Pain (7-10) Stop: 03/01/17 14:10 Multivitamins/Calcium (Thera M Plus) 1 tab PO DAILY [facility] Stop: 03/02/17 09:01 Last Admin: 09/02/16 08:54 Dose: 1 tab Naloxone HCl (Narcan) 0.4 mg IVP Q2MIN PRN PRN Reason: Opioid Reversal Stop: 03/01/17 13:22 Rivaroxaban (Xarelto) 20 mg PO DAILY [facility] Stop: 03/02/17 09:01 Last Admin: 09/02/16 08:54 Dose: 20 mg - EKG Interpretation EKG results cardiology: other (Telemetry reviewed with average heart rate past 12 hours 116, remains atrial fibrillation, currently A. fib in the 110s to 120s) - VTE Reasons for not Prescribing Prophylaxis: Not indicated-Anticoagulated or INR therapeutic Consult Discharge Plan - Plan Referrals: Christopher Poole MD [Primary Care Provider] -
[2016-09-02] MEDS: Furosemide 40 MG TABLET PO SCH ×2 (08:54→16:54)
[2016-09-02] MEDS: *HR* Amiodarone 200 MG TABLET PO SCH ×2 (08:54→20:55)
[2016-09-02] MEDS: Multivit/Ca/Min/Fe/FA 1 TAB TABLET PO SCH (08:54)
[2016-09-02] MEDS: Metoprolol XL (24 HR) Succ 25 MG TAB.ER.24H PO SCH (08:54)
[2016-09-02] MEDS: *HR* Rivaroxaban 10 MG TABLET PO SCH (08:54)
[2016-09-02] MEDS: Aspirin Enteric Coated 81 MG Tablet PO SCH (08:55)
--- NOTE | 2016-09-02 15:05 | Internal Med Progress Note ---
Date of Encounter: 09/02/16 Time of Encounter: 15:02 - Assessment and plan (1) Atrial fibrillation with RVR Current Visit: Yes Status: Acute Assessment and plan: - Still in A-fib at rate as high as 130s this morning. - Patient was on sotalol for past 4-5 years but recently hospitalized 2 weeks ago for A-fib RVR. Patient had successful cardioversion on 08/14/16 but back to A- fib again within a week after discharge. - Cardiology on board and plans to start amiodarone 200 mg PO BID on Saturday ( after 48-hour sotalol washout). - Continue Toprol XL. - Continue to monitor with telemetry. 09/01/2016 Noted that this morning heart rate is still in the 130s. Cardiology on board. Noted that plan is to start amiodarone today. We will follow the recommendation from cardiology. 09/02/2016 Heart rate still about 100 bpm. Noted from cardiology that patient is scheduled for possible cardioversion tomorrow. Nothing by mouth from midnight. (2) Nonischemic cardiomyopathy Current Visit: Yes Status: Acute Assessment and plan: - History of nonischemic cardiomyopathy likely tachycardia-induced. - LVEF was 10% in October 2011, then improved to 50-55% but latest echo on 08/14/16 showed LVEF 25%. - CXR on admission shows mild vascular congestion. - Continue diuresis with Lasix. Net negative 2.3 L since admission. - Strict I/O, daily weigh, fluid restriction. - Continue to monitor. (3) COPD (chronic obstructive pulmonary disease) Current Visit: Yes Status: Chronic Assessment and plan: - Continue bronchodilators and Symbicort. Qualifiers: COPD type: unspecified COPD Qualified Code(s): J44.9 - Chronic obstructive pulmonary disease, unspecified (4) SNEHA on CPAP Current Visit: Yes Status: Chronic Assessment and plan: - Continue CPAP use at night or sleep during patient's hospital stay. - Subjective Interval history: Seen and examined. Chart reviewed. Patient is comfortably sitting up in a chair. Patient denies chest pain, shortness of breath, palpitation or any flutter sensation. 09/02/2016 Seen and examined. Chart reviewed. Patient is comfortably sitting up in a chair. Patient's heart rate is still about 100 bpm. - Constitutional Vitals: Temp Pulse Resp BP Pulse Ox 98.2 F 103 15 121/104 97 09/02/16 11:24 09/02/16 11:24 09/02/16 11:24 09/02/16 11:24 09/02/16 11:24 General appearance: Present: cooperative, A&O X 3, morbidly obese, pleasant, no acute distress, answers questions appropriately - Head Head exam: Present: atraumatic, normocephalic - Eye Eye exam: Present: PERRL, conjuntiva pink, sclera anicteric Pupils: Present: PERRL - Neck Neck exam general surgery: Present: supple, trachea midline. Absent: lymphadenopathy - Respiratory Respiratory exam: Present: CTAB. Absent: accessory muscle use, rales, rhonchi, wheezes - Cardiovascular Cardiovascular exam: Present: RRR, +S1, +S2. Absent: diastolic murmur, gallop, rubs, systolic murmur - GI/Abdominal GI/Abdominal exam: Present: normal bowel sounds, soft, no peritoneal signs. Absent: distended, tenderness - Extremities Exam Extremities exam: Present: warm, radial pulses palpable and symetrical. Absent : calf tenderness, cyanotic, pedal edema - Neurological Exam Neurological exam: Present: CN II-XII intact, oriented X3, no focal deficits. Absent: pronater drift, facial droop, speech deficit - Skin Skin exam: Present: dry, intact Internal Medicine: Result - Labs CBC & Chem 7: 09/02/16 05:07 09/02/16 05:47 Labs: Short CBC 09/02/16 Range/Units 05:07 WBC 6.8 (4.3-11.1) K/mcL Hgb 14.8 (12.9-16.9) g/dL Hct 42.5 (37.5-50.1) % Plt Count 170 (140-400) K/mcL Neutrophils # 3.4 (1.6-8.9) K/mcL BMP 09/02/16 05:47 Sodium 138 Potassium 4.1 Chloride 102 Carbon Dioxide 27 BUN 21 Creatinine 1.12 Glucose 126 H Calcium 9.0 Liver Function 09/02/16 Range/Units 05:47 Total Bilirubin 0.5 (0.2-1.2) mg/dL AST 18 (5-34) Units/L ALT 27 (0-55) Units/L Alkaline Phosphatase 96 (38-126) Units/L Albumin 3.4 L (3.5-5.0) g/dL - ABG Interpretation ABG results: PT/INR, D-dimer PT 16.9 Seconds (9.4-12.1) H 08/30/16 10:25 - VTE Reasons for not Prescribing Prophylaxis: Not indicated-Anticoagulated or INR therapeutic Consult Discharge Plan - Plan Referrals: Christopher Poole MD [Primary Care Provider] -
[2016-09-03] MEDS ORDERED: *HR* FentaNYL (PF) 100 MCG/2 ML VIAL ONE (09:51)
[2016-09-03] MEDS ORDERED: *HR* Midazolam HCl 2 MG/2 ML VIAL ONE (09:53)
[2016-09-03] MEDS: Budesonide/Formoterol 80/4.5 MDI IH SCH (10:07)
--- NOTE | 2016-09-03 10:51 | Event Note ---
Date of Encounter: 09/03/16 Time of Encounter: 09:30 - Cardiology Event Note Remains A. fib with RVR on telemetry with current heart rate in the 110s to 120s and average heart rate the past 12 hours 118. Now on amiodarone 200 mg by mouth twice a day and Toprol-XL 50 mg by mouth daily. Systolic blood pressures 110's. Per discussion with Dr. Snider, plan for DC cardioversion today. Remains on Xarelto and has not missed any doses in the past 30 days. Patient is agreeable and all questions answered. Further recs after cardioversion. Possible DC to home later today.
[2016-09-03] MEDS: *HR* Rivaroxaban 10 MG TABLET PO SCH (10:52)
[2016-09-03] MEDS: *HR* Amiodarone 200 MG TABLET PO SCH (10:52)
[2016-09-03] MEDS ORDERED: 0.9 % Sodium Chloride 1,000 ML ONE (11:18)
--- NOTE | 2016-09-03 12:40 | Event Note ---
Date of Encounter: 09/03/16 Time of Encounter: 12:40 - Cardiology Event Note S/p DCCV with one shock of 250J with successful conversion to SR. Remains SR on tele in the 80's. Cardiology will s/o, re-consult PRN, f/u scheduled. All questions answered.
[2016-09-03] MEDS: Furosemide 40 MG TABLET PO SCH (13:31)
[2016-09-03] MEDS: Multivit/Ca/Min/Fe/FA 1 TAB TABLET PO SCH (13:31)
[2016-09-03] MEDS: Metoprolol XL (24 HR) Succ 25 MG TAB.ER.24H PO SCH (13:31)
[2016-09-03] MEDS: Aspirin Enteric Coated 81 MG Tablet PO SCH (13:31)
--- NOTE | 2016-09-03 14:35 | Internal Med Progress Note ---
Date of Encounter: 09/03/16 Time of Encounter: 14:00 - Assessment and plan (1) Atrial fibrillation with RVR Current Visit: Yes Status: Acute (2) Nonischemic cardiomyopathy Current Visit: Yes Status: Acute (3) COPD (chronic obstructive pulmonary disease) Current Visit: Yes Status: Chronic Qualifiers: COPD type: unspecified COPD Qualified Code(s): J44.9 - Chronic obstructive pulmonary disease, unspecified (4) SNEHA on CPAP Current Visit: Yes Status: Chronic (5) Hypertension Current Visit: Yes Status: Chronic Qualifiers: Hypertension type: essential hypertension Qualified Code(s): I10 - Essential (primary) hypertension - Subjective Interval history: No significant event noted overnight. Patient was seen and examined this morning. Patient reports his symptoms are only exertion with shortness of breath , racing heart and chest tightness on exertion. Patient denies syncope, fever, chills, nausea, vomiting, diarrhea. Patient is aware of cardiology's plan to switch him to Amiodarone. Patient is still in A-fib with rate as high as 130s per bedside monitor. - Constitutional Vitals: Temp Pulse Resp BP Pulse Ox 98.2 F 86 16 114/92 97 09/03/16 10:35 09/03/16 10:35 09/03/16 10:35 09/03/16 10:35 09/03/16 10:35 General appearance: Present: cooperative, A&O X 3, morbidly obese, pleasant, no acute distress, answers questions appropriately Internal Medicine: Result - Labs CBC & Chem 7: 09/02/16 05:07 09/02/16 05:47 - ABG Interpretation ABG results: PT/INR, D-dimer PT 16.9 Seconds (9.4-12.1) H 08/30/16 10:25 - VTE Reasons for not Prescribing Prophylaxis: Not indicated-Anticoagulated or INR therapeutic Consult Discharge Plan - Plan Referrals: Christopher Poole MD [Primary Care Provider] -
--- NOTE | 2016-09-03 15:20 | Discharge Summary ---
<Bahman Albrecht - Last Filed: 09/03/16 17:07> Date of Encounter: 09/03/16 Time of Encounter: 14:30 - Discharge Diagnosis (1) Atrial fibrillation with RVR Priority: Primary Status: Acute (2) Nonischemic cardiomyopathy Priority: Secondary Status: Acute (3) COPD (chronic obstructive pulmonary disease) Priority: Secondary Status: Chronic Qualifiers: COPD type: unspecified COPD Qualified Code(s): J44.9 - Chronic obstructive pulmonary disease, unspecified (4) SNEHA on CPAP Priority: Secondary Status: Chronic (5) Hypertension Priority: Secondary Status: Chronic Qualifiers: Hypertension type: essential hypertension Qualified Code(s): I10 - Essential (primary) hypertension - Discharge Medications Prescriptions: Amiodarone [Cordarone] 200 mg PO BID #60 tablet Atorvastatin [Lipitor] 40 mg PO HS #30 tablet Metoprolol XL (24 HR) Succ [Toprol Xl] 50 mg PO DAILY #30 tab.er.24h Home Medications: Albuterol Sulfate [Albuterol Inhaler] 2 puff IH Q6HR PRN 08/14/16 [History] Aspirin [Lo-Dose Aspirin EC] 81 mg PO DAILY 08/14/16 [History] Fluticasone/Salmeterol [Advair 250-50 Diskus] 1 puff IH Q12H 08/14/16 [History] Furosemide [Lasix] 40 mg PO DAILY 08/14/16 [History] Multivitamin [One Daily Essential] 1 tab PO DAILY 08/14/16 [History] Rivaroxaban [Xarelto] 20 mg PO DAILY 08/14/16 [History] Spironolactone [Aldactone] 12.5 mg PO DAILY 08/14/16 [History] Amiodarone [Cordarone] 200 mg PO BID #60 tablet 09/03/16 [Rx] Atorvastatin [Lipitor] 40 mg PO HS #30 tablet 09/03/16 [Rx] Metoprolol XL (24 HR) Succ [Toprol Xl] 50 mg PO DAILY #30 tab.er.24h 09/03/16 [ Rx] Allergies/Adverse Reactions: Allergies lisinopril Adverse Reaction (Verified 11/26/15 07:00) Cough flu vaccine Allergy (Uncoded 11/26/15 07:00) Vomiting Procedures/tests Complete & Pending: Procedures Performed prior 72 hours Category Date Time Status EV cardioversion Routine Y 09/03/16 11:42 Ordered Date of admission: 08/30/16 13:21 Primary care physician: Christopher Poole MD Consults: 08/31/16 08:15 Consult to Electrophysiology (EP) [CONS] Routine Consulting Provider: [facility] [place] Reason for Consult: afib RVR, antiarrhythmic therapy Call Completed: Yes Discharging clinician: Bahman Albrecht Anticipated date of discharge: 09/03/16 - Patient Status Disposition: Home, Self-Care Condition: Good Functional capacity at discharge: independent ambulation Overall status at discharge: patient is progressing back to baseline - Discharge Instructions Instructions: Metoprolol (By mouth), Amiodarone (By mouth), Atorvastatin (By mouth), Atrial Fibrillation (DC) Follow Up With: Benigno Soliz MD [Partnered Physician] - 09/05/16 10:00 am () Christopher Poole MD [Primary Care Provider] - (Within a week.) Forms: Inpatient Work/School Release Additional Instructions: Please be aware that your Coreg and Sotalol have been discontinued. Please take prescribed amiodarone 200 mg by mouth twice a day and Toprol XL 50 mg by mouth daily. You can go back to work on 09/10/16. Please follow up with Dr. Benigno Soliz of [place] [facility] at 10 (or 10:30) am on 09/05/16 Please follow up with your primary care physician Dr. Poole within a week regarding your hospitalization. - Diet and Activity Activity: increase activity as tolerated Diet: low fat, low cholesterol, low salt diet Hospital course: Mr. Landa is a 61 year old male with PMH of paroxysmal A-fib on sotalol and anticoagulated with Xarelto, history of NICMP that initially recovered with recent decrease in EF to 25%, SNEHA with CPAP, and reported diet-controlled diabetes mellitus. Patient had recently hospitalization for A-fib RVR and received successful cardioversion on 08/14/16. Patient noted to be back to A-fib one week after discharge from prior hospitalization. Patient presented to [place] ED with complaint of racing heart and dyspnea on exertion. Patient was noted to have A-fib RVR with heart rate as high as 130s and admitted on 08/30/16 for further management and closely monitoring with telemetry. Cardiology started patient on amiodarone 200 mg PO BID on 09/01 after 48-hour sotalol washout period. Patient was switched from Coreg to Toprol XL 50 mg PO daily. Patient was still in A-fib with HR as high as 120s after start of the medication change and eventually received cardioversion on 09/03/16, which successfully put patient back to sinus rhythm at rate of 80s-90s. Case was discussed with cardiology, given patient is back to sinus rhythm and remains hemodynamically stable, patient can be discharged home with current regimen of amiodarone and Toprol XL. Patient can go back to work on 09/10/16. Patient is instructed to follow up with Dr. Benigno Soliz of [place] [facility] at 10:30 am on 09/05/[address] Poole within a week regarding his hospitalization. - Time Spent with Patient Total time spent providing and/or coordinating discharge services: Greater than 30 minutes - Constitutional Vitals: Temp Pulse Resp BP Pulse Ox 98.2 F 86 16 114/92 97 09/03/16 10:35 09/03/16 10:35 09/03/16 10:35 09/03/16 10:35 09/03/16 10:35 General appearance: Present: cooperative, A&O X 3, morbidly obese, pleasant, no acute distress, answers questions appropriately - Head Head exam: Present: atraumatic, normocephalic - Eye Eye exam: Present: EOMI, PERRL, conjuntiva pink, sclera anicteric - Neck Neck exam general surgery: Present: supple, trachea midline. Absent: lymphadenopathy - Respiratory Respiratory exam: Present: CTAB. Absent: accessory muscle use, rales, rhonchi, wheezes - Cardiovascular Cardiovascular exam: Present: RRR, +S1, +S2. Absent: diastolic murmur, gallop, rubs, systolic murmur - GI/Abdominal GI/Abdominal exam: Present: normal bowel sounds, soft, no peritoneal signs. Absent: distended, tenderness - Extremities Exam Extremities exam: Present: pedal edema (Mild), warm, radial pulses palpable and symetrical. Absent: calf tenderness, cyanotic - Neurological Exam Neurological exam: Present: CN II-XII intact, oriented X3, no focal deficits. Absent: pronater drift, facial droop, speech deficit - Skin Skin exam: Present: dry, intact, warm - VTE Reasons for not Prescribing Prophylaxis: Not indicated-Anticoagulated or INR therapeutic <Bennett Skaggs P - Last Filed: 09/03/16 17:09> Date of Encounter: 09/03/16 - Discharge Diagnosis (1) Atrial fibrillation with RVR Status: Acute (2) Nonischemic cardiomyopathy Status: Acute (3) COPD (chronic obstructive pulmonary disease) Status: Chronic Qualifiers: COPD type: unspecified COPD Qualified Code(s): J44.9 - Chronic obstructive pulmonary disease, unspecified (4) SNEHA on CPAP Status: Chronic Procedures/tests Complete & Pending: Procedures Performed prior 72 hours Category Date Time Status EV cardioversion Routine Y 09/03/16 11:42 Ordered Date of admission: 08/30/16 13:21 Primary care physician: Christopher Poole MD Consults: 08/31/16 08:15 Consult to Electrophysiology (EP) [CONS] Routine Consulting Provider: [facility] [place] Reason for Consult: afib RVR, antiarrhythmic therapy Call Completed: Yes Hospital course: Mr. Landa is a 61 year old male - Time Spent with Patient Total time spent providing and/or coordinating discharge services: - Constitutional Vitals: Temp Pulse Resp BP Pulse Ox 98.2 F 137 22 122/108 95 09/03/16 10:35 09/03/16 11:10 09/03/16 11:10 09/03/16 11:10 09/03/16 11:10 - Attending Attestation I examined this patient and my medical decision-making was reviewed with the HIDE SPREADER/PA/Advanced Practice Nurse/Resident Physician. I agree with the documented findings, disposition and treatment plan as described except to the extent set forth below.
[2016-09-03 16:24] VITALS: BP 122/108
--- NOTE | 2016-09-04 09:05 | Event Note ---
Date of Encounter: 09/03/16 (Late Entry) Time of Encounter: 12:00 - Cardiology Event Note CARDIOVERSION PROCEDURE: Patient procedure planned to be done in his room due to [facility] and staffing. R/B/A of procedure were discussed with the patient. Patient consented to proceed. Patient admitted compliance with xarelto for at least 30 days. After adequate sedation, patient underwent DCCV utilizing pad placement in the AP approach. DCCV was successful in judaism of normal sinus rhythm from atrial fibrillation after 1 attempt utilizing 250J. Patient able to move all 4 extremities post procedure. No patient complications. Final rhythm was NS at HR 70-80's.
--- NOTE | 2016-09-04 17:12 | Electrocardiograph Report ---
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
--- NOTE | 2016-09-04 17:36 | Electrocardiograph Report ---
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
--- NOTE | 2016-09-04 18:16 | Electrocardiograph Report ---
[address] [address] Test Date: 2016-09-03 Pat Name: Duran Landa Department: 111 Room: [facility] Gender: M Data [employer] Manager: SHE : 1955 Requested By: Bennett Skaggs Order Number: [id number] Reading MD: Rosa Soliz Measurements Intervals [place] Rate: 87 P: 21 MI: 188 QRS: -3 QRSD: 96 T: 53 QT: 391 QTc: 435 Interpretive Statements SINUS RHYTHM NONSPECIFIC T-WAVE ABNORMALITY Electronically Signed On 09-04-2016 18:14:55 EDT by Rosa Soliz
== END 2016-09-03 15:47 | disposition home or self-care (01) | DRG 308 ==
LOC: EMEROO 09:59 → 2NENU 09:59
PROVIDERS: ADMIT Internal Medicine; ATTEND Internal Medicine

== ENCOUNTER 2016-09-29 17:28 | Inpatient (IN) ==
[2016-09-29] MEDS ORDERED: Nitroglycerin 0.4 MG TAB.SUBL SL PRN (18:02)
[2016-09-29] MEDS ORDERED: Furosemide 40 MG/4 ML VIAL IVP ONE (18:03)
[2016-09-29] MEDS ORDERED: *HR* Metoprolol 5 MG/5 ML VIAL IVP SCH (18:15)
[2016-09-29 18:20] LABS: Basophils # 0.1 K/mcL (0.0-0.2); Basophils % 0.9 %; Eosinophils # 0.1 K/mcL (0.0-0.6); Eosinophils % 1.4 %; Hematocrit 42.6 % (37.5-50.1); Hemoglobin 14.6 g/dL (12.9-16.9); Immature Granulocytes % 0.3 % (0-4); Lymphocytes # 2.2 K/mcL (0.6-4.6); Lymphocytes % 31.3 %; Mean Corpuscular HGB Conc 34.3 g/dL (31.6-35.5); Mean Corpuscular Volume 90.4 fL (83.0-100.0); Mean Platelet Volume 10.4 fL (9.4-12.4); Monocytes # 0.8 K/mcL (0.0-1.3); Monocytes % 11.3 %; Neutrophils # 3.8 K/mcL (1.6-8.9); Platelet Count 188 K/mcL (140-400); Red Blood Count 4.71 M/mcL (4.19-5.50); Segmented Neutrophils % 54.8 %
[2016-09-29 18:26] LABS: INR 1.7; Prothrombin Time 18.5 Seconds (9.4-12.1)
[2016-09-29 18:29] LABS: Activated Partial Thrombo Time 35.1 Seconds (26.0-36.0)
[2016-09-29] MEDS ORDERED: Nitroglycerin 0.4 MG TAB.SUBL SL ONE (18:33)
[2016-09-29] MEDS ORDERED: *HR* Metoprolol 5 MG/5 ML VIAL IVP ONE (18:33)
[2016-09-29] MEDS ORDERED: Furosemide 40 MG/4 ML VIAL ONE (18:33)
--- NOTE | 2016-09-29 18:34 | Emergency Department Note ---
Disposition Clinical Impression: Exertional dyspnea, Atrial fibrillation with RVR Chest pain Qualifiers: Chest pain type: unspecified Qualified Code(s): R07.9 - Chest pain, unspecified Congestive heart failure Qualifiers: Congestive heart failure type: unspecified congestive heart failure type Congestive heart failure chronicity: acute Qualified Code(s): I50.9 - Heart failure, unspecified Disposition: Admitted As Inpatient Condition: Fair Time of Disposition: 20:38 Chest Pain HPI - General Chief Complaint: ED Chest Pain Stated Complaint: SOB// chest pain Time Seen by Provider: 09/29/16 17:32 Source: patient Limitations: no limitations Vital Signs Reviewed: Yes Nursing Notes Reviewed: Yes - History of Present Illness HPI Narrative: Patient is a 61-year-old male who presents to [facility] ED with a chief complaint of difficulty breathing and chest tightness. States he has a history of refractory atrial fibrillation with RVR. He has been cardioverted multiple times and it only lasts for a few hours usually before she goes back into RVR. The risk control field representative made the decision to do an ablation on the patient. He is scheduled for an ablation on October 12 and is supposed to be getting CT mapping up at [facility] on October 08 to prepare for the ablation. Patient states over the last 2 days, he isnoticing worsening exertional dyspnea. Today he states he is now short of breath even at rest. States his chest feels extremely tight even when he is just minimally trying to exert himself. No nausea, vomiting, fever or chills. Denies any abdominal pain, problems with urination or bowel movements. Pt complaint: chest pain Onset (ago): hour(s) Duration: intermittent Onset: during exertion, awoke with symptoms Pain Location: substernal Severity: mild Severity scale (1-10): 0 Quality: tightness, heaviness Pain Radiation: none Worsens with: exertion, movement Associated symptoms: Reports: dyspnea. Denies: nausea, vomiting, diaphoresis Treatments prior to arrival chest pain: none - Related Data Home Medications Medication Instructions Recorded Confirmed Albuterol Sulfate [Albuterol 2 puff IH Q6HR PRN 08/14/16 09/20/16 Inhaler] Aspirin [Lo-Dose Aspirin EC] 81 mg PO DAILY 08/14/16 09/20/16 Fluticasone/Salmeterol [Advair 1 puff IH Q12H 08/14/16 09/20/16 250-50 Diskus] Furosemide [Lasix] 40 mg PO DAILY 08/14/16 09/20/16 Multivitamin [One Daily Essential] 1 tab PO DAILY 08/14/16 09/20/16 Rivaroxaban [Xarelto] 20 mg PO DAILY 08/14/16 09/20/16 Spironolactone [Aldactone] 12.5 mg PO DAILY 08/14/16 09/20/16 Cetirizine HCl [24Hour Allergy] 10 mg PO DAILY 09/20/16 09/20/16 Previous Rx's Medication Instructions Recorded Amiodarone [Cordarone] 200 mg PO BID #60 tablet 09/03/16 Atorvastatin [Lipitor] 40 mg PO HS #30 tablet 09/03/16 Metoprolol XL (24 HR) Succ [Toprol 50 mg PO DAILY #30 tab.er.24h 09/03/16 Xl] Allergies Allergy/AdvReac Type Severity Reaction Status Date / Time lisinopril AdvReac Cough Verified 11/26/15 07:00 flu vaccine Allergy Vomiting Uncoded 11/26/15 07:00 All systems ED: reviewed and negative except as stated. Chest Pain PMH - Past Medical History Medical history: Reports: atrial fibrillation, COPD, coronary artery disease Surgical history: Reports: orthopedic, other Psychiatric history: Reports: no psych history - Social History Smoking Status: Former smoker Alcohol use: Reports: heavy Drug use: Reports: none Physical Exam - General Limitations: no limitations General appearance: alert, in no apparent distress, obese - Head Head exam: atraumatic, normocephalic, normal inspection - Eye Eye exam: Present: normal appearance, PERRL, EOMI - ENT ENT exam: normal exam, normal oropharynx, mucous membranes moist - Neck Neck exam: Present: normal inspection, full ROM, trachea midline - Chest Chest inspection: Present: normal inspection, symmetric chest wall rise - Respiratory Respiratory exam: Present: normal lung sounds bilaterally - Cardiovascular Cardiovascular exam: Present: regular rate, normal rhythm, normal heart sounds - Abdominal Exam Abdominal exam: Present: soft, Non-Tender. Absent: tenderness, distention, guarding, rebound, rigidity - Extremities Exam Extremities exam: Present: normal inspection, full ROM. Absent: tenderness, pedal edema - Back Exam Back exam: Present: normal inspection, full ROM. Absent: tenderness - Neurological Exam Neurological exam: Present: alert - Psychiatric Psychiatric exam: Present: normal affect, normal mood - Skin Skin exam: Present: warm, dry, intact, normal color Course Course Narrative: Patient seen and examined. Complaining of difficulty breathing and chest pain. We will do cardiopulmonary workup. Patient is in atrial fibrillation with RVR. We will order 5 mg of Lopressor as well as 40 mg IV Lasix and sublingual nitroglycerin. Due to his extensive history of refractory atrial fibrillation with RVR, we will touch base with cardiology - Reevaluation(s) Reevaluation #1: Still awaiting cardiology to call back. Patient's BNP elevated over 300. Patient still feeling extremely short of breath with ambulation. His heart rate jumped up to the 130s just with taking a few short steps. We will admit for chest pain, exertional dyspnea, A. fib with RVR, congestive heart failure. I spoke with hospitalist Dr. Cruz who has accepted patient for admission. Time: 20:28 Reevaluation #2: I spoke with risk control field representative Dr. Snider who states they will see the patient in consult. Time: 20:34 Vital Signs O2 Sat by Pulse Oximetry 98 09/29/16 18:00 Temperature 98.0 F 09/29/16 18:02 Pulse Rate 116 09/29/16 19:01 Respiratory Rate 18 09/29/16 19:01 Blood Pressure 101/78 09/29/16 19:01 O2 Sat by Pulse Oximetry 99 09/29/16 19:01 Oxygen Delivery Oxygen Delivery Room Air Chest Pain - Medical Records Medical records reviewed: Yes I reviewed the patient's medical records. - Lab Data Lab results reviewed: Yes I reviewed the patient's lab results. Result diagrams: 09/29/16 17:57 09/29/16 17:57 Lab Results 09/29/16 09/29/16 09/29/16 Range/Units 17:57 17:57 17:57 WBC 7.0 (4.3-11.1) K/mcL RBC 4.71 (4.19-5.50) M/mcL Hgb 14.6 (12.9-16.9) g/dL Hct 42.6 (37.5-50.1) % MCV 90.4 (83.0-100.0) fL MCH 31.0 (28.0-33.3) pg MCHC 34.3 (31.6-35.5) g/dL RDW 13.0 (11.5-14.5) % Plt Count 188 (140-400) K/mcL MPV 10.4 (9.4-12.4) fL Immature Gran % 0.3 (0-4) % Seg Neutrophils % 54.8 % Lymphocytes % 31.3 % Monocytes % 11.3 % Eosinophils % 1.4 % Basophils % 0.9 % Neutrophils # 3.8 (1.6-8.9) K/mcL Lymphocytes # 2.2 (0.6-4.6) K/mcL Monocytes # 0.8 (0.0-1.3) K/mcL Eosinophils # 0.1 (0.0-0.6) K/mcL Basophils # 0.1 (0.0-0.2) K/mcL PT 18.5 H (9.4-12.1) Seconds INR 1.7 APTT 35.1 (26.0-36.0) Seconds Sodium (136-145) mEq/L Potassium (3.5-4.5) mEq/L Chloride (98-109) mEq/L Carbon Dioxide (19-29) mEq/L BUN (8-26) mg/dL Creatinine (0.72-1.25) mg/dL Est GFR ( Amer) (> 60) Est GFR (Non-Af Amer) (> 60) BUN/Creatinine Ratio (6-26) Glucose (70-99) mg/dL Calculated Osmolality (280-300) Calcium (8.6-10.8) mg/dL Troponin I (0-0.03) ng/mL B-Natriuretic Peptide 370 H (0-100) pg/mL 09/29/16 09/29/16 Range/Units 17:57 17:57 WBC (4.3-11.1) K/mcL RBC (4.19-5.50) M/mcL Hgb (12.9-16.9) g/dL Hct (37.5-50.1) % MCV (83.0-100.0) fL MCH (28.0-33.3) pg MCHC (31.6-35.5) g/dL RDW (11.5-14.5) % Plt Count (140-400) K/mcL MPV (9.4-12.4) fL Immature Gran % (0-4) % Seg Neutrophils % % Lymphocytes % % Monocytes % % Eosinophils % % Basophils % % Neutrophils # (1.6-8.9) K/mcL Lymphocytes # (0.6-4.6) K/mcL Monocytes # (0.0-1.3) K/mcL Eosinophils # (0.0-0.6) K/mcL Basophils # (0.0-0.2) K/mcL PT (9.4-12.1) Seconds INR APTT (26.0-36.0) Seconds Sodium 136 (136-145) mEq/L Potassium 4.1 (3.5-4.5) mEq/L Chloride 106 (98-109) mEq/L Carbon Dioxide 20 (19-29) mEq/L BUN 22 (8-26) mg/dL Creatinine 1.10 (0.72-1.25) mg/dL Est GFR ( Amer) > 60 (> 60) Est GFR (Non-Af Amer) > 60 (> 60) BUN/Creatinine Ratio 20 (6-26) Glucose 107 H (70-99) mg/dL Calculated Osmolality 286 (280-300) Calcium 8.8 (8.6-10.8) mg/dL Troponin I 0.01 (0-0.03) ng/mL B-Natriuretic Peptide (0-100) pg/mL - Radiology Data Radiology results reviewed: Yes I reviewed the patient's radiology results. Chest X-Ray 09/29/16 17:48 IMPRESSION: No acute cardiopulmonary abnormality D/ / Dominick Valentine / Dominick Valentine Interpreting Provider: Dominick Valentine - EKG Data EKG attestation: Yes I reviewed and interpreted this EKG. EKG results narrative: EKG done at 1735 shows atrial fibrillation with a rate of [address] elevation or depression. Normal axis. Heart Score - Score History: Moderately Suspicious EKG: Normal Age: 45-65 Risk Factors: 1-2 risk factors Troponin: Less than normal limit HEART Score Total: 3 Attestation Statement - Attestation Attestation: Patient was seen with resident physician. I reviewed the history, physical, assessment and plan, and agree with the findings. I also personally evaluated this patient and had [id number] time with this patient. 61-year-old male with a history of atrial fibrillation or flutter that is been resistant to cardioversion comes in today with worsening shortness of breath and chest pressure. Patient states that he is currently in the process of attempting to get an ablation, and is scheduled to get a mapping done up at [facility] later this week. He has not had the ablation done as of yet. He is on several medications to try and help control his rate he simply CHF and shortness of breath gotten progressively worse in the last 48 hours. He said usually when he is in A. fib he has some decreased ability to walk without getting short of breath. Now he says he cannot even sit up without getting short of breath and is exertional dyspnea has gotten significantly worse. He also notes a chest-like pressure sensation that is around his entire chest but mostly anteriorly on the left side. He denies nausea vomiting or diarrhea. Examination vital signs patient's tachycardic slightly hypoxic and blood pressure is normal range. ENT is normal. Heart tachycardic no murmurs. Lungs clear. Abdomen soft nontender obese. Extremities patient has swelling of the lower extremities was is bilateral and symmetric. Neurologically alert and oriented. ED course we will do workup for CHF and chest pain. We will call cardiology to determine disposition for the patient whether he needs to stay here at [facility] or needs to be transferred. Cardiology felt he could be managed by the hospitalist service and could stay here at this hospital. We will also treat his symptoms with nitroglycerin Lasix and metoprolol. Patient remained hemodynamically stable in the emergency department. I agree with resident physician assessment and plan.
[2016-09-29 18:35] LABS: BUN/Creatinine Ratio 20 (6-26); Blood Urea Nitrogen 22 mg/dL (8-26); Calcium 8.8 mg/dL (8.6-10.8); Carbon Dioxide 20 mEq/L (19-29); Chloride 106 mEq/L (98-109); Glucose 107 mg/dL (70-99); Osmolality,Calculated 286 (280-300); Potassium 4.1 mEq/L (3.5-4.5); Sodium 136 mEq/L (136-145); eGFR For African Americans > 60 (> 60); eGFR For Non-African Americans > 60 (> 60)
[2016-09-29] MEDS ORDERED: Ondansetron 4 MG/2 ML VIAL IVP PRN (21:24)
[2016-09-29] MEDS ORDERED: Acetaminophen 325 MG TABLET PO PRN (21:24)
[2016-09-29] MEDS ORDERED: Naloxone 0.4 MG/ML INJ IVP PRN (21:24)
--- NOTE | 2016-09-29 22:06 | Internal Med History&Physical ---
Date of Encounter: 09/29/16 Time of Encounter: 21:40 Assessment and Plan (1) Congestive heart failure Current visit: Yes Status: Chronic Patient has an ejection fraction of 25-30%. Nonischemic cardiomyopathy. Patient noncompliant with fluid and salt restriction as he is unaware of the same. He was educated about these. Admit inpatient status. She received a dose of Lasix in the emergency department. Hold the Lasix for now as the patient's blood pressure is borderline low. Monitor his blood pressure and give Lasix as her blood pressure is better. High risk due to risk of lethal arrhythmias. Expected to be in the hospital for at least 2 minutes. Expected discharge disposition is to home. Cardiac consult. Fluid restricted in sodium restricted diet. Strict I's and O's and daily weights. Qualifiers: Congestive heart failure type: systolic Congestive heart failure chronicity : acute on chronic Qualified Code(s): I50.23 - Acute on chronic systolic ( congestive) heart failure (2) Atrial fibrillation with RVR Current visit: Yes Status: Acute Patient has a history of atrial fibrillation that is recurrent. He has had multiple cardioversions performed. He is scheduled for CT mapping on October 08 at [facility] His last cardioversion was about 10 days ago. Patient presents with sudden onset shortness of breath. He has a irregular rate and irregular pulse. EKG reveals Atrial fibrillation. His home medications will be resumed. Cardiology has been consulted by ER. We will await further recommendations. High risk due to risk of lethal arrhythmias. (3) COPD (chronic obstructive pulmonary disease) Current visit: Yes Status: Chronic Stable. Breathing treatments when necessary. Qualifiers: COPD type: unspecified COPD Qualified Code(s): J44.9 - Chronic obstructive pulmonary disease, unspecified (4) SNEHA on CPAP Current visit: Yes Status: Chronic CPAP at bedtime. Patient unaware of settings. (5) Nonischemic cardiomyopathy Current visit: Yes Status: Chronic (6) Morbid obesity Current visit: No Status: Chronic Qualifiers: Obesity type: unspecified obesity type Qualified Code(s): E66.01 - Morbid ( severe) obesity due to excess calories Internal Medicine - H&P: HPI Chief complaint: Shortness of breath and chest tightness Admitted From: Emergency Dept Plans for Post Hospital Care: Home History of present illness: Mr. Landa is a 61 year old male with a history of nonischemic cardiomyopathy and atrial fibrillation status post cardioversion earlier this month who presents to the emergency room due to sudden onset shortness of breath. Patient states that the shortness of breath woke him up from sleep today morning at 5:30 AM when he was sleeping with the CPAP on. The shortness of breath was associated with chest tightness. He denies having any lightheadedness but reports having palpitations. He denies any chest pain, cough, wheezing, fever or chills. He denies any recent weight changes or worsening swelling in his legs. He denies monitoring his fluid or salt intake or monitoring his weights daily. He denies any recent sick contacts or eating out. He denies any recent travel history. The shortness of breath was present at rest and was worsened with activity and relieved with rest. Hence, he presented to the emergency room. He was given intravenous Lasix in the emergency room with partial relief of symptoms. However, he continues to complain of shortness of breath when he is sitting in a chair. He denies any weakness in his arms or legs. Past Med Surg Social Fam HX - Past Medical History Attestation: Yes The following information was validated with the patient. Source: patient Medical history: atrial fibrillation, CHF, COPD Psychiatric history: no psych history - Past Surgical History Surgical History: orthopedic, other - Social History Smoking Status: Former smoker Smokeless Tobacco Status: No Alcohol use: heavy Drug use: none Occupational status: employed Current living situation: Home, With Family Activity Level: Independent ambulation Recent Out of Country Travel Within the Last 8 Weeks: No Exposure or Possible Exposure to Illness During Travel: No - Family History Mother Family Member Ethnicity: Non- Living Status: Father Family Member Ethnicity: Non- Living Status: Brother Family Member Ethnicity: Non- Living Status: Still Living Sister Family Member Ethnicity: Non- Living Status: Still Living Hx Family Cardiac Disorders: Yes (BP, Hyperlipidemia) Internal Medicine - H&P: Meds Albuterol Sulfate [Albuterol Inhaler] 2 puff IH Q6HR PRN 08/14/16 [History] Aspirin [Lo-Dose Aspirin EC] 81 mg PO DAILY 08/14/16 [History] Fluticasone/Salmeterol [Advair 250-50 Diskus] 1 puff IH Q12H 08/14/16 [History] Furosemide [Lasix] 40 mg PO DAILY 08/14/16 [History] Multivitamin [One Daily Essential] 1 tab PO DAILY 08/14/16 [History] Rivaroxaban [Xarelto] 20 mg PO DAILY 08/14/16 [History] Spironolactone [Aldactone] 12.5 mg PO DAILY 08/14/16 [History] Amiodarone [Cordarone] 200 mg PO BID #60 tablet 09/03/16 [Rx] Atorvastatin [Lipitor] 40 mg PO HS #30 tablet 09/03/16 [Rx] Metoprolol XL (24 HR) Succ [Toprol Xl] 50 mg PO DAILY #30 tab.er.24h 09/03/16 [ Rx] Cetirizine HCl [24Hour Allergy] 10 mg PO DAILY 09/20/16 [History] Allergies lisinopril Adverse Reaction (Verified 11/26/15 07:00) Cough flu vaccine Allergy (Uncoded 11/26/15 07:00) Vomiting All Systems PM: A 10-system review of systems was performed and is negative for pertinent findings except as documented above in the HPI. Review of systems: 10 systems have been reviewed and are negative except as mentioned in the history of present illness - Constitutional Vitals: Temp Pulse Resp BP Pulse Ox 98.0 F 116 18 101/78 99 09/29/16 18:02 09/29/16 19:01 09/29/16 19:01 09/29/16 19:01 09/29/16 19:01 Exam: Gen.: Sitting in a chair. Mild distress. Eyes: Pupils equal, round and reactive to light. Extraocular muscles intact. ENT: Moist mucous membranes. No oropharyngeal erythema or discharge. Chest: Bilateral diffuse wheezing present. No crepitations present. Reduced air entry bilaterally. CVS: First and second heart sounds present. No murmurs, rubs or gallops. Irregularly irregular rate and rhythm. Abdomen: Soft, nontender, obese. Bowel sounds present. No hepatosplenomegaly. Skin: No decubitus ulcers appreciated. [employer]: No focal neuro deficits present. Psychiatric: Alert, awake and oriented to time, place and person. Lymphatic system: No lymphadenopathy appreciated Internal Med - H&P Results - Labs CBC & Chem 7: 09/29/16 17:57 09/29/16 17:57 - EKG Data -: EKG Interpreted by Myself (Atrial fibrillation with rapid ventricular response) - Diagnostic Studies Chest x-ray Status: image reviewed by me
[2016-09-29] MEDS: *HR* Amiodarone 200 MG TABLET PO SCH (23:22)
--- NOTE | 2016-09-30 08:24 | Internal Med Progress Note ---
Date of Encounter: 09/30/16 Time of Encounter: 08:23 - Assessment and plan (1) Atrial fibrillation with RVR Current Visit: No Status: Acute Assessment and plan: Patient is known to have atrial fibrillation with rapid ventricular rate. Multiple admissions in the past, I personally took care of this patient few months back. Patient underwent multiple cardioversion and noted that he has been scheduled for cryoablation in early October. Plan: Continue beta jassi Continue amiodarone Cardiology on the board We will follow the recommendations (2) Hypertension Current Visit: No Status: Chronic Assessment and plan: Presently his blood pressure is very well controlled and we will continue same medications. Qualifiers: Hypertension type: essential hypertension Qualified Code(s): I10 - Essential (primary) hypertension (3) Morbid obesity Current Visit: No Status: Chronic Assessment and plan: Patient may get benefit from outpatient bariatric surgery once these all occurred problems get resolved Qualifiers: Obesity type: unspecified obesity type Qualified Code(s): E66.01 - Morbid ( severe) obesity due to excess calories (4) SNEHA on CPAP Current Visit: Yes Status: Chronic Assessment and plan: Possible reason for his persistent A. fib (5) DVT prophylaxis Current Visit: No Status: Acute Assessment and plan: On the Novel anticoagulation Medical decision making: This patient has moderate to severe risk of worsening in spite of being on appropriate medication due to underlying recurrent atrial fibrillation. - Subjective Interval history: Seen and examined. Chart reviewed. Patient is comfortably sitting up in chair. Patient complains of generalized weakness and tiredness. Patient denies shortness of breath, dizziness, blurring of vision, nausea, vomiting and diarrhea. - Constitutional Vitals: Temp Pulse Resp BP Pulse Ox 97.6 F 95 16 101/76 97 09/30/16 06:56 09/30/16 06:56 09/30/16 06:56 09/30/16 08:02 09/30/16 06:56 General appearance: Present: A&O X 3, morbidly obese, pleasant, no acute distress, answers questions appropriately - Head Head exam: Present: atraumatic, normocephalic - Eye Eye exam: Present: PERRL, conjuntiva pink, sclera anicteric Pupils: Present: PERRL - Neck Neck exam general surgery: Present: supple, trachea midline. Absent: lymphadenopathy - Respiratory Respiratory exam: Present: CTAB. Absent: accessory muscle use, rales, rhonchi, wheezes - Cardiovascular Cardiovascular exam: Present: RRR, +S1, +S2. Absent: diastolic murmur, gallop, rubs, systolic murmur - GI/Abdominal GI/Abdominal exam: Present: normal bowel sounds, soft, no peritoneal signs. Absent: distended, tenderness - Extremities Exam Extremities exam: Present: warm, radial pulses palpable and symetrical. Absent : calf tenderness, cyanotic, pedal edema - Neurological Exam Neurological exam: Present: CN II-XII intact, oriented X3, no focal deficits. Absent: pronater drift, facial droop, speech deficit - Skin Skin exam: Present: dry, intact Internal Medicine: Result - Labs CBC & Chem 7: 09/29/16 17:57 09/29/16 17:57 - ABG Interpretation ABG results: PT/INR, D-dimer PT 18.5 Seconds (9.4-12.1) H 09/29/16 17:57 Consult Discharge Plan - Plan Referrals: Christopher Poole MD [Primary Care Provider] -
[2016-09-30] MEDS: Aspirin Enteric Coated 81 MG Tablet PO SCH (10:42)
[2016-09-30] MEDS: *HR* Rivaroxaban 10 MG TABLET PO SCH (10:42)
[2016-09-30] MEDS: *HR* Amiodarone 200 MG TABLET PO SCH ×2 (10:42→21:03)
[2016-09-30] MEDS: Loratadine 10 MG TABLET PO SCH (10:42)
[2016-09-30] MEDS: Metoprolol XL (24 HR) Succ 50 MG TAB.ER.24H PO SCH (10:43)
[2016-09-30] MEDS: Budesonide/Formoterol 80/4.5 MDI IH SCH ×2 (10:59→21:07)
--- NOTE | 2016-09-30 11:08 | Cardiology Consult Note ---
<Chico Mccarthy - Last Filed: 09/30/16 12:23> Date of Encounter: 09/30/16 Time of Encounter: 10:00 Assessment and Plan (1) Atrial fibrillation with RVR Current Visit: Yes Status: Acute Per Cardiology: Recurrent atrial flutter/atrial fibrillation with RVR. Average heart rate on telemetry past 24 hours 99. Currently H atrial fibrillation in the 90s on telemetry. Patient on amiodarone 200mg PO BID and beta jassi. Heart rates and symptoms improved with diuresis. Patient has pending CT scan for mapping at [facility] to be scheduled in early October as outpatient within 7 days prior to ablation at [facility] scheduled October 15, [address] Benigno Soliz. Per discussion with Dr. Snider, we'll continue with rate control strategy and diuresis. Patient will proceed with outpatient CT scan with mapping as an outpatient as scheduled. Plan for ablation October 15 as scheduled. Patient verbalized understanding and agreed to plan. (2) Chest pain Current Visit: Yes Status: Acute Per Cardiology: Currently resolved. Troponin negative 1. Occurred in setting of suspected volume overload and A. fib with RVR. Previously discussed and reviewed with Dr. Benigno Soliz and Dr. Flores with no recommendations for further ischemic evaluation. Continue to monitor. Last [facility] 2011: Findings/Interventions: Left Ventriculography - The overall left ventricular systolic function was severely reduced. Left ventricular ejection fraction was 10-15%. There is severe, global, left ventricular hypokinesis. Left Main Coronary Artery - There were no obstructing lesions in the left main coronary artery. Blood flow appeared normal. Left Anterior Descending Artery - There was a 20% discrete stenosis in the proximal left anterior descending artery. Left Circumflex Artery - There was a ramus intermedius artery present. There were no obstructing lesions in the left circumflex artery. Blood flow appeared normal. Right Coronary Artery - The right coronary artery was dominant to the posterior circulation. There was a 20% discrete stenosis in the mid right coronary artery. 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 BNP mildly elevated. SOB and rate control has improved with IV Lasix. Proceed with 2 L fluid restriction, daily weights, strict I&O, bilateral knee-high SUZANNE hose. Lengthy discussion with patient today regarding long-term need for 2 L fluid resection, sodium restriction, and daily weights at home. (4) SNEHA on CPAP Current Visit: Yes Status: Chronic Per Cardiology: Have patient wear at home CPAP during stay. (5) nursing home current use of anticoagulant Current Visit: No Status: Chronic Per Cardiology: On Xarelto 20mg PO daily. Discussion w patient/family: The assessment and plan as outlined above was discussed with the patient who expressed understanding and agreement. All questions were answered. Thank you for involving us in the care of your patient. Please call with any questions. History of Present Illness Consult date: 09/30/16 Requesting physician: Bennett Skaggs Consult reason: Afib RVR, CHF Chief complaint: SOB History of present illness: Mr. Landa is a 61 year old male with a relevant past medical history of paroxysmal atrial fibrillation with recent failed sotalol therapy and currently on amiodarone, on Xarelto for anticoagulation, history of nonischemic cardiomyopathy, obstructive sleep apnea with utilization of CPAP, diet controlled diabetes mellitus type 2. Patient well known to cardiology. Recent hospitalizations for recurrent A. fib with RVR. Initially had been managed with sotalol 160 mg by mouth every 12 hours for the past 4-5 years. Underwent DC cardioversion with increased dose of Coreg with successful conversion to sinus rhythm. Unfortunately, patient had recurrent A. fib with RVR and required another hospitalization and underwent sotalol washout and initiation of amiodarone for rate control. Patient recently seen by Dr. Benigno Soliz in outpatient setting and underwent DC cardioversion with successful conversion to sinus rhythm with one shock at 300 J. Goal was advent of sinus rhythm for symptomatic management until ablation can be completed as scheduled in early October. Patient reports yesterday developed chest pressure and shortness of breath with minimal activity. He reports anxiety with palpitations and racing heart rate. She reports overall symptoms similar to his experienced, however shortness of breath was worse this time. Patient reports he does not weigh himself daily. He does report he has not been monitoring fluid or sodium at home. Admits to a beer or 2 daily. Reorts compliance with CPAP. Reports pending outpatient CT mapping evaluation at [facility] within one week prior to scheduled ablation October 15, [address] [facility] with [address] Benigno Soliz. Reports compliance with medications. Denies any active bleeding or blood loss. Reports bilateral lower extreme swelling slightly worsened. He does report his SOB of breath has improved during hospital stay receiving IV Lasix. Past Med Surg Social Fam HX - Past Medical History Attestation: Yes The following information was validated with the patient. Source: patient, old records reviewed Medical history: atrial fibrillation, CHF, COPD Psychiatric history: no psych history - Past Surgical History Surgical History: orthopedic, other - Social History Smoking Status: Former smoker Smokeless Tobacco Status: No Alcohol use: heavy Drug use: none - Family History Mother Family Member Ethnicity: Non- Living Status: Father Family Member Ethnicity: Non- Living Status: Brother Family Member Ethnicity: Non- Living Status: Still Living Sister Family Member Ethnicity: Non- Living Status: Still Living Hx Family Cardiac Disorders: Yes (BP, Hyperlipidemia) Medications and Allergies Albuterol Sulfate [Albuterol Inhaler] 2 puff IH Q6HR PRN 08/14/16 [History] Aspirin [Lo-Dose Aspirin EC] 81 mg PO DAILY 08/14/16 [History] Fluticasone/Salmeterol [Advair 250-50 Diskus] 1 puff IH Q12H 08/14/16 [History] Furosemide [Lasix] 40 mg PO DAILY 08/14/16 [History] Multivitamin [One Daily Essential] 1 tab PO DAILY 08/14/16 [History] Rivaroxaban [Xarelto] 20 mg PO DAILY 08/14/16 [History] Spironolactone [Aldactone] 12.5 mg PO DAILY 08/14/16 [History] Amiodarone [Cordarone] 200 mg PO BID #60 tablet 09/03/16 [Rx] Atorvastatin [Lipitor] 40 mg PO HS #30 tablet 09/03/16 [Rx] Metoprolol XL (24 HR) Succ [Toprol Xl] 50 mg PO DAILY #30 tab.er.24h 09/03/16 [ Rx] Cetirizine HCl [24Hour Allergy] 10 mg PO DAILY 09/20/16 [History] Allergies lisinopril Adverse Reaction (Verified 11/26/15 07:00) Cough flu vaccine Allergy (Uncoded 11/26/15 07:00) Vomiting All Systems Review: A 10-system review of systems was performed and is negative for pertinent findings except as documented above in the HPI. - Constitutional Constitutional: fatigue - Cardiovascular Cardiovascular: as per HPI, chest pain at rest, dyspnea at rest, dyspnea on exertion, irregular heart rhythm, leg edema, palpitations, rapid heart rate Physical Examination Vital Signs, Last 4 Hours Resp BP Pulse Ox 09/30/16 11:01 16 97 09/30/16 08:02 101/76 General: Conversant, No Apparent Distress HEENT: Atraumatic, Normocephaly, Mucus Membranes Moist Neck: No JVD, Normal carotid pulses Cardiac: No Murmur, Other (Irregularly irregular) Lungs: Normal Breath Sounds, No Wheeze, Rales, Rhonchi Neuro: Alert and responsive, No focal deficits noted Abdomen: Soft, Non-Tender Skin: No rashes noted on visualized skin Musculoskeletal: No Chest Wall Tenderness Extremities: No Clubbing, No Cyanosis, Normal Pulses, Other (+1-2 pitting edema to bilateral lower extremities right greater than left-- patient reports right leg chronically larger than left leg) Results 09/29/16 17:57 09/29/16 17:57 Laboratory Tests 09/29/16 09/29/16 09/29/16 17:57 17:57 17:57 INR 1.7 Troponin I 0.01 B-Natriuretic Peptide 370 H ITS Impressions Chest X-Ray 09/29/16 17:48 IMPRESSION: No acute cardiopulmonary abnormality D/ / Dominick Valentine / Dominick Valentine Interpreting Provider: Dominick Valentine Intake & Output 09/27/16 09/28/16 09/29/16 09/30/16 23:59 23:59 23:59 23:59 Intake Total 0 / 0 240 / 240 Output Total 0 / 0 550 / 550 Balance 0 / 0 -310 / -310 Weight 159.1 kg 159.1 kg Active Medications Acetaminophen (Tylenol) 650 mg PO Q6HR PRN PRN Reason: Mild Pain (1-3) Stop: 03/31/17 21:25 Amiodarone HCl (Cordarone) 200 mg PO BID [facility] Stop: 03/31/17 22:16 Last Admin: 09/30/16 10:42 Dose: 200 mg Aspirin (Aspirin Ec) 81 mg PO DAILY [facility] Stop: 04/01/17 09:01 Last Admin: 09/30/16 10:42 Dose: 81 mg Atorvastatin Calcium (Lipitor) 40 mg PO HS [facility] Stop: 04/01/17 21:01 Budesonide/Formoterol Fumarate (Symbicort) 1 puff IH [id number] SARAI Stop: 04/01/17 10:01 Last Admin: 09/30/16 10:59 Dose: 1 puff Loratadine (Claritin) 10 mg PO DAILY [facility] Stop: 04/01/17 09:01 Last Admin: 09/30/16 10:42 Dose: 10 mg Metoprolol Succinate (Toprol Xl) 50 mg PO DAILY [facility] Stop: 04/01/17 09:01 Last Admin: 09/30/16 10:43 Dose: 50 mg Metoprolol Tartrate (Lopressor) 5 mg IVP Q5MIN [facility] Stop: 10/01/16 18:16 Last Admin: 09/29/16 18:50 Dose: 5 mg Naloxone HCl (Narcan) 0.4 mg IVP Q2MIN PRN PRN Reason: Opioid Reversal Stop: 03/31/17 21:25 Nitroglycerin (Nitroglycerin) 0.4 mg SL Q5MIN PRN PRN Reason: Chest Pain Stop: 03/31/17 18:03 Last Admin: 09/29/16 18:50 Dose: 0.4 mg Ondansetron HCl (Zofran) 4 mg IVP Q8HR PRN PRN Reason: Nausea And Vomiting Stop: 03/31/17 21:25 Rivaroxaban (Xarelto) 20 mg PO DAILY [facility] Stop: 04/01/17 09:01 Last Admin: 09/30/16 10:42 Dose: 20 mg - Imaging and Cardiology Chest Xray: report reviewed - EKG Interpretation EKG results cardiology: personally reviewed, other (afib/flutter on tele 90's) Consult Discharge Plan - Plan Referrals: Christopher Poole MD [Primary Care Provider] - <Leila Snider - Last Filed: 09/30/16 15:09> Date of Encounter: 09/30/16 Assessment and Plan Discussion w patient/family: The assessment and plan as outlined above was discussed with the patient and/or family members who expressed understanding and agreement. All questions were answered. Thank you for involving us in the care of your patient. Please call with any questions. History of Present Illness History of present illness: Mr. Landa is a 61 year old male All Systems Review: A 10-system review of systems was performed and is negative for pertinent findings except as documented above in the HPI. Physical Examination Vital Signs, Last 4 Hours Temp Pulse Resp BP Pulse Ox 09/30/16 11:46 97.4 F L 103 15 92/84 98 Results 09/29/16 17:57 09/29/16 17:57 - Attending Attestation I examined this patient and my medical decision-making was reviewed with the ANALYTICAL TECH/PA/Advanced Practice Nurse/Resident Physician. I agree with the documented findings, disposition and treatment plan. Patient presents with main complaint of SOB and appears volume overloaded probably due to a combination of systolic and diastolic heart failure exacerbation. Agree with IV diuresis. Presently, heart rates appear controlled. Continue medical management.
[2016-09-30] MEDS ORDERED: Furosemide 20 MG/2 ML VIAL IVP ONE (11:33)
--- NOTE | 2016-09-30 14:38 | Electrocardiograph Report ---
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
[2016-10-01 03:52] LABS: Basophils # 0.1 K/mcL (0.0-0.2); Basophils % 0.8 %; Eosinophils # 0.1 K/mcL (0.0-0.6); Eosinophils % 1.9 %; Hematocrit 42.2 % (37.5-50.1); Immature Granulocytes % 0.3 % (0-4); Lymphocytes # 1.8 K/mcL (0.6-4.6); Lymphocytes % 29.4 %; Mean Corpuscular HGB Conc 33.2 g/dL (31.6-35.5); Mean Corpuscular Hemoglobin 30.8 pg (28.0-33.3); Mean Corpuscular Volume 92.7 fL (83.0-100.0); Mean Platelet Volume 10.3 fL (9.4-12.4); Monocytes # 0.6 K/mcL (0.0-1.3); Monocytes % 10.3 %; Neutrophils # 3.6 K/mcL (1.6-8.9); Platelet Count 161 K/mcL (140-400); Red Blood Count 4.55 M/mcL (4.19-5.50); Red Cell Distribution Width 13.1 % (11.5-14.5); Segmented Neutrophils % 57.3 %
[2016-10-01 04:09] LABS: Alanine Aminotransferase 39 Units/L (0-55); Albumin 3.2 g/dL (3.5-5.0); Albumin/Globulin Ratio 1.2 (1.1-2.2); Alkaline Phosphatase 96 Units/L (38-126); Aspartate Amino Transferase 22 Units/L (5-34); BUN/Creatinine Ratio 21 (6-26); Bilirubin,Total 0.8 mg/dL (0.2-1.2); Blood Urea Nitrogen 24 mg/dL (8-26); Calcium 8.9 mg/dL (8.6-10.8); Carbon Dioxide 22 mEq/L (19-29); Chloride 108 mEq/L (98-109); Globulin 2.6 g/dL (2.4-3.5); Glucose 126 mg/dL (70-99); Osmolality,Calculated 292 (280-300); Potassium 4.2 mEq/L (3.5-4.5); Sodium 138 mEq/L (136-145); Total Protein 5.8 g/dL (6.0-8.3); eGFR For African Americans > 60 (> 60); eGFR For Non-African Americans > 60 (> 60)
[2016-10-01 06:44] VITALS: BP 101/75
--- NOTE | 2016-10-01 07:35 | Cardiology Progress Note ---
Date of Encounter: 10/01/16 Time of Encounter: 07:30 Assessment and Plan (1) Atrial fibrillation with RVR Current Visit: Yes Status: Acute Per Cardiology: Recurrent atrial flutter/atrial fibrillation with RVR. Average heart rate on telemetry past 12 hrs 99. Currently atrial fibrillation in the 90s on telemetry. Patient on amiodarone 200mg PO BID and beta jassi. Heart rates and symptoms improved with diuresis. Patient has pending CT scan for mapping at [place] to be scheduled in early October as outpatient within 7 days prior to ablation at [facility] scheduled October 15, [address] Benigno Soliz. Per discussion with Dr. Snider, we'll continue with rate control strategy and diuresis. Patient will proceed with outpatient CT scan with mapping as an outpatient as scheduled. Plan for ablation October 15 as scheduled. Cardiology will sign off, re-consult as needed, follow-up as already scheduled. (2) Chest pain Current Visit: Yes Status: Acute Per Cardiology: Currently resolved. Troponin negative 1. Occurred in setting of suspected volume overload and A. fib with RVR. Previously discussed and reviewed with Dr. Benigno Soliz and Dr. Flores with no recommendations for further ischemic evaluation. Continue to monitor. Last [facility] 2011: Findings/Interventions: Left Ventriculography - The overall left ventricular systolic function was severely reduced. Left ventricular ejection fraction was 10-15%. There is severe, global, left ventricular hypokinesis. Left Main Coronary Artery - There were no obstructing lesions in the left main coronary artery. Blood flow appeared normal. Left Anterior Descending Artery - There was a 20% discrete stenosis in the proximal left anterior descending artery. Left Circumflex Artery - There was a ramus intermedius artery present. There were no obstructing lesions in the left circumflex artery. Blood flow appeared normal. Right Coronary Artery - The right coronary artery was dominant to the posterior circulation. There was a 20% discrete stenosis in the mid right coronary artery. 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 BNP mildly elevated. SOB and rate control has improved with IV Lasix. I reinforced 2 L fluid restriction, sodium restriction, and daily weights at home. 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 Discussion w patient/family: The assessment and plan as outlined above was discussed with the patient who expressed understanding and agreement. All questions were answered. Thank you for involving us in the care of your patient. Please call with any questions. Subjective Principal diagnosis: Afib RVR, SOB Interval history: Patient reports shortness of breath has improved. Denies any chest pain or palpitations. Denies any concerns or complaints overnight. Reports pending discharge this morning. Objective Vital Signs, Last 4 Hours Temp Pulse Resp BP Pulse Ox 10/01/16 06:43 97.8 F 102 18 101/75 97 10/01/16 03:43 97.5 F L 98 18 113/91 General: Conversant, No Apparent Distress HEENT: Atraumatic, Normocephaly, Mucus Membranes Moist Cardiac: Normal S1 and S2, No Murmur, Other (Irregularly irregular) Lungs: Normal Breath Sounds, No Wheeze, Rales, Rhonchi Neuro: Alert and responsive, No focal deficits noted Skin: No rashes noted on visualized skin Musculoskeletal: No Chest Wall Tenderness Extremities: No Clubbing, No Cyanosis, No Edema, Normal Pulses, Other (+ 1 pitting edema bilateral LE R>L) Results 10/01/16 03:06 10/01/16 03:06 Lab Results Laboratory Tests 10/01/16 03:06 Potassium 4.2 Creatinine 1.16 Est GFR (Non-Af Amer) > 60 Intake & Output 09/28/16 09/29/16 09/30/16 10/01/16 23:59 23:59 23:59 23:59 Intake Total 0 / 0 980 / 980 100 / 100 Output Total 0 / 0 1200 / 1200 600 / 600 Balance 0 / 0 -220 / -220 -500 / -500 Weight 159.1 kg 159.1 kg 160 kg Active Medications Acetaminophen (Tylenol) 650 mg PO Q6HR PRN PRN Reason: Mild Pain (1-3) Stop: 03/31/17 21:25 Amiodarone HCl (Cordarone) 200 mg PO BID SARAI Stop: 03/31/17 22:16 Last Admin: 09/30/16 21:03 Dose: 200 mg Aspirin (Aspirin Ec) 81 mg PO DAILY [facility] Stop: 04/01/17 09:01 Last Admin: 09/30/16 10:42 Dose: 81 mg Atorvastatin Calcium (Lipitor) 40 mg PO HS SARAI Stop: 04/01/17 21:01 Last Admin: 09/30/16 21:03 Dose: 40 mg Budesonide/Formoterol Fumarate (Symbicort) 1 puff IH [id number] SARAI Stop: 04/01/17 10:01 Last Admin: 09/30/16 21:07 Dose: 1 puff Loratadine (Claritin) 10 mg PO DAILY [facility] Stop: 04/01/17 09:01 Last Admin: 09/30/16 10:42 Dose: 10 mg Metoprolol Succinate (Toprol Xl) 50 mg PO DAILY [facility] Stop: 04/01/17 09:01 Last Admin: 09/30/16 10:43 Dose: 50 mg Naloxone HCl (Narcan) 0.4 mg IVP Q2MIN PRN PRN Reason: Opioid Reversal Stop: 03/31/17 21:25 Nitroglycerin (Nitroglycerin) 0.4 mg SL Q5MIN PRN PRN Reason: Chest Pain Stop: 03/31/17 18:03 Last Admin: 09/29/16 18:50 Dose: 0.4 mg Ondansetron HCl (Zofran) 4 mg IVP Q8HR PRN PRN Reason: Nausea And Vomiting Stop: 03/31/17 21:25 Rivaroxaban (Xarelto) 20 mg PO DAILY [facility] Stop: 04/01/17 09:01 Last Admin: 09/30/16 10:42 Dose: 20 mg - EKG Interpretation EKG results cardiology: other (Telemetry reviewed with average heart rate past 12 hours 104, remains in atrial fibrillation, currently 80s to 90s on telemetry) Consult Discharge Plan - Plan Additional Instructions: 1. Follow-up with your primary care provider in the next 3-5 days 2. Take all prescriptions as prescribed, any concerns or questions contact her primary care provider. 3. Return to the emergency department if: Referrals: Christopher Poole MD [Primary Care Provider] - 10/10/16 9:30 am Prescriptions: Amiodarone [Cordarone] 200 mg PO BID #60 tablet Atorvastatin [Lipitor] 40 mg PO HS #30 tablet Furosemide [Lasix] 40 mg PO DAILY #30 tablet Metoprolol XL (24 HR) Succ [Toprol Xl] 50 mg PO DAILY #60 tab.er.24h Rivaroxaban [Xarelto] 20 mg PO DAILY #30 tablet
--- NOTE | 2016-10-01 08:02 | Discharge Summary ---
<Seth Park - Last Filed: 10/01/16 15:15> Date of Encounter: 10/01/16 Time of Encounter: 08:02 - Discharge Medications Prescriptions: Amiodarone [Cordarone] 200 mg PO BID #60 tablet Atorvastatin [Lipitor] 40 mg PO HS #30 tablet Furosemide [Lasix] 40 mg PO DAILY #30 tablet Metoprolol XL (24 HR) Succ [Toprol Xl] 50 mg PO DAILY #60 tab.er.24h Rivaroxaban [Xarelto] 20 mg PO DAILY #30 tablet Home Medications: Albuterol Sulfate [Albuterol Inhaler] 2 puff IH Q6HR PRN 08/14/16 [History] Aspirin [Lo-Dose Aspirin EC] 81 mg PO DAILY 08/14/16 [History] Fluticasone/Salmeterol [Advair 250-50 Diskus] 1 puff IH Q12H 08/14/16 [History] Multivitamin [One Daily Essential] 1 tab PO DAILY 08/14/16 [History] Spironolactone [Aldactone] 12.5 mg PO DAILY 08/14/16 [History] Cetirizine HCl [24Hour Allergy] 10 mg PO DAILY 09/20/16 [History] Acetaminophen [Tylenol] 650 mg PO Q6HR PRN #0 tablet 10/01/16 [Rx] Amiodarone [Cordarone] 200 mg PO BID #60 tablet 10/01/16 [Rx] Atorvastatin [Lipitor] 40 mg PO HS #30 tablet 10/01/16 [Rx] Furosemide [Lasix] 40 mg PO DAILY #30 tablet 10/01/16 [Rx] Metoprolol XL (24 HR) Succ [Toprol Xl] 50 mg PO DAILY #60 tab.er.24h 10/01/16 [ Rx] Rivaroxaban [Xarelto] 20 mg PO DAILY #30 tablet 10/01/16 [Rx] Allergies/Adverse Reactions: Allergies lisinopril Adverse Reaction (Verified 11/26/15 07:00) Cough flu vaccine Allergy (Uncoded 11/26/15 07:00) Vomiting Date of admission: 09/29/16 22:30 Primary care physician: Christopher Poole MD Discharging clinician: Seth Park Anticipated date of discharge: 10/01/16 - Patient Status Disposition: Home, Self-Care Condition: Fair Functional capacity at discharge: independent ambulation Overall status at discharge: patient is progressing back to baseline - Discharge Instructions Instructions: Metoprolol (By mouth), Furosemide (By mouth), Amiodarone (By mouth), Atorvastatin (By mouth), Rivaroxaban (By mouth), Heart Failure (DC), Atrial Fibrillation (DC), Chest Pain (DC), Pacemaker (DC), Chronic Obstructive Pulmonary Disease (DC), Chronic Hypertension (DC) Follow Up With: Benigno Soliz MD [Partnered Physician] - (office will call patient at home with appointment) Christopher Poole MD [Primary Care Provider] - 10/10/16 9:30 am Additional Instructions: 1. Follow-up with your primary care provider in the next 3-5 days 2. Take all prescriptions as prescribed, any concerns or questions contact her primary care provider. 3. Return to the emergency department if: Follow up with cardiology as scheduled - Diet and Activity Activity: increase activity as tolerated Diet: low fat, low cholesterol, low salt diet Interval History: Mr. Landa is a 61 year old male with a history of nonischemic cardiomyopathy and atrial fibrillation status post cardioversion earlier this month who presents to the emergency room due to sudden onset shortness of breath. He was admitted to Gen. medical floor with exacerbation of his systolic heart failure and atrial fibrillation with rapid ventricular rate. He was started on IV Lasix, fluid restrictions and sodium restrictions. Cardiology was consult and he was continued on his beta jassi, amiodarone. He was placed on cardiac monitoring throughout his inpatient stay. His medical records were reviewed demonstrating his last echocardiogram with an ejection fraction of 25-30% nonischemic cardiomyopathy. He has had multiple cardioversions performed in the past and is scheduled for CT mapping on October 08 at [place] for an ablation on October 15. His last cardioversion was 10 days prior to this current admission. EKG upon admission demonstrated atrial fibrillation. He required CPAP for his obstructive sleep apnea while sleeping and that rest during his inpatient stay. He was diuresed back to euvolemic and his rapid ventricular rate normalized. He was seen and evaluated on 10/01/2016 and deemed stable for discharge home with close follow-up with cardiology and recommended to continue 2 L fluid restriction 2 g salt restriction. Patient demonstrated understanding and agreement to compliance. Hospital course: Mr. Landa is a 61 year old male - Time Spent with Patient Total time spent providing and/or coordinating discharge services: - Constitutional Vitals: Temp Pulse Resp BP Pulse Ox 97.8 F 102 18 101/75 97 10/01/16 06:43 10/01/16 06:43 10/01/16 06:43 10/01/16 06:43 10/01/16 06:43 General appearance: Present: A&O X 3, morbidly obese, pleasant, no acute distress, answers questions appropriately Exam: General: Patient alert, awake, oriented 3, interactive, in no acute distress HEENT: Normocephalic, atraumatic, pupils equal reactive to light, nasal cavity patent and open septum median position, oral mucosa moist, uvula midline, neck supple trachea midline no palpable lymphadenopathy, no thyromegaly. Chest: Symmetric bilateral correlating with respiratory effort, effort nonlabored. Cardiac: Irregularly irregular heart rate and rhythm,no bruits appreciated bilateral carotids, Radial pulses 2+ bilateral, posterior tibial and dorsal pedal pulses 2+ bilateral. Respiratory: Clear to auscultation all lung hinson Abdomen: Soft, nontender, positive bowel sounds, no palpable masses appreciated on examination Extremities: Symmetric bilateral, trace edema bilateral lower extremities, patient moving all 4 extremities spontaneously. Neurologic: No focal deficits appreciated on examination. Face symmetric, muscle strength symmetric bilateral upper and lower extremities. <Bennett Skaggs P - Last Filed: 10/01/16 17:29> Date of Encounter: 10/01/16 - Discharge Diagnosis (1) Atrial fibrillation with RVR Priority: Primary Status: Acute (2) Hypertension Priority: Primary Status: Chronic Qualifiers: Hypertension type: essential hypertension Qualified Code(s): I10 - Essential (primary) hypertension (3) Morbid obesity Priority: Secondary Status: Chronic Qualifiers: Obesity type: unspecified obesity type Qualified Code(s): E66.01 - Morbid ( severe) obesity due to excess calories (4) SNEHA on CPAP Priority: Secondary Status: Chronic (5) DVT prophylaxis Priority: Secondary Status: Acute Date of admission: 09/29/16 22:30 Primary care physician: Christopher Poole MD Hospital course: Mr. Landa is a 61 year old male - Time Spent with Patient Total time spent providing and/or coordinating discharge services: - Constitutional Vitals: Temp Pulse Resp BP Pulse Ox 97.8 F 102 14 101/75 96 10/01/16 06:43 10/01/16 06:43 10/01/16 11:50 10/01/16 06:43 10/01/16 11:50 - Attending Attestation I examined this patient and my medical decision-making was reviewed with the PYROTECHNIC ASSEMBLER/PA/Advanced Practice Nurse/Resident Physician. I agree with the documented findings, disposition and treatment plan as described except to the extent set forth below.
[2016-10-01] MEDS: Metoprolol XL (24 HR) Succ 50 MG TAB.ER.24H PO SCH (09:10)
[2016-10-01] MEDS: Aspirin Enteric Coated 81 MG Tablet PO SCH (09:10)
[2016-10-01] MEDS: Loratadine 10 MG TABLET PO SCH (09:10)
[2016-10-01] MEDS: *HR* Amiodarone 200 MG TABLET PO SCH (09:10)
[2016-10-01] MEDS: *HR* Rivaroxaban 10 MG TABLET PO SCH (09:11)
[2016-10-01] MEDS: Budesonide/Formoterol 80/4.5 MDI IH SCH (11:50)
== END 2016-10-01 12:36 | disposition home or self-care (01) | DRG 308 ==
LOC: 2NENU 17:28 → EMEROO 17:28 → 2NENU 22:36
PROVIDERS: ADMIT Family Medicine; ATTEND Internal Medicine

== ENCOUNTER 2019-05-18 06:15 | Inpatient (IN) ==
[~2019-05-18 06:15] MED LIST: Gabapentin 300 MG CAPSULE PO ONE; Ipratropium/Albuterol Neb 3 ML IH ONE
[2019-05-18] MEDS ORDERED: Ethanol\\Acetic Acid\\Na Ace\\Ben 1,000 ML IRRIG.SOLN IR ONE (06:27)
[2019-05-18] MEDS ORDERED: CeFAZolin Syr 2,000MG/20 ML 2,000 MG/20 ML SYRINGE IVPB ONE (06:33)
[2019-05-18] MEDS ORDERED: Ringers Solution, Lactated 1,000 ML IVC SCH ×2 (06:45→11:38)
[2019-05-18] MEDS ORDERED: *HR* Midazolam HCl 2 MG/2 ML VIAL ONE (06:48)
[2019-05-18] MEDS ORDERED: *HR* FentaNYL (PF) 100 MCG/2 ML VIAL ONE ×2 (06:48→09:20)
[2019-05-18] MEDS ORDERED: CeFAZolin Syr 3,000MG/30 ML 3,000 MG/30 ML SYRINGE IVPB ONE (06:50)
[2019-05-18] MEDS ORDERED: Albuterol 2.5 MG/3 ML NEBULIZER IH PRN (06:50)
[2019-05-18] MEDS ORDERED: Ondansetron 4 MG/2 ML VIAL ONE (06:51)
[2019-05-18] MEDS ORDERED: Lidocaine -MPF 4% 5 ML AMPUL ONE (06:51)
[2019-05-18] MEDS ORDERED: *HR* Propofol 200 MG/20 ML VIAL IVP ONE (06:53)
[2019-05-18] MEDS ORDERED: Metoprolol XL (24 HR) Succ 50 MG TAB.ER.24H PO STA (06:58)
[2019-05-18] MEDS ORDERED: *HR* PHENYLEPHRINE 1,000 MCG/10 ML SYRINGE IVP ONE ×2 (08:03→10:35)
[2019-05-18] MEDS ORDERED: EPHEDrine 50 MG/ML VIAL ONE (08:04)
[2019-05-18] MEDS ORDERED: Heparin 1,000 UNITS/500 mL 500 ML ONE (08:08)
[2019-05-18] MEDS ORDERED: *HR* Promethazine 25 MG/ML VIAL IVP PRN ×2 (08:09→11:38)
[2019-05-18] MEDS ORDERED: *HR* HYDROmorphone (PF) 1 MG/ML SYRINGE IVP PRN (08:09)
[2019-05-18] MEDS ORDERED: Ropivacaine/PF 0.5% 30 ML VIAL ONE (08:13)
[2019-05-18 08:48] LABS: Hematocrit 36.6 % (37.5-50.1); Mean Corpuscular HGB Conc 35.5 g/dL (31.6-35.5); Mean Corpuscular Volume 90.1 fL (83.0-100.0); Platelet Count 158 K/mcL (140-400); Red Blood Count 4.06 M/mcL (4.19-5.50); Red Cell Distribution Width 12.9 % (11.5-14.5); White Blood Count 4.7 K/mcL (4.3-11.1)
[2019-05-18] MEDS ORDERED: Aspirin Enteric Coated 81 MG Tablet PO SCH (09:00)
[2019-05-18 09:02] LABS: INR 0.9
[2019-05-18 09:05] LABS: Activated Partial Thrombo Time 29.5 Seconds (26.0-36.0)
[2019-05-18] MEDS ORDERED: Tranexamic Acid 1,000 MG/10 ML VIAL ONE (09:10)
[2019-05-18 09:14] LABS: Alanine Aminotransferase 19 Units/L (7-52); Albumin 4.1 g/dL (3.5-5.7); Albumin/Globulin Ratio 1.9 (1.1-2.2); Alkaline Phosphatase 110 Units/L (34-104); Aspartate Amino Transferase 16 Units/L (13-39); BUN/Creatinine Ratio 24 (6-26); Bilirubin,Total 0.4 mg/dL (0.3-1.0); Blood Urea Nitrogen 21 mg/dL (8-23); Carbon Dioxide 25 mEq/L (23-29); Chloride 101 mEq/L (98-107); Globulin 2.2 g/dL (2.4-3.5); Glucose 165 mg/dL (70-105); Osmolality,Calculated 291 (280-300); Potassium 4.2 mEq/L (3.5-5.1); Sodium 137 mEq/L (136-145); Total Protein 6.3 g/dL (6.4-8.9); eGFR For African Americans > 60 (> 60); eGFR For Non-African Americans > 60 (> 60)
[2019-05-18] MEDS ORDERED: *HR* Remifentanil 1 MG VIAL IVP ONE ×2 (09:15→10:00)
[2019-05-18] MEDS ORDERED: *HR* Succinylcholine 200 MG/10 ML VIAL IVP ONE (09:31)
[2019-05-18] MEDS ORDERED: *HR* Rocuronium Bromide 50 MG/5 ML VIAL ONE (09:31)
[2019-05-18] MEDS ORDERED: Albumin Human 5% 25.0 GM/500 ML VIAL ONE (09:57)
[2019-05-18] MEDS ORDERED: *HR* HYDROMORPHONE 2 MG/ML VIAL ONE (10:43)
[2019-05-18] MEDS ORDERED: *HR* Dextrose 50 % in Water (Syg) 50 ML SYRINGE IVP PRN ×2 (11:38→17:24)
[2019-05-18] MEDS ORDERED: MOM Conc 10 ML UD.LIQ PO PRN (11:38)
[2019-05-18] MEDS ORDERED: Dextrose Gel 15 GM/37.5 ML TUBE PO PRN ×4 (11:38→17:24)
[2019-05-18] MEDS ORDERED: Ondansetron 4 MG/2 ML VIAL IVP PRN (11:38)
[2019-05-18] MEDS ORDERED: D5% in Water 1,000 ML IVC PRN ×2 (11:38→17:24)
[2019-05-18] MEDS ORDERED: NON-FORMULARY MEDICATION 1 EACH EACH (Multivitamin [One Daily Essential] 1 TAB) PO SCH (11:38)
[2019-05-18] MEDS ORDERED: *HR* OxyCODONE Immed Rel 5 MG TABLET PO PRN (11:38)
[2019-05-18] MEDS ORDERED: Naloxone 0.4 MG/ML INJ IVP PRN (11:38)
[2019-05-18] MEDS ORDERED: Sennosides 8.6 MG TABLET PO PRN (11:38)
[2019-05-18 11:57] LABS: Hematocrit 32.6 % (37.5-50.1); Hemoglobin 11.7 g/dL (12.9-16.9)
[2019-05-18] MEDS: Furosemide 40 MG TABLET PO SCH (12:45)
[2019-05-18] MEDS: Cholecalciferol (D-3) 1,000 UNIT (25MCG) TABLET PO SCH (12:45)
[2019-05-18] MEDS: Multivit/Ca/Min/Fe/FA 1 TAB TABLET PO SCH (12:45)
[2019-05-18] MEDS: Ascorbic Acid 500 MG TABLET PO SCH ×2 (12:45→16:40)
[2019-05-18] MEDS: Magnesium Oxide 400 MG TABLET PO SCH ×2 (12:45→21:21)
[2019-05-18] MEDS: *HR* Glimepiride 2 MG TABLET PO SCH (12:47)
[2019-05-18] MEDS: HYDROcodone BIT/Homatropine 5 MG TABLET PO PRN ×2 (12:49→23:55)
[2019-05-18] MEDS: ceFAZolin 3,000 MG in 0.9 % Sodium Chloride 100 ML IVPB SCH ×2 (16:39→23:44)
[2019-05-18] MEDS: *HR* Metformin 500 MG TABLET PO SCH (16:40)
[2019-05-18] MEDS ORDERED: *HR* Rivaroxaban 10 MG TABLET PO SCH (17:00)
[2019-05-18] MEDS: Insulin LISPRO 300 UNITS/3 ML VIAL SQ SCH (17:43)
[2019-05-18] MEDS ORDERED: Total Joint Mixture (50 ml) IR ONE (18:10)
[2019-05-18] MEDS: Budesonide/Formoterol 160/4.5 1 PUFF INH IH SCH (20:22)
[2019-05-18] MEDS ORDERED: Insulin LISPRO 300 UNITS/3 ML VIAL SQ SCH ×2 (21:00)
[2019-05-19] MEDS: HYDROcodone BIT/Homatropine 5 MG TABLET PO PRN ×2 (04:22→08:42)
[2019-05-19 06:32] LABS: Basophils % 0.3 %; Eosinophils # 0.3 K/mcL (0.0-0.6); Eosinophils % 5.2 %; Hematocrit 30.8 % (37.5-50.1); Hemoglobin 10.4 g/dL (12.9-16.9); Immature Granulocytes % 0.2 % (0-4); Lymphocytes % 17.2 %; Mean Corpuscular HGB Conc 33.8 g/dL (31.6-35.5); Mean Corpuscular Hemoglobin 31.6 pg (28.0-33.3); Mean Corpuscular Volume 93.6 fL (83.0-100.0); Mean Platelet Volume 10.1 fL (9.4-12.4); Monocytes # 0.8 K/mcL (0.0-1.3); Monocytes % 13.6 %; Neutrophils # 3.7 K/mcL (1.6-8.9); Platelet Count 126 K/mcL (140-400); Red Blood Count 3.29 M/mcL (4.19-5.50); Red Cell Distribution Width 12.8 % (11.5-14.5); Segmented Neutrophils % 63.5 %; White Blood Count 5.8 K/mcL (4.3-11.1)
[2019-05-19 06:49] LABS: BUN/Creatinine Ratio 18 (6-26); Blood Urea Nitrogen 16 mg/dL (8-23); Calcium 8.5 mg/dL (8.6-10.3); Carbon Dioxide 26 mEq/L (23-29); Chloride 97 mEq/L (98-107); Glucose 183 mg/dL (70-105); Osmolality,Calculated 284 (280-300); Sodium 134 mEq/L (136-145); eGFR For African Americans > 60 (> 60); eGFR For Non-African Americans > 60 (> 60)
[2019-05-19 07:27] VITALS: BP 126/78
[2019-05-19] MEDS: Budesonide/Formoterol 160/4.5 1 PUFF INH IH SCH (07:54)
[2019-05-19] MEDS: *HR* Glimepiride 2 MG TABLET PO SCH (08:42)
[2019-05-19] MEDS: Cholecalciferol (D-3) 1,000 UNIT (25MCG) TABLET PO SCH (08:43)
[2019-05-19] MEDS: Magnesium Oxide 400 MG TABLET PO SCH (08:43)
[2019-05-19] MEDS: *HR* Metformin 500 MG TABLET PO SCH (08:43)
[2019-05-19] MEDS: Ascorbic Acid 500 MG TABLET PO SCH (08:43)
[2019-05-19] MEDS: Multivit/Ca/Min/Fe/FA 1 TAB TABLET PO SCH (08:43)
[2019-05-19] MEDS: Insulin LISPRO 300 UNITS/3 ML VIAL SQ SCH (08:43)
[2019-05-19] MEDS: Furosemide 40 MG TABLET PO SCH (08:43)
[2019-05-19] MEDS ORDERED: Metoprolol XL (24 HR) Succ 50 MG TAB.ER.24H PO SCH (09:00)
[2019-05-19] MEDS ORDERED: Aspirin Enteric Coated 81 MG Tablet PO SCH (09:00)
== END 2019-05-19 11:55 | disposition home health service (06) | DRG 466 ==
LOC: SAMDAY 06:15 → 3NENU 11:33
PROVIDERS: ADMIT Orthopaedic Surgery; ATTEND Orthopaedic Surgery

== ENCOUNTER 2021-06-30 21:09 | Inpatient (IN) ==
[2021-06-30] MEDS ORDERED: Naloxone 0.4 MG/ML INJ IVP PRN (22:25)
[2021-07-01] MEDS ORDERED: Ondansetron 4 MG/2 ML VIAL IVP PRN ×2 (00:21→09:14)
[2021-07-01] MEDS ORDERED: 0.9 % Sodium Chloride 1,000 ML IVC SCH (01:30)
[2021-07-01] MEDS ORDERED: D5% in Water 1,000 ML IVC PRN ×2 (01:43→11:39)
[2021-07-01] MEDS ORDERED: *HR* Dextrose 50 % in Water (Syg) 50 ML SYRINGE IVP PRN ×2 (01:43→11:39)
[2021-07-01] MEDS ORDERED: Dextrose 4 GM Chewable Tablets PO PRN ×4 (01:43→11:39)
[2021-07-01] MEDS ORDERED: Acetaminophen IV 1,000 MG/100 ML BAG IVPB SCH ×2 (06:00→12:00)
[2021-07-01] MEDS ORDERED: Insulin LISPRO 300 UNITS/3 ML VIAL SUBQ SCH (06:00)
[2021-07-01 06:55] LABS: Hematocrit 38.9 % (37.5-50.1); Hemoglobin 13.3 g/dL (12.9-16.9); Mean Corpuscular HGB Conc 34.2 g/dL (31.6-35.5); Mean Corpuscular Hemoglobin 31.4 pg (28.0-33.3); Mean Platelet Volume 9.7 fL (9.4-12.4); Platelet Count 140 K/mcL (140-400); Red Blood Count 4.23 M/mcL (4.19-5.50); Red Cell Distribution Width 13.9 % (11.5-14.5); White Blood Count 8.6 K/mcL (4.3-11.1)
[2021-07-01] MEDS ORDERED: Famotidine 20 MG/2 ML VIAL IVP ONE (07:02)
[2021-07-01 07:08] LABS: INR 1.2
[2021-07-01 07:14] LABS: BUN/Creatinine Ratio 16 (6-26); Blood Urea Nitrogen 16 mg/dL (8-23); Carbon Dioxide 29 mEq/L (23-29); Chloride 100 mEq/L (98-107); Glucose 164 mg/dL (70-105); Osmolality,Calculated 283 (280-300); Potassium 4.3 mEq/L (3.5-5.1); Sodium 134 mEq/L (136-145); eGFR For African Americans > 60 (> 60); eGFR For Non-African Americans > 60 (> 60)
[2021-07-01] MEDS ORDERED: *HR* Succinylcholine 200 MG/10 ML VIAL IVP ONE (07:24)
[2021-07-01] MEDS ORDERED: Ondansetron 4 MG/2 ML VIAL ONE (07:24)
[2021-07-01] MEDS ORDERED: *HR* Rocuronium Bromide 50 MG/5 ML VIAL ONE ×2 (07:24→08:50)
[2021-07-01] MEDS ORDERED: Lidocaine -MPF 2% 5 ML VIAL ONE (07:24)
[2021-07-01] MEDS ORDERED: *HR* FentaNYL (PF) 100 MCG/2 ML VIAL ONE ×2 (07:25→09:38)
[2021-07-01] MEDS ORDERED: *HR* Propofol 200 MG/20 ML VIAL IVP ONE (07:25)
[2021-07-01] MEDS: Budesonide/Formoterol 80/4.5 1 PUFF INH IH SCH ×2 (07:27→19:47)
[2021-07-01] MEDS: Tiotropium 10 INH DOSE IH SCH ×2 (07:28→19:47)
[2021-07-01] MEDS ORDERED: Famotidine 20 MG/2 ML VIAL ONE (07:37)
[2021-07-01] MEDS ORDERED: Piperacillin/Tazobactam 3.375 GM in 0.9 % Sodium Chloride Mini Bag 100 ML IVPB SCH (08:00)
[2021-07-01] MEDS ORDERED: Ketorolac 30 MG/ML VIAL ONE (08:51)
[2021-07-01] MEDS ORDERED: Furosemide 40 MG TABLET PO SCH (09:00)
[2021-07-01] MEDS ORDERED: Metoprolol XL (24 HR) Succ 50 MG TAB.ER.24H PO SCH (09:00)
[2021-07-01] MEDS ORDERED: *HR* HYDROmorphone PF 0.5 MG/0.5 ML SYRINGE IVP PRN (09:14)
[2021-07-01] MEDS ORDERED: Acetaminophen 325 MG TABLET PO PRN (11:39)
[2021-07-01] MEDS ORDERED: Ipratropium/Albuterol Neb 3 ML IH PRN (11:40)
[2021-07-01] MEDS ORDERED: *HR* HYDROcodone/Acet 5/325 mg TABLET PO PRN (12:11)
[2021-07-01] MEDS ORDERED: Naloxone 0.4 MG/ML INJ IVP PRN (12:11)
[2021-07-01] MEDS ORDERED: *HR* OxyCODONE Immed Rel 5 MG TABLET PO PRN (12:11)
[2021-07-01] MEDS: Piperacillin/Tazobactam 3.375 GM in 0.9 % Sodium Chloride Mini Bag 100 ML IVPB SCH (18:16)
[2021-07-01] MEDS: Insulin LISPRO 300 UNITS/3 ML VIAL SUBQ SCH (18:16)
[2021-07-01] MEDS: Metoprolol XL (24 HR) Succ 50 MG TAB.ER.24H PO SCH (20:53)
[2021-07-01] MEDS: Insulin DETEMIR 100 UNIT/ML X5UNITS SUBQ SCH (20:54)
[2021-07-02] MEDS: Piperacillin/Tazobactam 3.375 GM in 0.9 % Sodium Chloride Mini Bag 100 ML IVPB SCH ×4 (00:27→23:18)
[2021-07-02 06:56] LABS: Basophils % 0.5 %; Eosinophils # 0.1 K/mcL (0.0-0.6); Eosinophils % 0.6 %; Hematocrit 39.1 % (37.5-50.1); Hemoglobin 13.3 g/dL (12.9-16.9); Immature Granulocytes % 0.4 % (0-4); Lymphocytes # 1.9 K/mcL (0.6-4.6); Lymphocytes % 23.2 %; Mean Corpuscular Hemoglobin 31.3 pg (28.0-33.3); Mean Platelet Volume 9.7 fL (9.4-12.4); Monocytes % 11.6 %; Neutrophils # 5.2 K/mcL (1.6-8.9); Platelet Count 146 K/mcL (140-400); Red Blood Count 4.25 M/mcL (4.19-5.50); Red Cell Distribution Width 13.6 % (11.5-14.5); Segmented Neutrophils % 63.7 %; White Blood Count 8.2 K/mcL (4.3-11.1)
[2021-07-02 07:16] LABS: BUN/Creatinine Ratio 14 (6-26); Blood Urea Nitrogen 13 mg/dL (8-23); Calcium 8.9 mg/dL (8.6-10.3); Carbon Dioxide 26 mEq/L (23-29); Chloride 100 mEq/L (98-107); Glucose 162 mg/dL (70-105); Osmolality,Calculated 282 (280-300); Potassium 3.8 mEq/L (3.5-5.1); Sodium 134 mEq/L (136-145); eGFR For African Americans > 60 (> 60); eGFR For Non-African Americans > 60 (> 60)
[2021-07-02] MEDS ORDERED: CHROMIUM PICOLINATE 200 MCG PO SCH (09:00)
[2021-07-02] MEDS: Pantoprazole 40 MG VIAL IVP SCH (09:27)
[2021-07-02] MEDS: Ascorbic Acid 500 MG TABLET PO SCH (09:28)
[2021-07-02] MEDS: Metoprolol XL (24 HR) Succ 50 MG TAB.ER.24H PO SCH (09:29)
[2021-07-02] MEDS: Insulin LISPRO 300 UNITS/3 ML VIAL SUBQ SCH ×3 (09:39→16:40)
[2021-07-02] MEDS: *HR* Heparin 5,000 UNIT/ML VIAL SQ SCH (17:19)
[2021-07-02] MEDS: Insulin DETEMIR 100 UNIT/ML X5UNITS SUBQ SCH (20:34)
[2021-07-03 04:58] LABS: Basophils % 0.7 %; Eosinophils # 0.4 K/mcL (0.0-0.6); Eosinophils % 6.6 %; Hemoglobin 12.5 g/dL (12.9-16.9); Immature Granulocytes % 0.3 % (0-4); Lymphocytes # 1.8 K/mcL (0.6-4.6); Lymphocytes % 29.8 %; Mean Corpuscular HGB Conc 33.8 g/dL (31.6-35.5); Mean Corpuscular Hemoglobin 31.8 pg (28.0-33.3); Mean Corpuscular Volume 94.1 fL (83.0-100.0); Mean Platelet Volume 9.7 fL (9.4-12.4); Monocytes # 0.8 K/mcL (0.0-1.3); Monocytes % 12.6 %; Platelet Count 146 K/mcL (140-400); Red Blood Count 3.93 M/mcL (4.19-5.50); Red Cell Distribution Width 13.6 % (11.5-14.5); White Blood Count 6.1 K/mcL (4.3-11.1)
[2021-07-03] MEDS: *HR* Heparin 5,000 UNIT/ML VIAL SQ SCH (05:06)
[2021-07-03 05:19] LABS: BUN/Creatinine Ratio 14 (6-26); Blood Urea Nitrogen 15 mg/dL (8-23); Calcium 8.7 mg/dL (8.6-10.3); Carbon Dioxide 27 mEq/L (23-29); Chloride 100 mEq/L (98-107); Glucose 146 mg/dL (70-105); Osmolality,Calculated 281 (280-300); Potassium 4.5 mEq/L (3.5-5.1); Sodium 134 mEq/L (136-145); eGFR For African Americans > 60 (> 60); eGFR For Non-African Americans > 60 (> 60)
[2021-07-03 07:56] VITALS: BP 131/79; PULSE 67; TEMP 99.4
[2021-07-03 08:32] VITALS: O2SAT 95
[2021-07-03] MEDS: Pantoprazole 40 MG VIAL IVP SCH (08:32)
[2021-07-03] MEDS: Insulin LISPRO 300 UNITS/3 ML VIAL SUBQ SCH (08:39)
[2021-07-03] MEDS: Piperacillin/Tazobactam 3.375 GM in 0.9 % Sodium Chloride Mini Bag 100 ML IVPB SCH (08:41)
[2021-07-03] MEDS: Ascorbic Acid 500 MG TABLET PO SCH (08:41)
[2021-07-03] MEDS: Metoprolol XL (24 HR) Succ 50 MG TAB.ER.24H PO SCH (08:42)
[2021-07-03] MEDS ORDERED: Aspirin Enteric Coated 81 MG Tablet PO SCH (09:00)
[2021-07-03] MEDS ORDERED: Tiotropium 10 INH DOSE IH SCH (09:00)
[2021-07-03] MEDS ORDERED: *HR* Rivaroxaban 10 MG TABLET PO SCH (17:00)
== END 2021-07-03 10:42 | disposition home or self-care (01) | DRG 335 ==
LOC: 3ANU
PROVIDERS: ADMIT Student in an Organized Health Care Education/Training Program; ATTEND Student in an Organized Health Care Education/Training Program